=== PATIENT | male | born 1960 | race Caucasian/White ===

== ENCOUNTER 2019-10-17 13:48 | Emergency (ER) | payer MEDICARE ==
[2019-10-17 14:06] VITALS: RESP 18
--- NOTE | 2019-10-17 14:15 | ED ---
Extremity Problem HPI - General Chief complaint: Extremity Problem,Nontraumatic Stated complaint: R leg pain Time Seen by Provider: 10/17/19 13:53 Source: patient, RN notes reviewed, old records reviewed Mode of arrival: ambulatory Limitations: no limitations - History of Present Illness Initial comments: this is a 59-year-old male date ER considered for evaluation regards to right leg pain severe history of venous disease and varices. Patient's concerned about clot has pain in his right calf up his right leg. No history of blood clots no chills. No chest pain or shortness of breath. Patient is unable to this. No recent surgeries. MD Complaint: extremity pain, extremity swelling, other (right lower pain) -: days(s) Location: right, lower extremity History of Same: Yes (not as severe) Radiation: proximal Severity scale (1-10): 6 Quality: aching Consistency: constant Improves with: nothing Worsens with: nothing Associated Symptoms: denies other symptoms - Related Data Home Medications Medication Instructions Recorded Confirmed Budesonide-Formot 160-4.5 Mcg 2 puff INHALATION BID 06/02/15 10/04/15 [Symbicort 160-4.5 Mcg Inhaler] Enalapril [Vasotec] 10 mg PO BID 06/02/15 10/04/15 Ipratropium/Albuterol Sulfate 2 puff INHALATION BID 06/02/15 10/04/15 [Combivent Respimat Inhaler] Isosorbide Dinitrate 30 mg PO DAILY 06/02/15 10/04/15 Metoprolol Tartrate 25 mg PO BID 06/02/15 10/04/15 Nitroglycerin Sl Tabs [Nitrostat] 0.4 mg SUBLINGUAL Q5M PRN 06/02/15 10/04/15 amLODIPine [Norvasc] 10 mg PO DAILY 06/02/15 10/04/15 glyBURIDE/METFORMIN HCL 2 each PO BID 06/02/15 10/04/15 [glyBURIDE/METFORMIN HCL 5-500 mg] Insulin Detemir [Levemir Flextouch] 53 units SQ DAILY 06/09/15 10/04/15 Atorvastatin [Lipitor] 40 mg PO DAILY 08/03/15 10/04/15 Hydrochlorothiazide [Hydrodiuril] 25 mg PO DAILY 08/03/15 10/04/15 Linagliptin [Tradjenta] 5 mg PO DAILY 08/03/15 10/04/15 Gabapentin 600 mg PO TID 10/04/15 10/04/15 HYDROcodone/APAP 10-325MG [[place] 10 mg PO Q6H PRN 10/04/15 10/04/15 10-325] Previous Rx's Medication Instructions Recorded traMADol HCL [Ultram] 50 mg PO Q8H PRN #90 tab 09/06/15 Apixaban [Eliquis Starter Pack 0 mg PO DIRECTED 30 Days #1 pack 10/17/19 (for VTE)] Apixaban [Eliquis] 5 mg PO BID #60 tab 10/17/19 Allergies Allergy/AdvReac Type Severity Reaction Status Date / Time No Known Allergies Allergy Verified 10/04/15 13:43 Review of Systems ROS Statement: Those systems with pertinent positive or pertinent negative responses have been documented in the HPI. ROS Other: All systems not noted in ROS Statement are negative. Past Medical History Past Medical History: Chest Pain / Angina, Heart Failure, COPD, Diabetes Mellitus, Hyperlipidemia, Hypertension, Myocardial Infarction ([place]), Sleep Apnea/CPAP/BIPAP Additional Past Medical History / Comment(s): wound rt talley Last Myocardial Infarction Date:: 1987 History of Any Multi-Drug Resistant Organisms: None Reported Past Surgical History: Adenoidectomy, Cholecystectomy, Heart Catheterization, Tonsillectomy Additional Past Surgical History / Comment(s): UPP, mastoidectomy, septoplasty Past Anesthesia/Blood Transfusion Reactions: No Reported Reaction Past Psychological History: No Psychological Hx Reported Smoking Status: Current every day smoker Past Alcohol Use History: Occasional Past Drug Use History: None Reported - Past Family History Mother Family Medical History: No Reported History Father Family Medical History: Hypertension General Exam Limitations: no limitations General appearance: alert, in no apparent distress Head exam: Present: atraumatic, normocephalic, normal inspection Eye exam: Present: normal appearance, PERRL, EOMI. Absent: scleral icterus, conjunctival injection, periorbital swelling ENT exam: Present: normal exam, mucous membranes moist Neck exam: Present: normal inspection. Absent: tenderness, meningismus, lymphadenopathy Respiratory exam: Present: normal lung sounds bilaterally. Absent: respiratory distress, wheezes, rales, rhonchi, stridor Cardiovascular Exam: Present: normal rhythm, tachycardia, normal heart sounds. Absent: systolic murmur, diastolic murmur, rubs, gallop, clicks GI/Abdominal exam: Present: soft, normal bowel sounds. Absent: distended, tenderness, guarding, rebound, rigid Extremities exam: Present: normal inspection, full ROM, normal capillary refill, calf tenderness, other (significant laboratory calf tenderness pain now back leg, edema with erythema). Absent: tenderness, pedal edema, joint swelling Back exam: Present: normal inspection Neurological exam: Present: alert, oriented X3, CN II-XII intact Psychiatric exam: Present: normal affect, normal mood Skin exam: Present: warm, dry, intact, normal color. Absent: rash Course Vital Signs 10/17/19 10/17/19 14:01 16:22 Temperature 97.9 F 98.0 F Pulse Rate 111 H 100 Respiratory 18 18 Rate Blood Pressure 164/112 124/82 O2 Sat by Pulse 97 95 Oximetry Medical Decision Making - Medical Decision Making 59 male to the ER for evaluation of right leg pain and swelling. Patient does havey DVT can be discharged on eliquis - Radiology Data Radiology results: report reviewed (US RLE is positive for DVT), image reviewed Disposition Clinical Impression: Deep vein thrombosis (DVT) of lower extremity, Right leg DVT Disposition: HOME SELF-CARE Condition: Good Instructions (If sedation given, give patient instructions): Deep Vein Thrombosis (ED) Prescriptions: Apixaban [Eliquis] 5 mg PO BID #60 tab Apixaban [Eliquis Starter Pack (for VTE)] 0 mg PO DIRECTED 30 Days #1 pack Is patient prescribed a controlled substance at d/c from ED?: No Referrals: Ramirez Neves MD [Primary Care Provider] - 1-2 days
[2019-10-17] MEDS ORDERED: APIXABAN 5 MG TAB PO STA (16:13)
[2019-10-17 16:23] VITALS: BP 124/82; PULSE 100; TEMP 98
--- NOTE | 2019-10-17 17:39 | US ---
EXAMINATION TYPE: US venous doppler duplex LE RT DATE OF EXAM: 10/17/2019 2:51 PM COMPARISON: Prior dated 06/27/2015 CLINICAL HISTORY: dvt. right leg pain x 4 days, no h/o dvt SIDE PERFORMED: Right TECHNIQUE: The lower extremity deep venous system is examined utilizing real time linear array sonog brady with graded compression, doppler sonography and color-flow sonography. VESSELS IMAGED: External Iliac Vein (EIV) Common Femoral Vein Deep Femoral Vein Greater Saphenous Vein * Femoral Vein Popliteal Vein Small Saphenous Vein * Proximal Calf Veins (* superficial vessels) Right Leg: Non compressible internal echoes seen from proximal calf veins extending up through proxi mal femoral vein. IMPRESSION: Deep venous thrombosis identified within the right femoral vein to the level of the commo n femoral vein and including the popliteal vein, report called to the emergency department at the [facility].
== END 2019-10-17 16:26 | disposition home or self-care (01) ==
LOC: EC 13:48
DX: I82.411 Acute embolism and thrombosis of right femoral vein (principal); I82.431 Acute embolism and thrombosis of right popliteal vein; E11.9 Type 2 diabetes mellitus without complications; E78.5 Hyperlipidemia, unspecified; I11.0 Hypertensive heart disease with heart failure; I50.9 Heart failure, unspecified; I25.2 Old myocardial infarction; J44.9 Chronic obstructive pulmonary disease, unspecified; F17.200 Nicotine dependence, unspecified, uncomplicated; Z79.01 Long term (current) use of anticoagulants; Z79.4 Long term (current) use of insulin; Z79.51 Long term (current) use of inhaled steroids; Z79.899 Other long term (current) drug therapy; Z95.5 Presence of coronary angioplasty implant and graft
CPT/HCPCS: 99284

== ENCOUNTER 2024-02-11 00:08 | Emergency (ER) | payer MEDICARE, OTHER ==
[2024-02-11 00:33] VITALS: TEMP 98
--- NOTE | 2024-02-11 01:30 | XR ---
EXAM: XR Abdomen, 1 View CLINICAL HISTORY: ITS.REASON XR Reason: constipation TECHNIQUE: Frontal supine view of the abdomen/pelvis. COMPARISON: No relevant prior studies available. FINDINGS: Gastrointestinal tract: Moderate stool burden consistent with constipation. No dilation. No evidence of obstruction. Organs: Gallbladder has been removed. Bones/joints: No acute osseous abnormalities. IMPRESSION: Moderate stool burden consistent with constipation.
--- NOTE | 2024-02-11 02:50 | ED ---
Abdominal Pain HPI - General Chief Complaint: Abdominal Pain Stated Complaint: Constipation Time Seen by Provider: 02/11/24 01:54 Source: patient Mode of arrival: ambulatory Limitations: no limitations - History of Present Illness Initial Comments: 63-year-old male presented to the ED with a chief complaint of constipation. Patient reports he has not had a bowel movement in the past 3 days. Denies abdominal pain. No nausea or vomiting. No chest pain or shortness of breath. No fever or chills. No other complaints at this time. - Related Data Home Medications Medication Instructions Recorded Confirmed Budesonide-Formot 160-4.5 Mcg 2 puff INHALATION BID 06/02/15 10/04/15 [Symbicort 160-4.5 Mcg Inhaler] Enalapril [Vasotec] 10 mg PO BID 06/02/15 10/04/15 Ipratropium/Albuterol Sulfate 2 puff INHALATION BID 06/02/15 10/04/15 [Combivent Respimat Inhaler] Isosorbide Dinitrate 30 mg PO DAILY 06/02/15 10/04/15 Metoprolol Tartrate 25 mg PO BID 06/02/15 10/04/15 Nitroglycerin Sl Tabs [Nitrostat] 0.4 mg SUBLINGUAL Q5M PRN 06/02/15 10/04/15 amLODIPine [Norvasc] 10 mg PO DAILY 06/02/15 10/04/15 glyBURIDE/METFORMIN HCL 2 each PO BID 06/02/15 10/04/15 [glyBURIDE/METFORMIN HCL 5-500 mg] Insulin Detemir [Levemir Flextouch] 53 units SQ DAILY 06/09/15 10/04/15 Atorvastatin [Lipitor] 40 mg PO DAILY 08/03/15 10/04/15 Linagliptin [Tradjenta] 5 mg PO DAILY 08/03/15 10/04/15 hydroCHLOROthiazide [Hydrodiuril] 25 mg PO DAILY 08/03/15 10/04/15 Gabapentin 600 mg PO TID 10/04/15 10/04/15 HYDROcodone/APAP 10-325MG [[place] 10 mg PO Q6H PRN 10/04/15 10/04/15 10-325] Previous Rx's Medication Instructions Recorded traMADol HCL [Ultram] 50 mg PO Q8H PRN #90 tab 09/06/15 Apixaban [Eliquis Starter Pack 0 mg PO DIRECTED 30 Days #1 pack 10/17/19 (for VTE)] Apixaban [Eliquis] 5 mg PO BID #60 tab 10/17/19 polyethylene glycoL 3350 [Miralax] 17 gm PO DAILY #527 gm 02/11/24 Allergies Allergy/AdvReac Type Severity Reaction Status Date / Time No Known Allergies Allergy Verified 10/04/15 13:43 Review of Systems ROS Statement: Those systems with pertinent positive or pertinent negative responses have been documented in the HPI. ROS Other: All systems not noted in ROS Statement are negative. Past Medical History Past Medical History: Chest Pain / Angina, Heart Failure, COPD, Diabetes Mellit [place], Hyperlipidemia, Hypertension, Myocardial Infarction ([place]), Sleep Apnea/CPAP/BIPAP Additional Past Medical History / Comment(s): wound rt [place] Last Myocardial Infarction Date:: 1987 History of Any Multi-Drug Resistant Organisms: None Reported Past Surgical History: Adenoidectomy, Cholecystectomy, Heart Catheterization, Tonsillectomy Additional Past Surgical History / Comment(s): UPP, mastoidectomy, septoplasty, stent in left leg, ablation Past Anesthesia/Blood Transfusion Reactions: No Reported Reaction Past Psychological History: No Psychological Hx Reported Smoking Status: Never smoker Past Alcohol Use History: Occasional Past Drug Use History: None Reported - Past Family History Mother Family Medical History: No Reported History Father Family Medical History: Hypertension General Exam Limitations: no limitations General appearance: alert, in no apparent distress Eye exam: Present: normal appearance Neck exam: Present: normal inspection Respiratory exam: Present: normal lung sounds bilaterally Cardiovascular Exam: Present: regular rate GI/Abdominal exam: Present: soft (Abdomen is soft but there is some distention. No tenderness to palpation. No rebound guarding or rigidity. Bowel sounds active.) Neurological exam: Present: alert, oriented X3 Skin exam: Present: warm, dry Course Vital Signs 02/11/24 00:20 Temperature 98 F Pulse Rate 84 Respiratory 18 Rate Blood Pressure 130/82 O2 Sat by Pulse 98 Oximetry Medical Decision Making - Medical Decision Making Was pt. sent in by a medical professional or institution (, PA, ART HISTORIAN, urgent care, hospital, or residential...) When possible be specific @ -No Did you speak to anyone other than the patient for history (EMS, parent, family, police, friend...)? What history was obtained from this source @ -No Did you review nursing and triage notes (agree or disagree)? Why? @ -I reviewed and agree with nursing and triage notes Were old charts reviewed (outside hosp., previous admission, EMS record, old EKG, old radiological studies, urgent care reports/EKG's, residential records)? Report findings @ -No old charts were reviewed Differential Diagnosis (chest pain, altered mental status, abdominal pain women, abdominal pain men, vaginal bleeding, weakness, fever, dyspnea, syncope, headache, dizziness, GI bleed, back pain, seizure, CVA, palpatations, mental health, musculoskeletal)? @ -Differential Abdominal Pain Men: Appendicitis, cholecystitis, diverticulosis, ischemic bowel, pancreatitis, hepatitis, UTI, gastroenteritis, AAA, incarcerated hernia, bowel obstruction, constipation, inflammatory bowel, hepatitis, peptic ulcer disease, splenic infarction, perforated viscus, testicular torsion, this is not meant to be an all-inclusive list EKG interpreted by me (3pts min.). @ -As above X-rays interpreted by me (1pt min.). @ -X-ray of the abdomen interpreted me showing moderate stool burden consistent with constipation. CT interpreted by me (1pt min.). @ -None done U/S interpreted by me (1pt. min.). @ -None done What testing was considered but not performed or refused? (CT, X-rays, U/S, labs)? Why? @ -None What meds were considered but not given or refused? Why? @ -None Did you discuss the management of the patient with other professionals (zeinab kaur i.e. , PA, ART HISTORIAN, lab, RT, psych nurse, social group worker, slackman, teacher, security patrol officer, case management assistant)? Give summary @ -No Was smoking cessation discussed for >3mins.? @ -No Was critical care preformed (if so, how long)? @ -No Were there social determinants of health that impacted care today? How? (Homelessness, low income, unemployed, alcoholism, drug addiction, transportation, low edu. Level, literacy, decrease access to med. care, senior care, rehab)? @ -No Was there de-escalation of care discussed even if they declined (Discuss DNR or withdrawal of care, Hospice)? DNR status @ -No What co-morbidities impacted this encounter? (DM, HTN, Smoking, COPD, CAD, Cancer, CVA, ARF, Chemo, Hep., AIDS, mental health diagnosis, sleep apnea, morbid obesity)? @ -None Was patient admitted / discharged? Hospital course, mention meds given and route, prescriptions, significant lab abnormalities, going to OR and other pertinent info. @ -Discharge 63-year-old male presented to the ED with complaints of constipation. Has not had a bowel movement in last 3 days. X-ray showed moderate stool burden consistent with constipation. No evidence of obstruction at this time. Patient would like to have an enema and this was provided here in the ED. Discharged home with prescriptions for MiraLAX. Advised to increase fluid intake. Increased fiber intake. Increased physical activity. Discussed return precautions with patient who verbalized agreement. Undiagnosed new problem with uncertain prognosis? @ -No Drug Therapy requiring intensive monitoring for toxicity (Heparin, Nitro, Insulin, Cardizem)? @ -No Were any procedures done? @ -No Diagnosis/symptom? @ -Constipation Acute, or Chronic, or Acute on Chronic? @ -Acute Uncomplicated (without systemic symptoms) or Complicated (systemic symptoms)? @ -Uncomplicated Side effects of treatment? @ -No Exacerbation, Progression, or Severe Exacerbation? @ -No Poses a threat to life or bodily function? How? (Chest pain, [place], [place], pneumonia, PE, COPD, DKA, ARF, appy, cholecystitis, CVA, Diverticulitis, Homicidal, Suicidal, threat to staff... and all critical care pts) @ -No Disposition Clinical Impression: Constipation Disposition: HOME SELF-CARE Condition: Good Instructions (If sedation given, give patient instructions): Constipation (ED), High Fiber Diet (ED) Additional Instructions: Please return to the Emergency Department if symptoms worsen or any other concerns. Please follow-up with your primary care provider. Prescriptions: polyethylene glycoL 3350 [Miralax] 17 gm PO DAILY #527 gm Is patient prescribed a controlled substance at d/c from ED?: No Referrals: Ramirez Neves MD [Primary Care Provider] - 1-2 days Time of Disposition: 02:57
[2024-02-11] MEDS: polyethylene glycoL 3350 17 GM POWD.PACK PO STA (04:14)
[2024-02-11 05:14] VITALS: BP 140/66; PULSE 50; RESP 16
== END 2024-02-11 05:01 | disposition home or self-care (01) ==
LOC: EC 00:08
DX: K59.00 Constipation, unspecified (principal); Z90.49 Acquired absence of other specified parts of digestive tract
CPT/HCPCS: 74018; 99284

== ENCOUNTER 2024-04-20 15:08 | Emergency (ER) | payer MEDICARE, OTHER ==
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
[2024-04-20] MEDS: DIPH,PERTUS(ACELL)TETVAC-LF 0.5 ML VIAL IM ONE (15:31)
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
[2024-04-20 15:39] LABS: Glucose,Whole Blood 313 mg/dL (70-110)
[2024-04-20] MEDS: HYDROmorphone 1 MG/ML 1 ML SYRINGE IVP STA ×2 (15:41→17:58)
[2024-04-20 15:47] LABS: ALT 19 U/L (4-49); AST 28 U/L (17-59); African American GFR (CKD) 85 (>60 ml/min/1.73 sqM); Albumin 3.6 g/dL (3.5-5.0); Alcohol <10 mg/dL; Alkaline Phosphatase 129 U/L (38-126); Anion Gap 7 mmol/L; Blood Urea Nitrogen 23 mg/dL (9-20); Calcium 9.2 mg/dL (8.4-10.2); Carbon Dioxide 22 mmol/L (22-30); Chloride 106 mmol/L (98-107); Glucose 332 mg/dL (74-99); Non-African American GFR(CKD) 73 (>60 ml/min/1.73 sqM); Potassium 4.9 mmol/L (3.5-5.1); Sodium 135 mmol/L (137-145); Total Bilirubin 1.3 mg/dL (0.2-1.3); Total Protein 6.4 g/dL (6.3-8.2)
[2024-04-20 16:03] LABS: INR 1.1 (<1.2); Partial Thromboplastin Time 23.3 sec (22.0-30.0); Prothrombin Time 11.6 sec (10.0-12.5)
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
[2024-04-20 16:25] LABS: Anisocytosis Slight; Basophils # (A) 0.1 k/uL (0-0.2); Basophils % (A) 1 %; Eosinophils # (A) 0.2 k/uL (0-0.7); Eosinophils % (A) 2 %; HCT 52.4 % (39.0-53.0); HGB 14.7 gm/dL (13.0-17.5); Hypochromasia Marked; Lymphocytes # (A) 0.9 k/uL (1.0-4.8); Lymphocytes % (A) 11 %; MCH 20.5 pg (25.0-35.0); MCV 73.2 fL (80.0-100.0); Mean Platelet Volume 8.9; Microcytosis Moderate; Monocytes # (A) 0.8 k/uL (0-1.0); Monocytes % (A) 9 %; Neutrophils # (A) 6.3 k/uL (1.3-7.7); Neutrophils % (A) 74 %; Platelet Count 325 k/uL (150-450); RDW 18.9 % (11.5-15.5); WBC 8.5 k/uL (3.8-10.6)
[2024-04-20 16:27] LABS: RBC 7.17 m/uL (4.30-5.90)
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
[2024-04-20 18:03] VITALS: PULSE 97; RESP 18
[2024-04-20 18:30] VITALS: BP 149/110
[2024-04-20 18:58] LABS: Amphetamine Screen,Urine Not Detected (NotDetected); Barbiturate Screen,Urine Not Detected (NotDetected); Benzodiazepines Screen,Urine Not Detected (NotDetected); Cocaine Screen,Urine Not Detected (NotDetected); Methadone Screen, Urine Not Detected (NotDetected); Opiate Screen,Urine Detected (NotDetected); Oxycodone Screen, Urine Not Detected (NotDetected); Phencyclidine Screen,Urine Not Detected (NotDetected); Tricyclic Antidepressant,Urine Not Detected (NotDetected); Urn Cannabinoid Scrn Not Detected (NotDetected)
== END 2024-04-20 18:30 | disposition other institution (70) ==
LOC: EC 15:08
DX: S32.591A Other specified fracture of right pubis, initial encounter for closed fracture (principal); S32.401A Unspecified fracture of right acetabulum, initial encounter for closed fracture; I44.0 Atrioventricular block, first degree; Z23 Encounter for immunization; V28.49XA Other motorcycle driver injured in noncollision transport accident in traffic accident, initial encounter; Y92.410 Unspecified street and highway as the place of occurrence of the external cause
CPT/HCPCS: 96374; 96376; 90471; 36415; 93005; 86900; 86901; 80053; 85025; 85610; 85730; 86850; 80306; 80320; 72170; 73110; 71045; 72192; 72125; 70450; 73700; 90715; 99291; J1170; 99285

== ENCOUNTER → 2024-12-24 | Outpatient (CLI) | payer MEDICARE ==
[2024-12-24 16:23] LABS: African American GFR (CKD) 56 (>60 ml/min/1.73 sqM); Blood Urea Nitrogen 30 mg/dL (9-20); Non-African American GFR(CKD) 48 (>60 ml/min/1.73 sqM)
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
== END | disposition home or self-care (01) ==
LOC: RADCTMAIN 15:16
PROVIDERS: ATTEND Nurse Practitioner Family
DX: R19.09 Other intra-abdominal and pelvic swelling, mass and lump (principal)
CPT/HCPCS: 82565; 84520; 74177; 36415; Q9967

== ENCOUNTER 2025-03-12 17:01 | Inpatient (IN) | payer MEDICARE ==
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
[2025-03-12 19:18] LABS: Basophils # (A) 0.17 10*3/uL (0.00-0.10); Eosinophils # (A) 0.36 10*3/uL (0.04-0.35); Eosinophils % (A) 4.2 %; HCT 46.8 % (39.6-50.0); HGB 13.7 g/dL (13.0-17.0); Lymphocytes # (A) 0.56 10*3/uL (0.90-5.00); Lymphocytes % (A) 6.5 %; MCH 20.6 pg (27.0-32.0); MCHC 29.3 g/dL (32.0-37.0); MCV 70.4 fL (80.0-97.0); Mean Platelet Volume 9.8 fL (9.5-12.2); Monocytes # (A) 1.09 10*3/uL (0.20-1.00); Monocytes % (A) 12.7 %; Neutrophils # (A) 6.37 10*3/uL (1.80-7.70); Neutrophils % (A) 74.1 %; Platelet Count 321 10*3/uL (140-440); RBC 6.65 10*6/uL (4.40-5.60); WBC 8.59 10*3/uL (4.50-10.00)
--- NOTE | 2025-03-12 19:21 | ED ---
General Adult HPI - General Source: patient, RN notes reviewed Mode of arrival: wheelchair Limitations: no limitations <KierraParveen - Last Filed: 03/12/25 19:19> - General Source: patient, RN notes reviewed <Citlaly Cuenca - Last Filed: 03/12/25 21:42> - General Chief complaint: Shortness of Breath Stated complaint: JAMIA Time Seen by Provider: 03/12/25 17:20 - History of Present Illness Initial comments: Quick note: This is a 64-year-old male with history including AMI, CHF and COPD presenting for difficulty breathing x 6 weeks. Patient states he is also having dyspnea with exertion and orthopnea. States he has been taking Lasix with some relief but has recently been unable to have his prescription refilled by his primary care. Denies chest pain, dizziness, hemoptysis. (Parveen Lozada) 64-year-old male with history of CHF, COPD, and DM, hyperlipidemia, hypertension, CAD presenting for difficulty breathing x 2 months. States he is experiencing dyspnea with exertion and orthopnea. States he feels okay at rest but becomes winded with walking approximately 20 feet. Denies chest pain. He takes Lasix 40 mg daily. States he always has swelling in legs and sees a new vascular surgeon next week however denies change in edema. Admits dry cough in the morning. Denies fevers, chills, abdominal pain. Denies blood thinners. (Citlaly Cuenca) - Related Data Home Medications Medication Instructions Recorded Confirmed Ipratropium/Albuterol Sulfate 2 puff INHALATION RT-DAILY 06/02/15 03/12/25 [Combivent Respimat Inhaler] Dulaglutide [Trulicity] 0.75 mg SQ BAIN 03/12/25 03/12/25 Empagliflozin [Jardiance] 10 mg PO DAILY 03/12/25 03/12/25 Furosemide [Lasix] 40 mg PO BID 03/12/25 03/12/25 Insulin Glargine,Hum.rec.anlog 65 units SQ HS 03/12/25 03/12/25 [Toujemiroslava Solostar] Sacubitril/Valsartan [Entresto 24 1 tab PO BID 03/12/25 03/12/25 mg-26 mg Tablet] cilostazoL [Pletal] 100 mg PO BID 03/12/25 03/12/25 metFORMIN HCL ER [Glucophage XR] 1,000 mg PO W/SUPPER 03/12/25 03/12/25 Allergies Allergy/AdvReac Type Severity Reaction Status Date / Time No Known Allergies Allergy Verified 03/12/25 20:28 Review of Systems ROS Other: All systems not noted in ROS Statement are negative. <Parveen Lozada - Last Filed: 03/12/25 19:19> ROS Other: All systems not noted in ROS Statement are negative. <Citlaly Cuenca - Last Filed: 03/12/25 21:42> ROS Statement: Those systems with pertinent positive or pertinent negative responses have been documented in the HPI. Past Medical History Past Medical History: Chest Pain / Angina, Heart Failure, COPD, Diabetes Mellitus, Hyperlipidemia, Hypertension, Myocardial Infarction ([place]), Sleep A pnea/CPAP/BIPAP Additional Past Medical History / Comment(s): wound rt talley Last Myocardial Infarction Date:: 1987 History of Any Multi-Drug Resistant Organisms: None Reported Past Surgical History: Adenoidectomy, Cholecystectomy, Heart Catheterization, Tonsillectomy Additional Past Surgical History / Comment(s): UPP, mastoidectomy, septoplasty, stent in left leg, ablation Past Anesthesia/Blood Transfusion Reactions: No Reported Reaction Past Psychological History: No Psychological Hx Reported Smoking Status: Never smoker Past Alcohol Use History: Occasional Past Drug Use History: None Reported - Past Family History Mother Family Medical History: No Reported History Father Family Medical History: Hypertension <Parveen Lozada - Last Filed: 03/12/25 19:19> General Exam Limitations: no limitations <Parveen Lozada - Last Filed: 03/12/25 19:19> General appearance: alert, in no apparent distress Head exam: Present: atraumatic, normocephalic, normal inspection Eye exam: Present: normal appearance, PERRL, EOMI. Absent: scleral icterus, conjunctival injection, periorbital swelling ENT exam: Present: normal exam, mucous membranes moist Neck exam: Present: normal inspection. Absent: tenderness, meningismus, lymphadenopathy Respiratory exam: Present: rhonchi. Absent: normal lung sounds bilaterally, respiratory distress, wheezes, rales, stridor Cardiovascular Exam: Present: regular rate, normal rhythm, normal heart sounds. Absent: systolic murmur, diastolic murmur, rubs, gallop, clicks Neurological exam: Present: alert, oriented X3 Psychiatric exam: Present: normal affect, normal mood Skin exam: Present: warm, dry, intact, normal color. Absent: rash <Citlaly Cuenca - Last Filed: 03/12/25 21:42> - General Exam Comments Initial Comments: Visual Physical Exam Vital signs reviewed General: Well-appearing, nontoxic, no acute distress. Head: Normocephalic, atraumatic Eyes: PERRLA, EOMI ENT: Airway patent Chest: Nonlabored breathing Skin: No visual rash, normal skin tone Neuro: Alert and oriented 3 Musculoskeletal: No gross abnormalities (Parveen Lozada) Course Vital Signs 03/12/25 03/12/25 03/12/25 17:02 19:42 20:09 Temperature 98.2 F Pulse Rate 98 96 96 Respiratory 17 20 Rate Blood Pressure 130/78 151/97 116/84 O2 Sat by Pulse 96 97 97 Oximetry EKG Findings - EKG Results: EKG: interpreted by ERMD (EKG reveals ectopic atrial rhythm with first-degree AV block and right axis deviation. Ventricular rate 95 bpm, HI interval 232, QRS duration 126, QT/QTc 424/476) <BangCitlaly - Last Filed: 03/12/25 21:42> Medical Decision Making <Parveen Lozada - Last Filed: 03/12/25 19:19> - Lab Data Result diagrams: 03/12/25 18:21 03/12/25 18:21 <Citlaly Cuenca - Last Filed: 03/12/25 21:42> - Medical Decision Making I completed the quick note portion of this chart signed LEXA [place] (Parveen Lozada) Was pt. sent in by a medical professional or institution (ANÍBAL García, CLINICAL NURSE MANAGER, urgent care, hospital, or long term...) When possible be specific @ -No Did you speak to anyone other than the patient for history (EMS, parent, family, police, friend...)? What history was obtained from this source @ -No Did you review nursing and triage notes (agree or disagree)? Why? @ -I reviewed and agree with nursing and triage notes Were old charts reviewed (outside hosp., previous admission, EMS record, old EKG, old radiological studies, urgent care reports/EKG's, long term records)? Report findings @ -No old charts were reviewed Differential Diagnosis (chest pain, altered mental status, abdominal pain women, abdominal pain men, vaginal bleeding, weakness, fever, dyspnea, syncope, headache, dizziness, GI bleed, back pain, seizure, CVA, palpatations, mental health, musculoskeletal)? @ -Differential Dyspnea: Coronary syndrome, arrhythmia, tamponade, asthma, COPD, pulmonary embolism, pneumonia, pneumothorax, pulmonary effusion, anaphylaxis, diabetic ketoacidosis, flailed chest, pulmonary contusion, diaphragmatic rupture, anemia, neuromuscular, this is not meant to be an all-inclusive list. EKG interpreted by me (3pts min.). @ -As above X-rays interpreted by me (1pt min.). @ -Chest x-ray reveals cardiomegaly and pulmonary vascular congestive changes CT interpreted by me (1pt min.). @ -None done U/S interpreted by me (1pt. min.). @ -None done What testing was considered but not performed or refused? (CT, X-rays, U/S, labs)? Why? @ -None What meds were considered but not given or refused? Why? @ -None Did you discuss the management of the patient with other professionals (professionals i.e. , PA, CLINICAL NURSE MANAGER, lab, RT, psych nurse, social services, greens laborer, teacher, fire officer, therapeutic case manager)? Give summary @ -I spoke with Dr. Bowers from [facility] who accepts admission for acute CHF exacerbation Was smoking cessation discussed for >3mins.? @ -No Was critical care preformed (if so, how long)? @ -No Were there social determinants of health that impacted care today? How? (Homelessness, low income, unemployed, alcoholism, drug addiction, transportation, low edu. Level, literacy, decrease access to med. care, prison, rehab)? @ -No Was there de-escalation of care discussed even if they declined (Discuss DNR or withdrawal of care, Hospice)? DNR status @ -No What co-morbidities impacted this encounter? (DM, HTN, Smoking, COPD, CAD, Cancer, CVA, ARF, Chemo, Hep., AIDS, mental health diagnosis, sleep apnea, morbid obesity)? @ -CHF Was patient admitted / discharged? Hospital course, mention meds given and route, prescriptions, significant lab abnormalities, going to OR and other pertinent info. @ - admitted. 64-year-old male with history of CHF presenting for dyspnea with exertion x 2 months as well as orthopnea. Denies chest pain. Patient is well-appearing, no acute distress. Rhonchi present in bilateral lung [place]. Lab work remarkable for BNP 4310, troponin 0.060, creatinine 1.83, BUN 32. White blood cell count normal at 8. Chest x-ray reveals cardiomegaly and pulmonary vascular congestive changes. Discussed results with patient. Patient will be admitted to medicine. Patient was started on IV Lasix and repeat troponin ordered however will not heparinize at this time as patient is not currently experiencing chest pain and elevated troponin is contributed to CHF exacerbation. Case was discussed with my ED attending Dr. Fernandes. Undiagnosed new problem with uncertain prognosis? @ -No Drug Therapy requiring intensive monitoring for toxicity (Heparin, Nitro, Insulin, Cardizem)? @ -No Were any procedures done? @ -No Diagnosis/symptom? @ -Acute congestive heart failure exacerbation Acute, or Chronic, or Acute on Chronic? @ -Acute Uncomplicated (without systemic symptoms) or Complicated (systemic symptoms)? @ -Complicated Side effects of treatment? @ -No Exacerbation, Progression, or Severe Exacerbation? @ -Exacerbation Poses a threat to life or bodily function? How? (Chest pain, [place], [place], pneumonia, PE, COPD, DKA, ARF, appy, cholecystitis, CVA, Diverticulitis, Homicidal, Suicidal, threat to staff... and all critical care pts) @ -Yes (Citlaly Cuenca) - Lab Data Lab Results 03/12/25 03/12/25 03/12/25 Range/Units 18:21 18:21 18:21 WBC 8.59 (4.50-10.00) 10*3/uL RBC 6.65 H (4.40-5.60) 10*6/uL Hgb 13.7 (13.0-17.0) g/dL Hct 46.8 (39.6-50.0) % MCV 70.4 L (80.0-97.0) fL MCH 20.6 L (27.0-32.0) pg MCHC 29.3 L (32.0-37.0) g/dL Plt Count 321 (140-440) 10*3/uL MPV 9.8 (9.5-12.2) fL Immature Gran % (Auto) 0.5 % Neutrophils % 74.1 % Lymphocytes % 6.5 % Monocytes % 12.7 % Eosinophils % 4.2 % Basophils % 2.0 % Immature Gran # 0.04 (0.00-0.04) 10*3/uL Neutrophils # 6.37 (1.80-7.70) 10*3/uL Lymphocytes # 0.56 L (0.90-5.00) 10*3/uL Monocytes # 1.09 H (0.20-1.00) 10*3/uL Eosinophils # 0.36 H (0.04-0.35) 10*3/uL Basophils # 0.17 H (0.00-0.10) 10*3/uL Manual Slide Review Performed Anisocytosis (manual) Present PT 12.3 (10.0-12.5) sec INR 1.1 (<1.2) APTT 23.6 (22.0-30.0) sec Sodium 138 (137-145) mmol/L Potassium 4.5 (3.5-5.1) mmol/L Chloride 103 (98-107) mmol/L Carbon Dioxide 25 (22-30) mmol/L Anion Gap 10 mmol/L BUN 32 H (9-20) mg/dL Creatinine 1.83 H (0.66-1.25) mg/dL Est GFR (CKD-EPI)AfAm 44 (>60 ml/min/1.73 sqM) Est GFR (CKD-EPI)NonAf 38 (>60 ml/min/1.73 sqM) Glucose 160 H (74-99) mg/dL Plasma Lactic Acid Tonio (0.7-2.0) mmol/L Calcium 9.2 (8.4-10.2) mg/dL Total Bilirubin 1.6 H (0.2-1.3) mg/dL AST 24 (17-59) U/L ALT 12 (4-49) U/L Alkaline Phosphatase 114 (38-126) U/L Troponin I (0.000-0.034) ng/mL NT-Pro-B Natriuret Pep pg/mL Total Protein 6.2 L (6.3-8.2) g/dL Albumin 3.4 L (3.5-5.0) g/dL 03/12/25 03/12/25 03/12/25 Range/Units 18:21 18:21 20:07 WBC (4.50-10.00) 10*3/uL RBC (4.40-5.60) 10*6/uL Hgb (13.0-17.0) g/dL Hct (39.6-50.0) % MCV (80.0-97.0) fL MCH (27.0-32.0) pg MCHC (32.0-37.0) g/dL Plt Count (140-440) 10*3/uL MPV (9.5-12.2) fL Immature Gran % (Auto) % Neutrophils % % Lymphocytes % % Monocytes % % Eosinophils % % Basophils % % Immature Gran # (0.00-0.04) 10*3/uL Neutrophils # (1.80-7.70) 10*3/uL Lymphocytes # (0.90-5.00) 10*3/uL Monocytes # (0.20-1.00) 10*3/uL Eosinophils # (0.04-0.35) 10*3/uL Basophils # (0.00-0.10) 10*3/uL Manual Slide Review Anisocytosis (manual) PT (10.0-12.5) sec INR (<1.2) APTT (22.0-30.0) sec Sodium (137-145) mmol/L Potassium (3.5-5.1) mmol/L Chloride (98-107) mmol/L Carbon Dioxide (22-30) mmol/L Anion Gap mmol/L BUN (9-20) mg/dL Creatinine (0.66-1.25) mg/dL Est GFR (CKD-EPI)AfAm (>60 ml/min/1.73 sqM) Est GFR (CKD-EPI)NonAf (>60 ml/min/1.73 sqM) Glucose (74-99) mg/dL Plasma Lactic Acid Tonio 1.6 (0.7-2.0) mmol/L Calcium (8.4-10.2) mg/dL Total Bilirubin (0.2-1.3) mg/dL AST (17-59) U/L ALT (4-49) U/L Alkaline Phosphatase (38-126) U/L Troponin I 0.060 H* (0.000-0.034) ng/mL NT-Pro-B Natriuret Pep 4310 pg/mL Total Protein (6.3-8.2) g/dL Albumin (3.5-5.0) g/dL Disposition <Parveen Lozada - Last Filed: 03/12/25 19:19> Time of Disposition: 21:42 <Citlaly Cuenca - Last Filed: 03/12/25 21:42> Clinical Impression: Acute exacerbation of congestive heart failure Disposition: ADMITTED IP TO THIS HOSP Referrals: Favio Kirk DO [REFERRING] - 1-2 days
[2025-03-12 19:31] LABS: ALT 12 U/L (4-49); AST 24 U/L (17-59); African American GFR (CKD) 44 (>60 ml/min/1.73 sqM); Albumin 3.4 g/dL (3.5-5.0); Alkaline Phosphatase 114 U/L (38-126); Anion Gap 10 mmol/L; Blood Urea Nitrogen 32 mg/dL (9-20); Calcium 9.2 mg/dL (8.4-10.2); Carbon Dioxide 25 mmol/L (22-30); Chloride 103 mmol/L (98-107); Glucose 160 mg/dL (74-99); Non-African American GFR(CKD) 38 (>60 ml/min/1.73 sqM); Potassium 4.5 mmol/L (3.5-5.1); Sodium 138 mmol/L (137-145); Total Bilirubin 1.6 mg/dL (0.2-1.3); Total Protein 6.2 g/dL (6.3-8.2)
[2025-03-12 19:37] LABS: INR 1.1 (<1.2); Partial Thromboplastin Time 23.6 sec (22.0-30.0); Prothrombin Time 12.3 sec (10.0-12.5)
[2025-03-12 20:18] LABS: Anisocytosis (M) Present
[2025-03-12] MEDS: FUROSEMIDE 10 MG/ML 4 ML VIAL IV STA (22:34)
[2025-03-12] MEDS: FUROSEMIDE 10 MG/ML 4 ML VIAL IV SCH (22:36)
--- NOTE | 2025-03-13 07:04 | XR ---
Chest, 2 view. CLINICAL INDICATION: Male, 64 years old with history of SOB COMPARISON: 03/12/2025 TECHNIQUE: PA and lateral views the chest are obtained. FINDINGS: There is no change in the moderate to marked cardiomegaly and pulmonary vascular congestion. There is no airspace consolidation. There is no pleural effusion or pneumothorax. The osseous structures are intact. IMPRESSION: No interval change. The findings are consistent with mild CHF.. [facility], , 03/13/2025 7:02 AM
[2025-03-13] MEDS ORDERED: DEXTROSE 50% SYRINGE 50 ML IVP PRN ×2 (12:39)
--- NOTE | 2025-03-13 12:44 | P.HPIM ---
History of Present Illness H&P Date: 03/13/25 History of present illness; patient is a 64-year-old gentleman with past medical history significant for CHF, COPD, diabetes presents the ER because of worsening shortness of breath for 6 weeks. Patient stated that his surveillance operator is from [place] and last time he saw a doctor was 3 months ago. Patient stated for the last 6 weeks he has been noticing that he has been short of breath on exertion. Shortness of breath has progressively worsened and patient unable to to walk a few steps before getting winded. Patient also complaining of orthopnea. Patient denies any chest pain. There is no complaint of palpitation. Patient is complaining of swelling of lower extremities. Patient stated that he has gained 30 pounds in the last 6 months. Patient admits to taking Lasix at home but has not been able to refill his medication recently. There is no complaint of fever or chills. Patient denies any nausea, vomiting or abdominal pain. Because of this shortness of breath and orthopnea, patient came to the ER Initial lab work done in the ER showed WBC 8.59, hemoglobin 13.7, platelet count 321, sodium 138, potassium 4.5, BUN 32, creatinine 1.83, glucose 160, troponin 0.060, proBNP 4310 EKG done in the ER showed heart rate of 95, no ST segment elevation or depression seen, no T-wave inversions seen. Chest x-ray done in the ER showed cardiomegaly and mild pulmonary vascular congestion Patient admitted to internal medicine service REVIEW OF SYSTEMS: CONSTITUTIONAL: No fever, no malaise, no fatigue. HEENT: No recent visual problems or hearing problems. Denied any sore throat. CARDIOVASCULAR: As mentioned above PULMONARY: As mentioned above. GASTROINTESTINAL: No diarrhea, no nausea, no vomiting, no abdominal pain. NEUROLOGICAL: No headaches, no weakness, no numbness. HEMATOLOGICAL: Denies any bleeding or petechiae. GENITOURINARY: Denies any burning micturition, frequency, or urgency. MUSCULOSKELETAL/RHEUMATOLOGICAL: Denies any joint pain, swelling, or any muscle pain. ENDOCRINE: Denies any polyuria or polydipsia. The rest of the 14-point review of systems is negative. PHYSICAL EXAMINATION: GENERAL: The patient is alert and oriented x3, not in any acute distress. Well developed, well n ill looking HEENT: Pupils are round and equally reacting to light. EOMI. No scleral icterus. No conjunctival pallor. Normocephalic, atraumatic. No pharyngeal erythema. No thyromegaly. CARDIOVASCULAR: S1 and S2 present. No murmurs, rubs, or gallops. PULMONARY: Good air entry bilaterally, bilateral crackles audible. ABDOMEN: Soft, nontender, nondistended, normoactive bowel sounds. No palpable organomegaly. MUSCULOSKELETAL: No joint swelling or deformity. EXTREMITIES: No cyanosis, clubbing, 3+ pitting edema of lower extremities bilaterally NEUROLOGICAL: Gross neurological examination did not reveal any focal deficits. SKIN: No rashes. Assessment and plan Acute on chronic systolic CHF Elevated troponin Acute kidney injury Acute respiratory distress History of COPD History of hypertension History of hyperlipidemia History of diabetes mellitus Monitor vital signs Monitor CBC Monitor CMP Continue telemetry monitoring Serial troponin Serial EKGs Strict I's and O's, daily weights Continue IV Lasix 40 mg every 8 Ordered breathing treatments Ordered 2D echo Ordered blood glucose monitoring, ordered sliding scale insulin Lantus 20 units twice a day Consult cardiology Consult pulmonary Labs and medication were reviewed.. Continue same treatment. Continue with symptomatic treatment. Resume home medication. Monitor labs and vitals. DVT and GI prophylaxis. Further recommendations as per clinical course of the patient Dictation was produced using Mimiboard dictation software. please excuse any grammatical, word or spelling errors. Past Medical History Past Medical History: Chest Pain / Angina, Heart Failure, COPD, Diabetes Mellitus, Hyperlipidemia, Hypertension, Myocardial Infarction ([place]), Sleep Apnea/CPAP/BIPAP Additional Past Medical History / Comment(s): wound rt talley Last Myocardial Infarction Date:: 1987 History of Any Multi-Drug Resistant Organisms: None Reported Past Surgical History: Adenoidectomy, Cholecystectomy, Heart Catheterization, Tonsillectomy Additional Past Surgical History / Comment(s): UPP, mastoidectomy, septoplasty, stent in left leg, ablation Past Anesthesia/Blood Transfusion Reactions: No Reported Reaction Past Psychological History: No Psychological Hx Reported Smoking Status: Never smoker Past Alcohol Use History: Occasional Past Drug Use History: None Reported - Past Family History Mother Family Medical History: No Reported History Father Family Medical History: Hypertension Medications and Allergies Home Medications Medication Instructions Recorded Confirmed Type Ipratropium/Albuterol Sulfate 2 puff INHALATION RT-DAILY 06/02/15 03/12/25 History [Combivent Respimat Inhaler] Dulaglutide [Trulicity] 0.75 mg SQ BAIN 03/12/25 03/12/25 History Empagliflozin [Jardiance] 10 mg PO DAILY 03/12/25 03/12/25 History Furosemide [Lasix] 40 mg PO BID 03/12/25 03/12/25 History Insulin Glargine,Hum.rec.anlog 65 units SQ HS 03/12/25 03/12/25 History [Toujeo Solostar] Sacubitril/Valsartan [Entresto 24 1 tab PO BID 03/12/25 03/12/25 History mg-26 mg Tablet] cilostazoL [Pletal] 100 mg PO BID 03/12/25 03/12/25 History metFORMIN HCL ER [Glucophage XR] 1,000 mg PO W/SUPPER 03/12/25 03/12/25 History Allergies Allergy/AdvReac Type Severity Reaction Status Date / Time No Known Allergies Allergy Verified 03/12/25 20:28 Physical Exam Vitals: Vital Signs Temp Pulse Resp BP Pulse Ox 03/13/25 07:49 97.8 F 96 20 120/98 96 03/13/25 06:00 97.7 F 92 16 106/91 95 03/13/25 03:00 96 117/96 95 03/13/25 02:00 96 112/98 96 03/12/25 22:45 97 126/96 95 03/12/25 20:09 96 116/84 97 03/12/25 19:42 96 20 151/97 97 03/12/25 17:02 98.2 F 98 17 130/78 96 Intake and Output 03/12/25 03/13/25 03/13/25 22:59 06:59 14:59 Output Total 900 300 Balance -900 -300 Output: Urine 900 300 Other: # Voids 2 Weight 136.078 kg Results CBC & Chem 7: 03/12/25 18:21 03/12/25 18:21 Labs: Abnormal Lab Results - Last 24 Hours (Table) 03/12/25 03/12/25 03/12/25 Range/Units 18:21 18:21 18:21 RBC 6.65 H (4.40-5.60) 10*6/uL MCV 70.4 L (80.0-97.0) fL MCH 20.6 L (27.0-32.0) pg MCHC 29.3 L (32.0-37.0) g/dL Lymphocytes # 0.56 L (0.90-5.00) 10*3/uL Monocytes # 1.09 H (0.20-1.00) 10*3/uL Eosinophils # 0.36 H (0.04-0.35) 10*3/uL Basophils # 0.17 H (0.00-0.10) 10*3/uL BUN 32 H (9-20) mg/dL Creatinine 1.83 H (0.66-1.25) mg/dL Glucose 160 H (74-99) mg/dL Total Bilirubin 1.6 H (0.2-1.3) mg/dL Troponin I 0.060 H* (0.000-0.034) ng/mL Total Protein 6.2 L (6.3-8.2) g/dL Albumin 3.4 L (3.5-5.0) g/dL 03/12/25 03/13/25 03/13/25 Range/Units 22:10 00:57 07:06 RBC (4.40-5.60) 10*6/uL MCV (80.0-97.0) fL MCH (27.0-32.0) pg MCHC (32.0-37.0) g/dL Lymphocytes # (0.90-5.00) 10*3/uL Monocytes # (0.20-1.00) 10*3/uL Eosinophils # (0.04-0.35) 10*3/uL Basophils # (0.00-0.10) 10*3/uL BUN (9-20) mg/dL Creatinine (0.66-1.25) mg/dL Glucose (74-99) mg/dL Total Bilirubin (0.2-1.3) mg/dL Troponin I 0.076 H* 0.071 H* 0.082 H* (0.000-0.034) ng/mL Total Protein (6.3-8.2) g/dL Albumin (3.5-5.0) g/dL
[2025-03-13 16:53] LABS: Glucose,Whole Blood 171 mg/dL (70-110)
[2025-03-13] MEDS: INSULIN LISPRO (HumaLOG) 100 UNIT/ML 10 mL VL SQ SCH (17:09)
[2025-03-13 20:04] LABS: Glucose,Whole Blood 150 mg/dL (70-110)
[2025-03-13] MEDS: SYMBICORT 80-4.5 MCG INHALER INHALATION SCH (20:26)
[2025-03-13] MEDS: cilostazoL 100 MG TAB PO SCH (21:08)
[2025-03-13] MEDS: INSULIN GLARGINE (LANTUS) 100 UNIT/ML SYR SQ SCH (21:08)
[2025-03-14 00:21] LABS: African American GFR (CKD) 44 (>60 ml/min/1.73 sqM); Anion Gap 14 mmol/L; Blood Urea Nitrogen 32 mg/dL (9-20); Calcium 9.2 mg/dL (8.4-10.2); Carbon Dioxide 23 mmol/L (22-30); Chloride 100 mmol/L (98-107); Glucose 164 mg/dL (74-99); Magnesium 1.9 mg/dL (1.6-2.3); Non-African American GFR(CKD) 38 (>60 ml/min/1.73 sqM); Potassium 4.4 mmol/L (3.5-5.1); Sodium 137 mmol/L (137-145)
[2025-03-14 06:01] LABS: Glucose,Whole Blood 137 mg/dL (70-110)
--- NOTE | 2025-03-14 07:53 | P.CRDCN ---
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 The patient stated that he underwent a heart catheterization about a year ago as part of the workup for cardiomyopathy and the heart catheterization came to be unremarkable. This is all by history. He presented to the hospital with 6 weeks progressive ex ertional dyspnea associated with bilateral lower extremities edema and weight gain of 40 pounds. He stated that he was on Lasix as an outpatient and he has been compliant with it and compliant with low-sodium diet. No symptoms of chest pain or chest discomfort or dizziness or lightheadedness or any feeling of heart racing or fluttering or presyncope or syncope. He underwent further workup including an EKG showing overall ectopic atrial rhythm. The troponin came to be mildly elevated. Chest x-ray showed evidence of heart failure/pulmonary vascular congestions. NT proBNP is at 4000. The creatinine came to be slightly elevated. He was started on Lasix IV after he was diagnosed with heart failure and he has been diuresing well. The physical examination is remarkable for regular rhythm with a systolic murmur at the right and left upper sternal border with clear breathing sounds bilaterally and severe bilateral lower EXTR edema noted Assessment HFrEF with evidence of right more than left failure History of cardiomyopathy, nonischemic, by history Multiple comorbid conditions including diabetes and hypertension and dyslipidemia and overweight Chronic kidney disease Plan Obtain the previous medical records including her last heart catheterization An echocardiogram is in process to be done Continue current dose of Lasix IV with monitoring the kidney function and electrolytes Start the patient on heparin IV Add aspirin to the current medical regimen Further recommendation to follow Past Medical History Past Medical History: Chest Pain / Angina, Heart Failure, COPD, Diabetes Mellitus, Hyperlipidemia, Hypertension, Myocardial Infarction ([place]), Sleep Apnea/CPAP/BIPAP Additional Past Medical History / Comment(s): wound rt talley Last Myocardial Infarction Date:: 1987 History of Any Multi-Drug Resistant Organisms: None Reported Past Surgical History: Adenoidectomy, Cholecystectomy, Heart Catheterization, Tonsillectomy Additional Past Surgical History / Comment(s): UPP, mastoidectomy, septoplasty, stent in left leg, ablation Past Anesthesia/Blood Transfusion Reactions: No Reported Reaction Past Psychological History: No Psychological Hx Reported Smoking Status: Never smoker Past Alcohol Use History: Occasional Past Drug Use History: None Reported - Past Family History Mother Family Medical History: No Reported History Father Family Medical History: Hypertension Medications and Allergies Home Medications Medication Instructions Recorded Confirmed Type Ipratropium/Albuterol Sulfate 2 puff INHALATION RT-DAILY 06/02/15 03/12/25 History [Combivent Respimat Inhaler] Dulaglutide [Trulicity] 0.75 mg SQ BAIN 03/12/25 03/12/25 History Empagliflozin [Jardiance] 10 mg PO DAILY 03/12/25 03/12/25 History Furosemide [Lasix] 40 mg PO BID 03/12/25 03/12/25 History Insulin Glargine,Hum.rec.anlog 65 units SQ HS 03/12/25 03/12/25 History [Toujeo Solostar] Sacubitril/Valsartan [Entresto 24 1 tab PO BID 03/12/25 03/12/25 History mg-26 mg Tablet] cilostazoL [Pletal] 100 mg PO BID 03/12/25 03/12/25 History metFORMIN HCL ER [Glucophage XR] 1,000 mg PO W/SUPPER 03/12/25 03/12/25 History Allergies Allergy/AdvReac Type Severity Reaction Status Date / Time No Known Allergies Allergy Verified 03/12/25 20:28 Physical Exam Vitals: Vital Signs Temp Pulse Pulse Resp BP BP Pulse Ox 03/14/25 04:00 97.6 F 96 20 106/83 100 03/14/25 02:00 95 20 03/14/25 00:00 97.9 F 95 20 121/87 99 03/13/25 20:00 97.8 F 95 20 149/64 96 03/13/25 15:20 95 20 130/75 96 03/13/25 14:25 72 16 102/80 99 03/13/25 13:35 87 18 104/85 96 Intake and Output 03/13/25 03/14/25 03/14/25 22:59 06:59 14:59 Intake Total 240 Output Total 850 Balance 240 -850 Intake: Oral 240 Output: Urine 850 Other: Voiding Method Urinal Urinal # Voids 1 2 Weight 136.078 kg 136.1 kg Results 03/12/25 18:21 03/13/25 23:40 Cardiac Enzymes 03/13/25 Range/Units 07:06 Troponin I 0.082 H* (0.000-0.034) ng/mL Comprehensive Metabolic Panel 03/13/25 Range/Units 23:40 Sodium 137 (137-145) mmol/L Potassium 4.4 (3.5-5.1) mmol/L Chloride 100 (98-107) mmol/L Carbon Dioxide 23 (22-30) mmol/L BUN 32 H (9-20) mg/dL Creatinine 1.82 H (0.66-1.25) mg/dL Glucose 164 H (74-99) mg/dL Calcium 9.2 (8.4-10.2) mg/dL Current Medications Generic Name Dose Route Start Last Admin Trade Name Freq PRN Reason Stop Dose Admin Albuterol/Ipratropium 3 ml 03/14/25 08:00 Ipratropium-Albuterol 3 Ml Neb INHALATION RT-DAILY REPLACED BY [facility] Budesonide/Formoterol Fumarate 2 puff 03/13/25 20:00 03/13/25 20:26 Symbicort 80-4.5 Mcg Inhaler INHALATION 2 puff RT-BID JASMEET Administration Cilostazol 100 mg 03/13/25 21:00 03/13/25 21:08 Cilostazol 100 Mg Tab PO 100 mg BID JASMEET Administration Dapagliflozin 5 mg 03/14/25 09:00 Dapagliflozin Propanediol 5 Mg Tablet PO DAILY REPLACED BY [facility] Dextrose/Water 25 ml 03/13/25 12:39 Dextrose 50% Syringe 50 Ml IVP PER PROTOCOL PRN Hypoglycemia Protocol Dextrose/Water 50 ml 03/13/25 12:39 Dextrose 50% Syringe 50 Ml IVP PER PROTOCOL PRN Hypoglycemia Protocol Furosemide 40 mg 03/12/25 22:00 03/14/25 06:14 Furosemide 10 Mg/Ml 4 Ml Vial IV 40 mg Q8H JASMEET Administration Insulin Glargine 20 unit 03/13/25 21:00 03/14/25 06:15 Insulin Glargine (Lantus) 100 Unit/Ml Syr SQ 20 unit BID@0700,2100 JASMEET Administration Insulin Human Lispro 0 unit 03/13/25 17:30 03/14/25 06:07 Insulin Lispro (Humalog) 100 Unit/Ml 10 Ml Vl SQ Not Given ACHS JASMEET Protocol Intake and Output 03/13/25 03/14/25 03/14/25 22:59 06:59 14:59 Intake Total 240 Output Total 850 Balance 240 -850 Intake: Oral 240 Output: Urine 850 Other: Voiding Method Urinal Urinal # Voids 1 2 Weight 136.078 kg 136.1 kg 03/12/25 18:21 03/13/25 23:40
[2025-03-14] MEDS: IPRATROPIUM-ALBUTEROL 3 ML NEB INHALATION SCH (09:46)
--- NOTE | 2025-03-14 09:55 | P.CNPUL ---
History of Present Illness Consult date: 03/13/25 Reason for consult: dyspnea History of present illness: This is a 64-year-old male patient presented to the hospital with worsening shortness of breath. The dyspnea is subacute onset progressively getting worse over the past 6 weeks. The patient has noted exertional dyspnea and orthopnea. Denied having any chest pain. No palpitations. He also had some increased swelling lower extremities and weight gain in order of 30 pounds over the past 6 months. In the emergency, the patient was afebrile. Normotensive, room air pulse ox was 96% and the EKG showed a ectopic atrial tachycardia with a plan to be afebrile and the bundle branch block pattern/RBBB and old Q waves involving the anterior leads. The blood work showed a white cell count of 8.5, hemoglobin 13.7 and a platelet count of 321. Normal coagulation profile. BUN 32 with a creatinine 1.8. Normal electrolytes. Troponins were elevated 0.07 and 0.08 respectively and the proBNP level was 4310. Blood sugar was at 150. Chest x-ray was noted and it showed moderate/marked cardiomegaly with pulmonary vascular congestion. No airspace disease. No consolidation. Past medical history includes COPD, hypertension, hyperlipidemia, diabetes mellitus. Patient's previous creatinine from November 2024 was 1.45 and had a GFR of 48 consistent with stage IIIa chronic kidney disease. Creatinine is higher compared to the baseline. Previous Review of Systems CONSTITUTIONAL: No fever, no malaise, no fatigue. HEENT: No recent visual problems or hearing problems. Denied any sore throat. CARDIOVASCULAR: As mentioned above PULMONARY: As mentioned above. GASTROINTESTINAL: No diarrhea, no nausea, no vomiting, no abdominal pain. NEUROLOGICAL: No headaches, no weakness, no numbness. HEMATOLOGICAL: Denies any bleeding or petechiae. GENITOURINARY: Denies any burning micturition, frequency, or urgency. MUSCULOSKELETAL/RHEUMATOLOGICAL: Denies any joint pain, swelling, or any muscle pain. ENDOCRINE: Denies any polyuria or polydipsia. Past Medical History Past Medical History: Chest Pain / Angina, Heart Failure, COPD, Diabetes Mellitus, Hyperlipidemia, Hypertension, Myocardial Infarction ([place]), Sleep Apnea/CPAP/BIPAP Additional Past Medical History / Comment(s): wound rt talley Last Myocardial Infarction Date:: 1987 History of Any Multi-Drug Resistant Organisms: None Reported Past Surgical History: Adenoidectomy, Cholecystectomy, Heart Catheterization, Tonsillectomy Additional Past Surgical History / Comment(s): UPP, mastoidectomy, septoplasty, stent in left leg, ablation Past Anesthesia/Blood Transfusion Reactions: No Reported Reaction Past Psychological History: No Psychological Hx Reported Smoking Status: Never smoker Past Alcohol Use History: Occasional Past Drug Use History: None Reported - Past Family History Mother Family Medical History: No Reported History Father Family Medical History: Hypertension Medications and Allergies Home Medications Medication Instructions Recorded Confirmed Type Ipratropium/Albuterol Sulfate 2 puff INHALATION RT-DAILY 06/02/15 03/12/25 History [Combivent Respimat Inhaler] Dulaglutide [Trulicity] 0.75 mg SQ BAIN 03/12/25 03/12/25 History Empagliflozin [Jardiance] 10 mg PO DAILY 03/12/25 03/12/25 History Furosemide [Lasix] 40 mg PO BID 03/12/25 03/12/25 History Insulin Glargine,Hum.rec.anlog 65 units SQ HS 03/12/25 03/12/25 History [Toujeo Solostar] Sacubitril/Valsartan [Entresto 24 1 tab PO BID 03/12/25 03/12/25 History mg-26 mg Tablet] cilostazoL [Pletal] 100 mg PO BID 03/12/25 03/12/25 History metFORMIN HCL ER [Glucophage XR] 1,000 mg PO W/SUPPER 03/12/25 03/12/25 History Allergies Allergy/AdvReac Type Severity Reaction Status Date / Time No Known Allergies Allergy Verified 03/12/25 20:28 Physical Exam Vitals: Vital Signs Temp Pulse Pulse Resp BP BP Pulse Ox 03/13/25 15:20 95 20 130/75 96 03/13/25 14:25 72 16 102/80 99 03/13/25 13:35 87 18 104/85 96 03/13/25 07:49 97.8 F 96 20 120/98 96 03/13/25 06:00 97.7 F 92 16 106/91 95 03/13/25 03:00 96 117/96 95 03/13/25 02:00 96 112/98 96 03/12/25 22:45 97 126/96 95 Intake and Output 03/13/25 03/13/25 03/13/25 06:59 14:59 22:59 Intake Total 240 Output Total 900 300 Balance -900 -300 240 Intake: Oral 240 Output: Urine 900 300 Other: # Voids 2 1 Weight 136.078 kg Results - Laboratory Findings CBC and BMP: 03/12/25 18:21 03/12/25 18:21 PT/INR, D-dimer PT 12.3 sec (10.0-12.5) 03/12/25 18:21 INR 1.1 (<1.2) 03/12/25 18:21 Abnormal lab findings: Abnormal Labs 03/12/25 03/12/25 03/12/25 18:21 18:21 18:21 RBC 6.65 H MCV 70.4 L MCH 20.6 L MCHC 29.3 L Lymphocytes # 0.56 L Monocytes # 1.09 H Eosinophils # 0.36 H Basophils # 0.17 H BUN 32 H Creatinine 1.83 H Glucose 160 H POC Glucose (mg/dL) Total Bilirubin 1.6 H Troponin I 0.060 H* Total Protein 6.2 L Albumin 3.4 L 03/12/25 03/13/25 03/13/25 22:10 00:57 07:06 RBC MCV MCH MCHC Lymphocytes # Monocytes # Eosinophils # Basophils # BUN Creatinine Glucose POC Glucose (mg/dL) Total Bilirubin Troponin I 0.076 H* 0.071 H* 0.082 H* Total Protein Albumin 03/13/25 03/13/25 16:51 20:03 RBC MCV MCH MCHC Lymphocytes # Monocytes # Eosinophils # Basophils # BUN Creatinine Glucose POC Glucose (mg/dL) 171 H 150 H Total Bilirubin Troponin I Total Protein Albumin Assessment and Plan Plan: Progressive dyspnea related to decompensated heart failure with background COPD. Rule out acute on chronic CHF, ejection fraction is unknown. Elevated troponin, rule out non-ST elevation myocardial infarction Acute on chronic kidney disease. The patient has stage IIIa chronic kidney disease at baseline COPD Hypertension Hyperlipidemia Diabetes mellitus Plan Supplemental oxygen as needed, currently on room air oxygen Obtain an echocardiogram to evaluate LV function IV Lasix 40 mg every 8 hours and monitor renal function and urine output Resume Lantus. Patient is also on a combination of Jardiance and Trulicity and Glucophage at home. Patient is also on Entresto. Will hold those medications for now pending cardiology consultation Will continue to follow Hold Entresto for now,
[2025-03-14] MEDS: DAPAGLIFLOZIN PROPANEDIOL 5 MG TABLET PO SCH (10:20)
[2025-03-14] MEDS: HEPARIN SOD,PORK IN 0.45% NACL 25,000 UNIT in 0.45% NACL 1 250ML.BAG IV SCH (10:20)
[2025-03-14] MEDS: ASPIRIN 81 MG PO SCH (10:21)
[2025-03-14 11:08] LABS: Basophils # (A) 0.18 10*3/uL (0.00-0.10); Basophils % (A) 2.1 %; Eosinophils # (A) 0.34 10*3/uL (0.04-0.35); HCT 48.5 % (39.6-50.0); Immature Platelet Fraction 2.8 % (1.1-6.1); Lymphocytes # (A) 0.73 10*3/uL (0.90-5.00); Lymphocytes % (A) 8.6 %; MCH 20.6 pg (27.0-32.0); MCHC 28.9 g/dL (32.0-37.0); MCV 71.3 fL (80.0-97.0); Mean Platelet Volume 9.7 fL (9.5-12.2); Monocytes # (A) 0.99 10*3/uL (0.20-1.00); Monocytes % (A) 11.7 %; Neutrophils # (A) 6.19 10*3/uL (1.80-7.70); Platelet Count 293 10*3/uL (140-440); RDW 23.3 % (11.5-14.5); WBC 8.48 10*3/uL (4.50-10.00)
[2025-03-14 11:17] LABS: Glucose,Whole Blood 179 mg/dL (70-110)
[2025-03-14 11:22] LABS: INR 1.3 (<1.2); Partial Thromboplastin Time 24.1 sec (22.0-30.0); Prothrombin Time 13.5 sec (10.0-12.5)
[2025-03-14 11:55] LABS: Anisocytosis (M) Present; Ovalocytes Present
[2025-03-14 11:56] LABS: Poikilocytosis (M) Present
--- NOTE | 2025-03-14 12:32 | P.PN ---
Subjective Progress Note Date: 03/14/25 patient is a 64-year-old gentleman with past medical history significant for CHF, COPD, diabetes presents the ER because of worsening shortness of breath for 6 weeks. 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 Patient stated for the last 6 weeks he has been noticing that he has been short of breath on exertion. Shortness of breath has progressively worsened and patient unable to to walk a few steps before getting winded. Patient also complaining of orthopnea. Patient denies any chest pain. There is no complaint of palpitation. Patient is complaining of swelling of lower extremities. Patient stated that he has gained 30 pounds in the last 6 months. Patient admits to taking Lasix at home but has not been able to refill his medication recently. There is no complaint of fever or chills. Patient denies any nausea, vomiting or abdominal pain. Because of this shortness of breath and orthopnea, patient came to the ER Initial lab work done in the ER showed WBC 8.59, hemoglobin 13.7, platelet count 321, sodium 138, potassium 4.5, BUN 32, creatinine 1.83, glucose 160, troponin 0.060, proBNP 4310 EKG done in the ER showed heart rate of 95, no ST segment elevation or depression seen, no T-wave inversions seen. Chest x-ray done in the ER showed cardiomegaly and mild pulmonary vascular congestion Patient admitted to internal medicine service 03/14. Patient seen examined. Patient sitting upright in the chair. Still has swelling of lower extremities. Denies any shortness of breath at rest. Labs reviewed this morning showed WBC 8.48, hemoglobin 14, platelet count 293 REVIEW OF SYSTEMS: CONSTITUTIONAL: No fever, no malaise,. CARDIOVASCULAR: No chest pain, no palpitations, no syncope. PULMONARY: As mentioned above GASTROINTESTINAL: No diarrhea, no nausea, no vomiting, no abdominal pain. NEUROLOGICAL: No headaches, no weakness, PHYSICAL EXAMINATION: GENERAL: The patient is alert and oriented x3, not in any acute distress. Well developed, well n ill looking HEENT: Pupils are round and equally reacting to light. EOMI. No scleral icterus. No conjunctival pallor. Normocephalic, atraumatic. No pharyngeal erythema. No thyromegaly. CARDIOVASCULAR: S1 and S2 present. No murmurs, rubs, or gallops. PULMONARY: Good air entry bilaterally, bilateral crackles audible. ABDOMEN: Soft, nontender, nondistended, normoactive bowel sounds. No palpable organomegaly. MUSCULOSKELETAL: No joint swelling or deformity. EXTREMITIES: No cyanosis, clubbing, 3+ pitting edema of lower extremities bilaterally NEUROLOGICAL: Gross neurological examination did not reveal any focal deficits. SKIN: No rashes. Assessment and plan Acute on chronic systolic CHF Elevated troponin Acute kidney injury Acute respiratory distress History of COPD History of hypertension History of hyperlipidemia History of diabetes mellitus Monitor vital signs Monitor CBC Monitor CMP Continue telemetry monitoring Serial troponin Serial EKGs Strict I's and O's, daily weights Continue IV Lasix 40 mg every 8 Continue pharmacy dose heparin Continue breathing treatments Ordered 2D echo Continue blood glucose monitoring continue sliding scale insulin Lantus 20 units twice a day Cardiology following, their notes and recommendations reviewed from 03/13 Pulmonology following, recommendations reviewed from 03/13 Labs and medication were reviewed.. Continue same treatment. Continue with symptomatic treatment. Resume home medication. Monitor labs and vitals. DVT and GI prophylaxis. Further recommendations as per clinical course of the sofie ent Dictation was produced using [employer]aved dictation software. please excuse any grammatical, word or spelling errors. Objective - Vital Signs Vital signs: Vital Signs Temp 97.7 F 03/14/25 08:55 Pulse 75 03/14/25 08:55 Resp 19 03/14/25 08:55 BP 110/79 03/14/25 08:55 Pulse Ox 96 03/14/25 08:55 FiO2 Intake & Output 03/13/25 03/14/25 03/14/25 18:59 06:59 18:59 Intake Total 120 120 360 Output Total 300 850 Balance -180 -730 360 Weight 136.078 kg 136.1 kg Intake: Oral 120 120 360 Output: Urine 300 850 Other: Voiding Method Urinal # Voids 1 2 0 # Bowel Movements 0 - Labs CBC & Chem 7: 03/14/25 10:44 03/13/25 23:40 Labs: Abnormal Lab Results - Last 24 Hours (Table) 03/13/25 03/13/25 03/13/25 Range/Units 16:51 20:03 23:40 RBC (4.40-5.60) 10*6/uL MCV (80.0-97.0) fL MCH (27.0-32.0) pg MCHC (32.0-37.0) g/dL Immature Gran # (0.00-0.04) 10*3/uL Lymphocytes # (0.90-5.00) 10*3/uL Basophils # (0.00-0.10) 10*3/uL PT (10.0-12.5) sec INR (<1.2) BUN 32 H (9-20) mg/dL Creatinine 1.82 H (0.66-1.25) mg/dL Glucose 164 H (74-99) mg/dL POC Glucose (mg/dL) 171 H 150 H (70-110) mg/dL Hemoglobin A1c (<=6.0) % 03/14/25 03/14/25 03/14/25 Range/Units 00:00 05:59 10:44 RBC 6.80 H (4.40-5.60) 10*6/uL MCV 71.3 L (80.0-97.0) fL MCH 20.6 L (27.0-32.0) pg MCHC 28.9 L (32.0-37.0) g/dL Immature Gran # 0.05 H (0.00-0.04) 10*3/uL Lymphocytes # 0.73 L (0.90-5.00) 10*3/uL Basophils # 0.18 H (0.00-0.10) 10*3/uL PT (10.0-12.5) sec INR (<1.2) BUN (9-20) mg/dL Creatinine (0.66-1.25) mg/dL Glucose (74-99) mg/dL POC Glucose (mg/dL) 137 H (70-110) mg/dL Hemoglobin A1c 7.3 H (<=6.0) % 03/14/25 03/14/25 Range/Units 10:44 11:16 RBC (4.40-5.60) 10*6/uL MCV (80.0-97.0) fL MCH (27.0-32.0) pg MCHC (32.0-37.0) g/dL Immature Gran # (0.00-0.04) 10*3/uL Lymphocytes # (0.90-5.00) 10*3/uL Basophils # (0.00-0.10) 10*3/uL PT 13.5 H (10.0-12.5) sec INR 1.3 H (<1.2) BUN (9-20) mg/dL Creatinine (0.66-1.25) mg/dL Glucose (74-99) mg/dL POC Glucose (mg/dL) 179 H (70-110) mg/dL Hemoglobin A1c (<=6.0) %
--- NOTE | 2025-03-14 13:34 | P.PN ---
Subjective Progress Note Date: 03/14/25 This is a 64-year-old male patient presented to the hospital with worsening ravindra rtness of breath. The dyspnea is subacute onset progressively getting worse over the past 6 weeks. The patient has noted exertional dyspnea and orthopnea. Denied having any chest pain. No palpitations. He also had some increased swelling lower extremities and weight gain in order of 30 pounds over the past 6 months. In the emergency, the patient was afebrile. Normotensive, room air pulse ox was 96% and the EKG showed a ectopic atrial tachycardia with a plan to be afebrile and the bundle branch block pattern/RBBB and old Q waves involving the anterior leads. The blood work showed a white cell count of 8.5, hemoglobin 13.7 and a platelet count of 321. Normal coagulation profile. BUN 32 with a creatinine 1.8. Normal electrolytes. Troponins were elevated 0.07 and 0.08 respectively and the proBNP level was 4310. Blood sugar was at 150. Chest x-ray was noted and it showed moderate/marked cardiomegaly with pulmonary vascular congestion. No airspace disease. No consolidation. Past medical history includes COPD, hypertension, hyperlipidemia, diabetes mellitus. Patient's previous creatinine from November 2024 was 1.45 and had a GFR of 48 consistent with stage IIIa chronic kidney disease. Creatinine is higher compared to the baseline. Previous On 03/14/2025, the patient is being seen for a follow-up. The patient is feeling well. Continues to have lower extremity edema. Echocardiogram was performed this morning and results are still pending for now. Meanwhile, the patient is still on IV Lasix. No chest pain. No dyspnea at rest. The blood work from today shows a white cell count of 8.4 with a hemoglobin of 14 and a platelet count of 293. INR is at 1.3 with a PT of 13.5. Awaiting follow-up electrolytes. Creatinine from yesterday was at 1.8. Fluid balance is -910 cc over the past 24 hours. The patient is on Lasix 40 mg IV every 8 hours. The patient remains on IV heparin. The patient remains on Lantus insulin. Remains on aspirin and he is also on Symbicort 2 puffs twice a day and DuoNeb neb regiment [id number]. He is a former smoker. He also has obstructive sleep apnea, not utilized CPAP therapy Objective - Vital Signs Vital signs: Vital Signs Temp 97.6 F 03/14/25 04:00 Pulse 96 03/14/25 04:00 Resp 20 03/14/25 04:00 BP 106/83 03/14/25 04:00 Pulse Ox 100 03/14/25 04:00 FiO2 Intake & Output 03/13/25 03/14/25 03/14/25 18:59 06:59 18:59 Intake Total 120 120 360 Output Total 300 850 Balance -180 -730 360 Weight 136.078 kg 136.1 kg Intake: Oral 120 120 360 Output: Urine 300 850 Other: Voiding Method Urinal # Voids 1 2 0 # Bowel Movements 0 - Labs CBC & Chem 7: 03/14/25 10:44 03/13/25 23:40 Labs: Abnormal Lab Results - Last 24 Hours (Table) 03/13/25 03/13/25 03/13/25 Range/Units 16:51 20:03 23:40 BUN 32 H (9-20) mg/dL Creatinine 1.82 H (0.66-1.25) mg/dL Glucose 164 H (74-99) mg/dL POC Glucose (mg/dL) 171 H 150 H (70-110) mg/dL Hemoglobin A1c (<=6.0) % 03/14/25 03/14/25 Range/Units 00:00 05:59 BUN (9-20) mg/dL Creatinine (0.66-1.25) mg/dL Glucose (74-99) mg/dL POC Glucose (mg/dL) 137 H (70-110) mg/dL Hemoglobin A1c 7.3 H (<=6.0) % Assessment and Plan Plan: Progressive dyspnea related to decompensated heart failure with background COPD. Rule out acute on chronic CHF, ejection fraction is unknown. Echocardiogram was performed this morning, awaiting results and the patient remains on IV heparin. Suspect systolic heart failure. Elevated troponin, rule out non-ST elevation myocardial infarction, currently on IV heparin Acute on chronic kidney disease. The patient has stage IIIa chronic kidney disease at baseline COPD Hypertension Hyperlipidemia Diabetes mellitus Obesity with a BMI of 40.7 Struct of sleep apnea, not receiving CPAP therapy Former smoker. Plan Supplemental oxygen as needed, currently on room air oxygen Obtain an echocardiogram to evaluate LV function, results are still pending Continue Symbicort Continue DuoNeb [id number] IV Lasix 40 mg every 8 hours and monitor renal function and urine output continue Lantus. Patient is also on a combination of Jardiance and Trulicity and Glucophage at home. Patient is also on Entresto. Will hold those medications for now pending cardiology consultation. Entresto is currently on hold. Trulicity and Jardiance are also on hold. The patient is on Farxiga. Will continue to follow Time with Patient: Greater than 30
--- NOTE | 2025-03-14 15:44 | CA ---
Transthoracic Echo Report Name: Dennis Holbrook Age: 64 Gender: M : 1960 Exam Date: 03/14/2025 13:04 Exam Location: [facility] Ht (in): 72 Wt (lb): 300 Ordering Physician: Kan Hicks MD Attending/Referring Phys: Mass Spectrometry Specialist Renetta Bautista RDCS Procedure CPT: Indications: Heart failure Cardiac Hx: Technical Quality: Fair Contrast 1: Definity Total Dose (mL): 5 Contrast 2: Total Dose (mL): MEASUREMENTS (Male / Female) Normal Values 2D ECHO LV Diastolic Diameter PLAX 6.7 cm 4.2 - 5.9 / 3.9 - 5.3 cm LV Systolic Diameter PLAX 6.2 cm IVS Diastolic Thickness 1.2 cm 0.6 - 1.0 / 0.6 - 0.9 cm LVPW Diastolic Thickness 1.4 cm 0.6 - 1.0 / 0.6 - 0.9 cm LV Relative Wall Thickness 0.4 LVOT Diameter 2.5 cm LV Diastolic Volume MOD BP 278.8 cm??? 67 - 155 / 56 - 104 cm??? LV Systolic Volume MOD BP 181.6 cm??? 22 - 58 / 19 - 49 cm??? LV Ejection Fraction MOD BP 34.9 % >= 55 % LV Cardiac Index MOD BP 3400.2 cm???/min???m??? LV Diastolic Volume MOD 4C 298.6 cm??? LV Systolic Volume MOD 4C 213.8 cm??? LV Ejection Fraction MOD 4C 28.4 % LV Cardiac Index MOD 4C 2965.1 cm???/min???m??? LV Diastolic Length 4C 9.6 cm LV Systolic Length 4C 8.9 cm LV Diastolic Volume MOD 2C 256.9 cm??? LV Systolic Volume MOD 2C 151.1 cm??? LV Ejection Fraction MOD 2C 41.2 % LV Cardiac Index MOD 2C 3702.5 cm???/min???m??? LV Diastolic Length 2C 9.8 cm LV Systolic Length 2C 8.8 cm LA Volume 105.9 cm??? 18 - 58 / 22 - 52 cm??? LA Volume Index 39.4 cm???/m??? 16 - 28 cm???/m??? M-MODE LV Diastolic Diameter MM 7.3 cm 4.2 - 5.9 / 3.9 - 5.3 cm LV Systolic Diameter MM 6.5 cm LV Cardiac Index MM Teich 2213.1 cm???/min???m??? IVS Diastolic Thickness MM 1.6 cm 0.6 - 1.0 / 0.6 - 0.9 cm LVPW Diastolic Thickness MM 1.5 cm 0.6 - 1.0 / 0.6 - 0.9 cm LV Relative Wall Thickness MM 0.4 0.24 - 0.42 / 0.22 - 0.42 LV Mass Index MM 227.0 g/m??? 49 - 115 / 43 - 95 g/m??? DOPPLER AV Peak Velocity 97.3 cm/s AV Peak Gradient 3.8 mmHg AV Mean Velocity 78.7 cm/s AV Mean Gradient 2.7 mmHg AV Velocity Time Integral 16.6 cm LVOT Peak Velocity 67.5 cm/s LVOT Peak Gradient 1.8 mmHg LVOT Velocity Time Integral 11.6 cm LVOT Stroke Volume 56.4 cm??? LVOT Stroke Volume Index 22.3 ml/m??? LVOT Cardiac Index 1973.4 cm???/min???m??? AV Area Cont Eq vti 3.4 cm??? AV Area Cont Eq pk 3.4 cm??? TR Peak Velocity 300.2 cm/s TR Peak Gradient 36.0 mmHg Right Atrial Pressure 20.0 mmHg Pulmonary Artery Systolic Pressu 56.0 mmHg Right Ventricular Systolic Press 56.0 mmHg PV Peak Velocity 68.2 cm/s PV Peak Gradient 1.9 mmHg FINDINGS Left Ventricle Left ventricular ejection fraction is estimated at 20-25% with beat to beat variability. Severely increased left ventricular mass. Mildly increased septal wall thickness. Moderately increased posterior wall thickness. Severely decreased fractional shortening. Severely decreased midwall fractional shortening. Moderately increased left ventricular diastolic diameter. Severely increased left ventricular diastolic volume. Severely increased left ventricular systolic volume. Severely reduced global left ventricular systolic function. Right Ventricle Moderate right ventricular dilatation. Moderately reduced right ventricular global systolic function. Severe pulmonary hypertension. Right ventricular systolic pressure estimated at 56 mm hg. Right Atrium Severe right atrial dilatation. Left Atrium Moderately increased left atrial volume. Mildly increased left atrial area. Mitral Valve Structurally normal mitral valve. No evidence for mitral valve prolapse. No mitral stenosis. Mild to moderate mitral regurgitation. Aortic Valve Trileaflet aortic valve. Aortic valve sclerosis. No aortic valve stenosis or regurgitation. Tricuspid Valve Structurally normal tricuspid valve. No tricuspid stenosis. [id number] tricuspid regurgitation. Pulmonic Valve Structurally normal pulmonic valve. No pulmonic stenosis. Trace pulmonic regurgitation. Pericardium Small pericardial effusion. Aorta Normal size aortic root and proximal ascending aorta. CONCLUSIONS Impaired LV function with EF between 20 to 25% Mild to moderate mitral regurgitation Severe pulmonary hypertension Mild to moderate tricuspid regurgitation Small pericardial effusion Previewed by: Dr. Slade Kat MD (Electronically Signed) Final Date: 14 Mar 2025 15:44
[2025-03-14 17:02] LABS: Glucose,Whole Blood 120 mg/dL (70-110)
[2025-03-14] MEDS: HEPARIN SODIUM 1,000 UN/ML (10ML VL) IV PRN (18:04)
[2025-03-14 19:54] LABS: Glucose,Whole Blood 258 mg/dL (70-110)
[2025-03-15 06:01] LABS: Glucose,Whole Blood 242 mg/dL (70-110)
[2025-03-15 06:36] LABS: HGB 13.6 g/dL (13.0-17.0); MCH 20.3 pg (27.0-32.0); MCHC 28.9 g/dL (32.0-37.0); MCV 70.3 fL (80.0-97.0); Mean Platelet Volume 9.7 fL (9.5-12.2); Platelet Count 324 10*3/uL (140-440); RBC 6.69 10*6/uL (4.40-5.60); RDW 23.2 % (11.5-14.5); WBC 8.21 10*3/uL (4.50-10.00)
[2025-03-15 06:59] LABS: ALT 12 U/L (4-49); AST 19 U/L (17-59); African American GFR (CKD) 48 (>60 ml/min/1.73 sqM); Albumin 3.2 g/dL (3.5-5.0); Alkaline Phosphatase 137 U/L (38-126); Anion Gap 8 mmol/L; Blood Urea Nitrogen 32 mg/dL (9-20); Calcium 8.8 mg/dL (8.4-10.2); Carbon Dioxide 29 mmol/L (22-30); Chloride 99 mmol/L (98-107); Glucose 167 mg/dL (74-99); Non-African American GFR(CKD) 42 (>60 ml/min/1.73 sqM); Potassium 3.6 mmol/L (3.5-5.1); Sodium 136 mmol/L (137-145); Total Bilirubin 1.7 mg/dL (0.2-1.3); Total Protein 6.1 g/dL (6.3-8.2)
[2025-03-15 07:01] LABS: INR 1.2 (<1.2); Partial Thromboplastin Time 38.1 sec (22.0-30.0)
[2025-03-15 08:53] LABS: Eosinophils # (M) 0.16 k/uL (0-0.7); Monocytes # (M) 0.66 k/uL (0-1.0); Neutrophils # (M) 6.49 k/uL (1.3-7.7); Neutrophils % (M) 79 %; Nucleated Red Blood Cells 0 /100 WBC (0-0); Total Cells Counted 100
[2025-03-15 11:29] LABS: Glucose,Whole Blood 101 mg/dL (70-110)
[2025-03-15 13:01] VITALS: BMI 40.7
--- NOTE | 2025-03-15 13:35 | P.PN ---
Subjective Progress Note Date: 03/15/25 patient is a 64-year-old gentleman with past medical history significant for CHF, COPD, diabetes presents the ER because of worsening shortness of breath for 6 weeks. Patient stated that his dehairer is from [place] and last time he saw a doctor was 3 months ago. Patient stated for the last 6 weeks he has been noticing that he has been short of breath on exertion. Shortness of breath has progressively worsened and patient unable to to walk a few steps before getting winded. Patient also complaining of orthopnea. Patient denies any chest pain. There is no complaint of palpitation. Patient is complaining of swelling of lower extremities. Patient stated that he has gained 30 pounds in the last 6 months. Patient admits to taking Lasix at home but has not been able to refill his medication recently. There is no complaint of fever or chills. Patient denies any nausea, vomiting or abdominal pain. Because of this shortness of breath and orthopnea, patient came to the ER Initial lab work done in the ER showed WBC 8.59, hemoglobin 13.7, platelet count 321, sodium 138, potassium 4.5, BUN 32, creatinine 1.83, glucose 160, troponin 0.060, proBNP 4310 EKG done in the ER showed heart rate of 95, no ST segment elevation or depression seen, no T-wave inversions seen. Chest x-ray done in the ER showed cardiomegaly and mild pulmonary vascular congestion Patient admitted to internal medicine service 03/14. Patient seen examined. Patient sitting upright in the chair. Still has swelling of lower extremities. Denies any shortness of breath at rest. Labs reviewed this morning showed WBC 8.48, hemoglobin 14, platelet count 293 03/15. Patient seen and examined. Still has swelling of lower extremities. Patient weight remains same, gets short of breath on exertion. Labs reviewed showing sodium 136, potassium 3.6, BUN 32, creatinine 1.68, glucose 242. 2D echo done showed impaired LV function with EF between 2025%, mild to moderate mitral regurg, severe pulmonary hypertension, mild to moderate tricuspid regurg REVIEW OF SYSTEMS: CONSTITUTIONAL: No fever, no malaise,. CARDIOVASCULAR: No chest pain, no palpitations, no syncope. PULMONARY: As mentioned above GASTROINTESTINAL: No diarrhea, no nausea, no vomiting, no abdominal pain. NEUROLOGICAL: No headaches, no weakness, PHYSICAL EXAMINATION: GENERAL: The patient is alert and oriented x3, not in any acute distress. Well developed, well n ill looking HEENT: Pupils are round and equally reacting to light. EOMI. No scleral icterus. No conjunctival pallor. Normocephalic, atraumatic. No pharyngeal erythema. No t hyromegaly. CARDIOVASCULAR: S1 and S2 present. No murmurs, rubs, or gallops. PULMONARY: Good air entry bilaterally, bilateral crackles audible. ABDOMEN: Soft, nontender, nondistended, normoactive bowel sounds. No palpable organomegaly. MUSCULOSKELETAL: No joint swelling or deformity. EXTREMITIES: No cyanosis, clubbing, 3+ pitting edema of lower extremities bilaterally NEUROLOGICAL: Gross neurological examination did not reveal any focal deficits. SKIN: No rashes. Assessment and plan Acute on chronic systolic CHF Mild to moderate mitral regurg Severe pulmonary hypertension Elevated troponin Acute kidney injury Acute respiratory distress History of COPD History of hypertension History of hyperlipidemia History of diabetes mellitus Monitor vital signs Monitor CBC Monitor CMP Continue telemetry monitoring Strict I's and O's, daily weights Continue IV Lasix 40 mg every 8 Continue pharmacy dose heparin Continue breathing treatments 2D echo done showed impaired LV function with EF between 2025%, mild to moderate mitral regurg, severe pulmonary hypertension, mild to moderate tricuspid regurg Continue blood glucose monitoring continue sliding scale insulin Lantus 20 units twice a day Cardiology following, their notes and recommendations reviewed from 03/15 Pulmonology following, recommendations reviewed from 03/15 Labs and medication were reviewed.. Continue same treatment. Continue with symptomatic treatment. Resume home medication. Monitor labs and vitals. DVT and GI prophylaxis. Further recommendations as per clinical course of the patient Dictation was produced using [employer] dictation software. please excuse any grammatical, word or spelling errors. Objective - Vital Signs Vital signs: Vital Signs Temp 97.4 F L 03/15/25 04:00 Pulse 77 03/15/25 04:00 Resp 16 03/15/25 04:00 BP 117/72 03/15/25 04:00 Pulse Ox 98 03/15/25 04:00 FiO2 Intake & Output 03/14/25 03/15/25 03/15/25 18:59 06:59 18:59 Intake Total 1156.667 515.75 240 Output Total 400 Balance 1156.667 115.75 240 Weight 136.2 kg Intake: Intake, IV Titration 76.667 155.75 Amount Heparin Sod,Pork in 0.45% 76.667 155.75 NaCl 25,000 unit In 0.45 % NaCl 1 250ml.bag @ 7. 3475 UNITS/KG/HR 10 mls/ hr IV .Q24H [facility] Rx#: [id number] Oral 1080 360 240 Output: Urine 400 Other: # Voids 0 2 # Bowel Movements 0 - Labs CBC & Chem 7: 03/15/25 06:08 03/15/25 06:08 Labs: Abnormal Lab Results - Last 24 Hours (Table) 03/14/25 03/14/25 03/14/25 Range/Units 10:44 10:44 11:16 RBC 6.80 H (4.40-5.60) 10*6/uL MCV 71.3 L (80.0-97.0) fL MCH 20.6 L (27.0-32.0) pg MCHC 28.9 L (32.0-37.0) g/dL Immature Gran # 0.05 H (0.00-0.04) 10*3/uL Lymphocytes # 0.73 L (0.90-5.00) 10*3/uL Lymphocytes # (Manual) (1.0-4.8) k/uL Basophils # 0.18 H (0.00-0.10) 10*3/uL PT 13.5 H (10.0-12.5) sec INR 1.3 H (<1.2) APTT (22.0-30.0) sec Sodium (137-145) mmol/L BUN (9-20) mg/dL Creatinine (0.66-1.25) mg/dL Glucose (74-99) mg/dL POC Glucose (mg/dL) 179 H (70-110) mg/dL Total Bilirubin (0.2-1.3) mg/dL Alkaline Phosphatase (38-126) U/L Total Protein (6.3-8.2) g/dL Albumin (3.5-5.0) g/dL 03/14/25 03/14/25 03/15/25 Range/Units 16:57 19:52 06:00 RBC (4.40-5.60) 10*6/uL MCV (80.0-97.0) fL MCH (27.0-32.0) pg MCHC (32.0-37.0) g/dL Immature Gran # (0.00-0.04) 10*3/uL Lymphocytes # (0.90-5.00) 10*3/uL Lymphocytes # (Manual) (1.0-4.8) k/uL Basophils # (0.00-0.10) 10*3/uL PT (10.0-12.5) sec INR (<1.2) APTT (22.0-30.0) sec Sodium (137-145) mmol/L BUN (9-20) mg/dL Creatinine (0.66-1.25) mg/dL Glucose (74-99) mg/dL POC Glucose (mg/dL) 120 H 258 H 242 H (70-110) mg/dL Total Bilirubin (0.2-1.3) mg/dL Alkaline Phosphatase (38-126) U/L Total Protein (6.3-8.2) g/dL Albumin (3.5-5.0) g/dL 03/15/25 03/15/25 03/15/25 Range/Units 06:08 06:08 06:08 RBC 6.69 H (4.40-5.60) 10*6/uL MCV 70.3 L (80.0-97.0) fL MCH 20.3 L (27.0-32.0) pg MCHC 28.9 L (32.0-37.0) g/dL Immature Gran # 0.05 H (0.00-0.04) 10*3/uL Lymphocytes # (0.90-5.00) 10*3/uL Lymphocytes # (Manual) 0.90 L (1.0-4.8) k/uL Basophils # (0.00-0.10) 10*3/uL PT 13.0 H (10.0-12.5) sec INR 1.2 H (<1.2) APTT 38.1 H (22.0-30.0) sec Sodium 136 L (137-145) mmol/L BUN 32 H (9-20) mg/dL Creatinine 1.68 H (0.66-1.25) mg/dL Glucose 167 H (74-99) mg/dL POC Glucose (mg/dL) (70-110) mg/dL Total Bilirubin 1.7 H (0.2-1.3) mg/dL Alkaline Phosphatase 137 H (38-126) U/L Total Protein 6.1 L (6.3-8.2) g/dL Albumin 3.2 L (3.5-5.0) g/dL
--- NOTE | 2025-03-15 15:25 | P.PN ---
Subjective Progress Note Date: 03/15/25 Principal diagnosis: Acute systolic congestive heart failure and underlying COPD This is a 64-year-old male patient presented to the hospital with worsening shortness of breath. The dyspnea is subacute onset progressively getting worse over the past 6 weeks. The patient has noted exertional dyspnea and orthopnea. Denied having any chest pain. No palpitations. He also had some increased swelling lower extremities and weight gain in order of 30 pounds over the past 6 months. In the emergency, the patient was afebrile. Normotensive, room air pulse ox was 96% and the EKG showed a ectopic atrial tachycardia with a plan to be afebrile and the bundle branch block pattern/RBBB and old Q waves involving the anterior leads. The blood work showed a white cell count of 8.5, hemoglobin 13.7 and a platelet count of 321. Normal coagulation profile. BUN 32 with a creatinine 1.8. Normal electrolytes. Troponins were elevated 0.07 and 0.08 respectively and the proBNP level was 4310. Blood sugar was at 150. Chest x-ray was noted and it showed moderate/marked cardiomegaly with pulmonary vascular congestion. No airspace disease. No consolidation. Past medical history includes COPD, hypertension, hyperlipidemia, diabetes mellitus. Patient's previous creatinine from November 2024 was 1.45 and had a GFR of 48 consistent with stage IIIa chronic kidney disease. Creatinine is higher compared to the baseline. Previous On 03/14/2025, the patient is being seen for a follow-up. The patient is feeling well. Continues to have lower extremity edema. Echocardiogram was performed this morning and results are still pending for now. Meanwhile, the patient is still on IV Lasix. No chest pain. No dyspnea at rest. The blood work from today shows a white cell count of 8.4 with a hemoglobin of 14 and a platelet count of 293. INR is at 1.3 with a PT of 13.5. Awaiting follow-up electrolytes. Creatinine from yesterday was at 1.8. Fluid balance is -910 cc over the past 24 hours. The patient is on Lasix 40 mg IV every 8 hours. The patient remains on IV heparin. The patient remains on Lantus insulin. Remains on aspirin and he is also on Symbicort 2 puffs twice a day and DuoNeb neb regiment [id number]. He is a former smoker. He also has obstructive sleep apnea, not utilized CPAP therapy Seen today on 03/15/2025, patient is steadily improving, echocardiogram showed severe LV dysfunction patient is breathing much better today compared to how he felt when he came in. He is still in negative fluid balance, continues on Lasix 40 mg IV push every 8 hours patient is again steadily improving he is a former smoker with known history of mild COPD but is not active. In addition he has obstructive sleep apnea. Objective - Vital Signs Vital signs: Vital Signs Temp 97.4 F L 03/15/25 04:00 Pulse 77 03/15/25 08:00 Resp 16 03/15/25 08:00 BP 117/72 03/15/25 04:00 Pulse Ox 98 03/15/25 04:00 FiO2 Intake & Output 03/14/25 03/15/25 03/15/25 18:59 06:59 18:59 Intake Total 1156.667 515.75 615.329 Output Total 400 1350 Balance 1156.667 115.75 -734.671 Weight 136.2 kg 136.2 kg Intake: Intake, IV Titration 76.667 155.75 135.329 Amount Heparin Sod,Pork in 0.45% 76.667 155.75 135.329 NaCl 25,000 unit In 0.45 % NaCl 1 250ml.bag @ 7. 3475 UNITS/KG/HR 10 mls/ hr IV .Q24H [facility] Rx#: [id number] Oral 1080 360 480 Output: Urine 400 1350 Other: Voiding Method Urinal # Voids 0 2 # Bowel Movements 0 - Exam GENERAL: 64-year-old white male in no distress, obese. HEENT: Pupils are round and equally reacting to light. EOMI. No scleral icterus. No conjunctival pallor. Normocephalic, atraumatic. No pharyngeal erythema. No thyromegaly. CARDIOVASCULAR: S1 and S2 present. No murmurs, rubs, or gallops. PULMONARY: Good air entry bilaterally, bilateral crackles audible. ABDOMEN: Soft, nontender, nondistended, normoactive bowel sounds. No palpable organomegaly. MUSCULOSKELETAL: No joint swelling or deformity. EXTREMITIES: No cyanosis, clubbing, 3+ pitting edema of lower extremities bilaterally, positive cellulitis bilaterally. NEUROLOGICAL: Alert oriented x 3 no focal deficit SKIN: Redness and erythema of lower extremities with chronic venous stasis changes. - Labs CBC & Chem 7: 03/15/25 06:08 03/15/25 06:08 Labs: Abnormal Lab Results - Last 24 Hours (Table) 03/14/25 03/14/25 03/15/25 Range/Units 16:57 19:52 06:00 RBC (4.40-5.60) 10*6/uL MCV (80.0-97.0) fL MCH (27.0-32.0) pg MCHC (32.0-37.0) g/dL Immature Gran # (0.00-0.04) 10*3/uL Lymphocytes # (Manual) (1.0-4.8) k/uL PT (10.0-12.5) sec INR (<1.2) APTT (22.0-30.0) sec Sodium (137-145) mmol/L BUN (9-20) mg/dL Creatinine (0.66-1.25) mg/dL Glucose (74-99) mg/dL POC Glucose (mg/dL) 120 H 258 H 242 H (70-110) mg/dL Total Bilirubin (0.2-1.3) mg/dL Alkaline Phosphatase (38-126) U/L Total Protein (6.3-8.2) g/dL Albumin (3.5-5.0) g/dL 03/15/25 03/15/25 03/15/25 Range/Units 06:08 06:08 06:08 RBC 6.69 H (4.40-5.60) 10*6/uL MCV 70.3 L (80.0-97.0) fL MCH 20.3 L (27.0-32.0) pg MCHC 28.9 L (32.0-37.0) g/dL Immature Gran # 0.05 H (0.00-0.04) 10*3/uL Lymphocytes # (Manual) 0.90 L (1.0-4.8) k/uL PT 13.0 H (10.0-12.5) sec INR 1.2 H (<1.2) APTT 38.1 H (22.0-30.0) sec Sodium 136 L (137-145) mmol/L BUN 32 H (9-20) mg/dL Creatinine 1.68 H (0.66-1.25) mg/dL Glucose 167 H (74-99) mg/dL POC Glucose (mg/dL) (70-110) mg/dL Total Bilirubin 1.7 H (0.2-1.3) mg/dL Alkaline Phosphatase 137 H (38-126) U/L Total Protein 6.1 L (6.3-8.2) g/dL Albumin 3.2 L (3.5-5.0) g/dL Assessment and Plan Assessment: Impression: Acute on chronic systolic congestive heart failure Underlying COPD but in active Acute on chronic kidney disease patient has usually stage IIIa chronic kidney disease Benign essential hypertension Morbid obesity BMI 40.7 Obstructive sleep apnea syndrome noncompliant Former smoker Recommendation: Continue diuretics/Lasix Continue strict I's and O's Continue bronchodilators including DuoNeb and Symbicort Echocardiogram showed LV dysfunction Will continue to follow Time with Patient: Less than 30
[2025-03-15 17:03] LABS: Glucose,Whole Blood 117 mg/dL (70-110)
[2025-03-15 20:06] LABS: Glucose,Whole Blood 157 mg/dL (70-110)
--- NOTE | 2025-03-15 21:25 | P.PN ---
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 The patient stated t hat he underwent a heart catheterization about a year ago as part of the workup for cardiomyopathy and the heart catheterization came to be unremarkable. This is all by history. He presented to the hospital with 6 weeks progressive exertional dyspnea associated with bilateral lower extremities edema and weight gain of 40 pounds. He stated that he was on Lasix as an outpatient and he has been compliant with it and compliant with low-sodium diet. No symptoms of chest pain or chest discomfort or dizziness or lightheadedness or any feeling of heart racing or fluttering or presyncope or syncope. He underwent further workup including an EKG showing overall ectopic atrial rhythm. The troponin came to be mildly elevated. Chest x-ray showed evidence of heart failure/pulmonary vascular congestions. NT proBNP is at 4000. The creatinine came to be slightly elevated. He was started on Lasix IV after he was diagnosed with heart failure and he has been diuresing well. The physical examination is remarkable for regular rhythm with a systolic murmur at the right and left upper sternal border with clear breathing sounds bilaterally and severe bilateral lower EXTR edema noted 03/15/2025 BP 123/73, heart rate 82 bpm BUN 32, creatinine 1.6, hemoglobin 13 Patient still appears volume overloaded, diuresing on IV diuretics however seems to be still suboptimal. Assessment HFrEF with evidence of right more than left failure History of cardiomyopathy, nonischemic, by history Multiple comorbid conditions including diabetes and hypertension and dyslipidemia and overweight Chronic kidney disease Echo showed an EF of 20 to 25%, moderate MR, severe pulm hypertension, moderate TR, small pericardial effusion Plan Introduce Entresto half dose and Aldactone 12.5 mg today Aspirin cilostazol Farxiga 10 Continue IV heparin drip. Discontinue tomorrow morning as patient will complete 48 hours If kidney function is stable, consider cardiac catheterization N.p.o. after midnight Obtain medical records from [facility] Objective - Vital Signs Vital signs: Vital Signs Temp 97.4 F L 03/15/25 04:00 Pulse 82 03/15/25 16:00 Resp 18 03/15/25 16:00 BP 123/73 03/15/25 16:00 Pulse Ox 96 03/15/25 16:00 FiO2 Intake & Output 03/15/25 03/15/25 03/16/25 06:59 18:59 06:59 Intake Total 515.75 970.000 Output Total 400 1350 Balance 115.75 -380.000 Weight 136.2 kg 136.2 kg Intake: Intake, IV Titration 155.75 250.000 Amount Heparin Sod,Pork in 0.45% 155.75 250.000 NaCl 25,000 unit In 0.45 % NaCl 1 250ml.bag @ 7. 3475 UNITS/KG/HR 10 mls/ hr IV .Q24H [facility] Rx#: [id number] Oral 360 720 Output: Urine 400 1350 Other: Voiding Method Urinal # Voids 2 - Labs CBC & Chem 7: 03/15/25 06:08 03/15/25 06:08 Labs: Abnormal Lab Results - Last 24 Hours (Table) 03/15/25 03/15/25 03/15/25 Range/Units 06:00 06:08 06:08 RBC 6.69 H (4.40-5.60) 10*6/uL MCV 70.3 L (80.0-97.0) fL MCH 20.3 L (27.0-32.0) pg MCHC 28.9 L (32.0-37.0) g/dL Immature Gran # 0.05 H (0.00-0.04) 10*3/uL Lymphocytes # (Manual) 0.90 L (1.0-4.8) k/uL PT 13.0 H (10.0-12.5) sec INR 1.2 H (<1.2) APTT 38.1 H (22.0-30.0) sec Sodium (137-145) mmol/L BUN (9-20) mg/dL Creatinine (0.66-1.25) mg/dL Glucose (74-99) mg/dL POC Glucose (mg/dL) 242 H (70-110) mg/dL Total Bilirubin (0.2-1.3) mg/dL Alkaline Phosphatase (38-126) U/L Total Protein (6.3-8.2) g/dL Albumin (3.5-5.0) g/dL 03/15/25 03/15/25 03/15/25 Range/Units 06:08 17:02 17:41 RBC (4.40-5.60) 10*6/uL MCV (80.0-97.0) fL MCH (27.0-32.0) pg MCHC (32.0-37.0) g/dL Immature Gran # (0.00-0.04) 10*3/uL Lymphocytes # (Manual) (1.0-4.8) k/uL PT (10.0-12.5) sec INR (<1.2) APTT 39.2 H (22.0-30.0) sec Sodium 136 L (137-145) mmol/L BUN 32 H (9-20) mg/dL Creatinine 1.68 H (0.66-1.25) mg/dL Glucose 167 H (74-99) mg/dL POC Glucose (mg/dL) 117 H (70-110) mg/dL Total Bilirubin 1.7 H (0.2-1.3) mg/dL Alkaline Phosphatase 137 H (38-126) U/L Total Protein 6.1 L (6.3-8.2) g/dL Albumin 3.2 L (3.5-5.0) g/dL 03/15/25 Range/Units 20:05 RBC (4.40-5.60) 10*6/uL MCV (80.0-97.0) fL MCH (27.0-32.0) pg MCHC (32.0-37.0) g/dL Immature Gran # (0.00-0.04) 10*3/uL Lymphocytes # (Manual) (1.0-4.8) k/uL PT (10.0-12.5) sec INR (<1.2) APTT (22.0-30.0) sec Sodium (137-145) mmol/L BUN (9-20) mg/dL Creatinine (0.66-1.25) mg/dL Glucose (74-99) mg/dL POC Glucose (mg/dL) 157 H (70-110) mg/dL Total Bilirubin (0.2-1.3) mg/dL Alkaline Phosphatase (38-126) U/L Total Protein (6.3-8.2) g/dL Albumin (3.5-5.0) g/dL
[2025-03-15] MEDS: SPIRONOLACTONE 25 MG TAB PO SCH (22:23)
[2025-03-15] MEDS: SACUBITRIL/VALSARTAN 24 MG-26 MG TABLET PO SCH (22:23)
[2025-03-16 05:51] LABS: Glucose,Whole Blood 108 mg/dL (70-110)
[2025-03-16 08:01] LABS: African American GFR (CKD) 45 (>60 ml/min/1.73 sqM); Anion Gap 9 mmol/L; Blood Urea Nitrogen 32 mg/dL (9-20); Calcium 9.1 mg/dL (8.4-10.2); Carbon Dioxide 28 mmol/L (22-30); Chloride 101 mmol/L (98-107); Glucose 104 mg/dL (74-99); Magnesium 1.8 mg/dL (1.6-2.3); Non-African American GFR(CKD) 39 (>60 ml/min/1.73 sqM); Potassium 3.7 mmol/L (3.5-5.1); Sodium 138 mmol/L (137-145)
[2025-03-16] MEDS: DAPAGLIFLOZIN PROPANEDIOL 10 MG TABLET PO SCH (08:14)
[2025-03-16] MEDS ORDERED: NITROGLYCERIN SL TABS 0.4 MG TAB SUBLINGUAL PRN (10:03)
[2025-03-16] MEDS ORDERED: ALPRAZolam 0.5 MG TAB PO PRN (10:03)
[2025-03-16] MEDS ORDERED: ALPRAZolam 0.25 MG TAB PO PRN (10:03)
[2025-03-16] MEDS: AMIODARONE 360 MG in DEXTROSE 5% IN WATER 200 ML IV ONE (10:55)
--- NOTE | 2025-03-16 11:27 | P.PN ---
Subjective Progress Note Date: 03/16/25 patient is a 64-year-old gentleman with past medical history significant for CHF, COPD, diabetes presents the ER because of worsening shortness of breath for 6 weeks. Patient stated that his co pilot is from [place] and last time he saw a doctor was 3 months ago. Patient stated for the last 6 weeks he has been noticing that he has been short of breath on exertion. Shortness of breath has progressively worsened and patient unable to to walk a few steps before getting winded. Patient also complaining of orthopnea. Patient denies any chest pain. There is no complaint of palpitation. Patient is complaining of swelling of lower extremities. Patient stated that he has gained 30 pounds in the last 6 months. Patient admits to taking Lasix at home but has not been able to refill his medication recently. There is no complaint of fever or chills. Patient denies any nausea, vomiting or abdominal pain. Because of this shortness of breath and orthopnea, patient came to the ER Initial lab work done in the ER showed WBC 8.59, hemoglobin 13.7, platelet count 321, sodium 138, potassium 4.5, BUN 32, creatinine 1.83, glucose 160, troponin 0.060, proBNP 4310 EKG done in the ER showed heart rate of 95, no ST segment elevation or depression seen, no T-wave inversions seen. Chest x-ray done in the ER showed cardiomegaly and mild pulmonary vascular congestion Patient admitted to internal medicine service 03/14. Patient seen examined. Patient sitting upright in the chair. Still has swelling of lower extremities. Denies any shortness of breath at rest. Labs reviewed this morning showed WBC 8.48, hemoglobin 14, platelet count 293 03/15. Patient seen and examined. Still has swelling of lower extremities. Patient weight remains same, gets short of breath on exertion. Labs reviewed showing sodium 136, potassium 3.6, BUN 32, creatinine 1.68, glucose 242. 2D echo done showed impaired LV function with EF between 2025%, mild to moderate mitral regurg, severe pulmonary hypertension, mild to moderate tricuspid regurg 03/16. Patient seen and examined. Cardiology added Entresto and Aldactone on 03/15. EKG overnight showed patient to be in atrial flutter, started on amiodarone REVIEW OF SYSTEMS: CONSTITUTIONAL: No fever, no malaise,. CARDIOVASCULAR: No chest pain, no palpitations, no syncope. PULMONARY: As mentioned above GASTROINTESTINAL: No diarrhea, no nausea, no vomiting, no abdominal pain. NEUROLOGICAL: No headaches, no weakness, PHYSICAL EXAMINATION: GENERAL: The patient is alert and oriented x3, not in any acute distress. Well developed, well n ill looking HEENT: Pupils are round and equally reacting to light. EOMI. No scleral icterus. No conjunctival pallor. Normocephalic, atraumatic. No pharyngeal erythema. No thyromegaly. CARDIOVASCULAR: S1 and S2 present. No murmurs, rubs, or gallops. PULMONARY: Good air entry bilaterally, bilateral crackles audible. ABDOMEN: Soft, nontender, nondistended, normoactive bowel sounds. No palpable organomegaly. MUSCULOSKELETAL: No joint swelling or deformity. EXTREMITIES: No cyanosis, clubbing, 3+ pitting edema of lower extremities bilaterally NEUROLOGICAL: Gross neurological examination did not reveal any focal deficits. SKIN: No rashes. Assessment and plan Acute on chronic systolic CHF Mild to moderate mitral regurg Atrial flutter Severe pulmonary hypertension Elevated troponin Acute kidney injury Acute respiratory distress History of COPD History of hypertension History of hyperlipidemia History of diabetes mellitus Monitor vital signs Monitor CBC Monitor CMP Continue telemetry monitoring Strict I's and O's, daily weights Continue IV Lasix 40 mg every 8 Continue pharmacy dose heparin Started on amiodarone drip Continue Entresto, Aldactone Continue breathing treatments 2D echo done showed impaired LV function with EF between 2025%, mild to moderate mitral regurg, severe pulmonary hypertension, mild to moderate tricuspid regurg Continue blood glucose monitoring continue sliding scale insulin Lantus 20 units twice a day Cardiology following, their notes and recommendations reviewed from 03/16, planning cardiac cath Pulmonology following, recommendations reviewed from 03/16 Labs and medication were reviewed.. Continue same treatment. Continue with symptomatic treatment. Resume home medication. Monitor labs and vitals. DVT and GI prophylaxis. Further recommendations as per clinical course of the patient Dictation was produced using [employer] dictation software. please excuse any grammatical, word or spelling errors. Objective - Vital Signs Vital signs: Vital Signs Temp 97.8 F 03/16/25 08:05 Pulse 92 03/16/25 08:22 Resp 18 03/16/25 08:05 BP 127/88 05/20/25 08:05 Pulse Ox 97 03/16/25 08:05 FiO2 Intake & Output 03/15/25 03/16/25 03/16/25 18:59 06:59 18:59 Intake Total 970.000 474.516 Output Total 1350 1100 Balance -380.000 -625.484 Weight 136.2 kg 136.3 kg Intake: Intake, IV Titration 250.000 234.516 Amount Heparin Sod,Pork in 0.45% 250.000 234.516 NaCl 25,000 unit In 0.45 % NaCl 1 250ml.bag @ 7. 3475 UNITS/KG/HR 10 mls/ hr IV .Q24H [facility] Rx#: [id number] Oral 720 240 Output: Urine 1350 1100 Other: Voiding Method Urinal Urinal Urinal - Labs CBC & Chem 7: 03/15/25 06:08 03/16/25 06:17 Labs: Abnormal Lab Results - Last 24 Hours (Table) 03/15/25 03/15/25 03/15/25 Range/Units 17:02 17:41 20:05 APTT 39.2 H (22.0-30.0) sec BUN (9-20) mg/dL Creatinine (0.66-1.25) mg/dL Glucose (74-99) mg/dL POC Glucose (mg/dL) 117 H 157 H (70-110) mg/dL 03/16/25 03/16/25 Range/Units 00:20 06:17 APTT 45.5 H (22.0-30.0) sec BUN 32 H (9-20) mg/dL Creatinine 1.77 H (0.66-1.25) mg/dL Glucose 104 H (74-99) mg/dL POC Glucose (mg/dL) (70-110) mg/dL
--- NOTE | 2025-03-16 11:40 | P.NPCON ---
History of Present Illness - Reason for Consult acute renal failure, chronic renal failure - History of Present Illness Reason for consultation: Acute kidney injury on chronic kidney disease History of present illness: Patient is a 64-year-old male seen in renal consultation for acute kidney injury on chronic kidney disease. Patient has chronic kidney disease stage IIIa with creatinine 1.49 dated December 24, 2024. Creatinine this admission has been in the range of 1.6-1.8. Patient came to the hospital due to shortness of breath which was progressively getting worse over the last 2 months. Patient states he does have history of COPD. He does not wear oxygen at home. Chest x-ray on admission was suggestive of fluid overload. He is currently maintained on IV Lasix. He is also on Farxiga. Additionally he is also on Entresto and Aldactone by cardiology. He is currently maintained on heparin drip. Cardiac catheterization is being considered. He denies chest pain. Denies gross hematuria or dysuria. Admits to occasional use of NSAIDs. He does have history of diabetes. Vital signs are stable. General: No acute distress. HEENT: Head exam is unremarkable. LUNGS: No audible rhonchi or wheezes. HEART: Rate and Rhythm are regular. ABDOMEN: Obese, nontender. EXTREMITITES: 2+ edema. Chronic changes noted. Past Medical History Past Medical History: Chest Pain / Angina, Heart Failure, COPD, Diabetes Mellitus, Hyperlipidemia, Hypertension, Myocardial Infarction (ME), Sleep Apnea/CPAP/BIPAP Additional Past Medical History / Comment(s): wound rt talley Last Myocardial Infarction Date:: 1987 History of Any Multi-Drug Resistant Organisms: None Reported Past Surgical History: Adenoidectomy, Cholecystectomy, Heart Catheterization, Tonsillectomy Additional Past Surgical History / Comment(s): UPP, mastoidectomy, septoplasty, stent in left leg, ablation Past Anesthesia/Blood Transfusion Reactions: No Reported Reaction Past Psychological History: No Psychological Hx Reported Smoking Status: Never smoker Past Alcohol Use History: Occasional Past Drug Use History: None Reported - Past Family History Mother Family Medical History: No Reported History Father Family Medical History: Hypertension Medications and Allergies Home Medications Medication Instructions Recorded Confirmed Type Ipratropium/Albuterol Sulfate 2 puff INHALATION RT-DAILY 06/02/15 03/12/25 History [Combivent Respimat Inhaler] Dulaglutide [Trulicity] 0.75 mg SQ BAIN 03/12/25 03/12/25 History Empagliflozin [Jardiance] 10 mg PO DAILY 03/12/25 03/12/25 History Furosemide [Lasix] 40 mg PO BID 03/12/25 03/12/25 History Insulin Glargine,Hum.rec.anlog 65 units SQ HS 03/12/25 03/12/25 History [Toujeo Solostar] Sacubitril/Valsartan [Entresto 24 1 tab PO BID 03/12/25 03/12/25 History mg-26 mg Tablet] cilostazoL [Pletal] 100 mg PO BID 03/12/25 03/12/25 History metFORMIN HCL ER [Glucophage XR] 1,000 mg PO W/SUPPER 03/12/25 03/12/25 History Allergies Allergy/AdvReac Type Severity Reaction Status Date / Time No Known Allergies Allergy Verified 03/12/25 20:28 Physical Exam Vitals: Vital Signs Temp Pulse Pulse Resp BP Pulse Ox 03/16/25 11:00 97.7 F 88 18 130/89 95 03/16/25 08:22 92 03/16/25 08:11 88 03/16/25 08:05 97.8 F 97 18 127/88 97 03/16/25 04:00 98.1 F 97 19 117/81 96 03/15/25 23:56 98.1 F 95 19 102/62 95 03/15/25 20:00 97.7 F 95 18 124/78 96 03/15/25 16:00 82 18 123/73 96 03/15/25 14:00 92 16 03/15/25 12:00 92 16 127/90 97 Intake and Output 03/15/25 03/16/25 03/16/25 22:59 06:59 14:59 Intake Total 594.671 234.516 Output Total 600 500 900 Balance -5.329 -265.484 -900 Intake: Intake, IV Titration 114.671 234.516 Amount Heparin Sod,Pork in 0.45% 114.671 234.516 NaCl 25,000 unit In 0.45 % NaCl 1 250ml.bag @ 7. 3475 UNITS/KG/HR 10 mls/ hr IV .Q24H [facility] Rx#: [id number] Oral 480 Output: Urine 600 500 900 Other: Voiding Method Urinal Urinal Urinal Weight 136.3 kg Results - Lab Results Most recent lab results Calcium 9.1 mg/dL (8.4-10.2) 03/16/25 06:17 Magnesium 1.8 mg/dL (1.6-2.3) 03/16/25 06:17 03/15/25 06:08 03/16/25 06:17 Assessment and Plan Plan: Assessment: 1. Acute kidney injury secondary to ATN secondary to cardiorenal syndrome. Creatinine stable in the range of 1.6-1.8 this admission. 2. Cardiomyopathy ejection fraction of 20 to 25% with mild to moderate mitral and tricuspid regurgitation. 3. Severe pulmonary hypertension. 4. Volume overload. 5. A-fib with RVR maintained on amiodarone drip. 6. Chronic kidney disease stage IIIa with creatinine 1.49 dated December 24, 2024. Plan: Maintain IV Lasix. Maintain SGLT2 inhibitor. Also on Entresto and Aldactone. Avoid nephrotoxins. Check UA. Check renal ultrasound. Cardiac catheterization being considered. Discussed risk of worsening renal function, potentially requiring renal replacement therapy, post IV contrast exposure. He understands. Hold Lasix and Farxiga before cardiac catheterization tomorrow. Thank you for the consultation. I will continue to follow the patient with you during his hospital stay.
[2025-03-16 11:42] LABS: Glucose,Whole Blood 195 mg/dL (70-110)
--- NOTE | 2025-03-16 13:04 | US ---
EXAMINATION TYPE: US kidneys/renal and bladder DATE OF EXAM: 03/16/2025 COMPARISON: CT 12/24/2024 CLINICAL INDICATION: Male, 64 years old with history of ; AC TECHNIQUE: Grayscale imaging of the bilateral kidneys and urinary bladder: FINDINGS: EXAM MEASUREMENTS: Right Kidney: 12.4 x 5.4 x 7.0 cm Left Kidney: 12.8 x 6.8 x 5.8 cm Prosthetics Assistant notes: exam limited by bowel gas and habitus Right Kidney: There is scattered small cortical cysts, largest measuring 1.6 x 1.6 x 1.7 cm. No hydro nephrosis. Left Kidney: No hydronephrosis or masses seen Bladder: Underdistention limits its evaluation. Bilateral Jets seen: No, limited due to bowel artifact Mild free fluid noted adjacent to right lobe of liver IMPRESSION: 1. No hydronephrosis. 2. A few scattered benign renal cortical cyst right kidney measuring up to 1.7 cm. 3. Trace perihepatic ascites fluid. Clinically correlate. [facility], , 03/16/2025 1:02 PM
--- NOTE | 2025-03-16 13:56 | P.PN ---
Subjective Progress Note Date: 03/16/25 Principal diagnosis: Acute systolic congestive heart failure and underlying COPD This is a 64-year-old male patient presented to the hospital with worsening shortness of breath. The dyspnea is subacute onset progressively getting worse over the past 6 weeks. The patient has noted exertional dyspnea and orthopnea. Denied having any chest pain. No palpitations. He also had some increased swelling lower extremities and weight gain in order of 30 pounds over the past 6 months. In the emergency, the patient was afebrile. Normotensive, room air pulse ox was 96% and the EKG showed a ectopic atrial tachycardia with a plan to be afebrile and the bundle branch block pattern/RBBB and old Q waves involving the anterior leads. The blood work showed a white cell count of 8.5, hemoglobin 13.7 and a platelet count of 321. Normal coagulation profile. BUN 32 with a creatinine 1.8. Normal electrolytes. Troponins were elevated 0.07 and 0.08 respectively and the proBNP level was 4310. Blood sugar was at 150. Chest x-ray was noted and it showed moderate/marked cardiomegaly with pulmonary vascular congestion. No airspace disease. No consolidation. Past medical history includes COPD, hypertension, hyperlipidemia, diabetes mellitus. Patient's previous creatinine from November 2024 was 1.45 and had a GFR of 48 consistent with stage IIIa chronic kidney disease. Creatinine is higher compared to the baseline. Previous On 03/14/2025, the patient is being seen for a follow-up. The patient is feeling well. Continues to have lower extremity edema. Echocardiogram was performed this morning and results are still pending for now. Meanwhile, the patient is still on IV Lasix. No chest pain. No dyspnea at rest. The blood work from today shows a white cell count of 8.4 with a hemoglobin of 14 and a platelet count of 293. INR is at 1.3 with a PT of 13.5. Awaiting follow-up electrolytes. Creatinine from yesterday was at 1.8. Fluid balance is -910 cc over the past 24 hours. The patient is on Lasix 40 mg IV every 8 hours. The patient remains on IV heparin. The patient remains on Lantus insulin. Remains on aspirin and he is also on Symbicort 2 puffs twice a day and DuoNeb neb regiment [id number]. He is a former smoker. He also has obstructive sleep apnea, not utilized CPAP therapy Seen today on 03/15/2025, patient is steadily improving, echocardiogram showed severe LV dysfunction patient is breathing much better today compared to how he felt when he came in. He is still in negative fluid balance, continues on Lasix 40 mg IV push every 8 hours patient is again steadily improving he is a former smoker with known history of mild COPD but is not active. In addition he has obstructive sleep apnea. Patient was seen today on 03/16/2025, patient is improving clinically, feeling much better, breathing a lot easier, patient was admitted mostly with severe LV dysfunction and congestive heart failure. Remains in negative fluid balance remains on diuretics, patient is being followed by cardiology he does have some minimal underlying COPD but interactive. Basic metabolic profile is normal BUN is 32 creatinine 1.77, remains high patient was supposed to have cardiac catheterization which is now presently on hold. Echocardiogram done yesterday showed severe LV dysfunction with ejection fraction of 20 to 25% patient has severe pulmonary hypertension mild to moderate mitral regurgitation and mild to moderate tricuspid regurgitation small pericardial effusion. Objective - Vital Signs Vital signs: Vital Signs Temp 97.7 F 03/16/25 11:00 Pulse 88 03/16/25 11:00 Resp 18 03/16/25 11:00 BP 116/71 03/16/25 11:54 Pulse Ox 95 03/16/25 11:00 FiO2 Intake & Output 03/15/25 03/16/25 03/16/25 18:59 06:59 18:59 Intake Total 970.000 474.516 Output Total 1350 1100 900 Balance -380.000 -625.484 -900 Weight 136.2 kg 136.3 kg Intake: Intake, IV Titration 250.000 234.516 Amount Heparin Sod,Pork in 0.45% 250.000 234.516 NaCl 25,000 unit In 0.45 % NaCl 1 250ml.bag @ 7. 3475 UNITS/KG/HR 10 mls/ hr IV .Q24H [facility] Rx#: [id number] Oral 720 240 Output: Urine 1350 1100 900 Other: Voiding Method Urinal Urinal Urinal - Exam GENERAL: 64-year-old white male in no distress, obese. Remains on room air, O2 sats is 95% HEENT: Pupils are round and equally reacting to light. EOMI. No scleral icterus. No conjunctival pallor. Normocephalic, atraumatic. No pharyngeal erythema. No thyromegaly. CARDIOVASCULAR: S1 and S2 present. No murmurs, rubs, or gallops. PULMONARY: Good air entry bilaterally, bilateral crackles audible. ABDOMEN: Soft, nontender, nondistended, normoactive bowel sounds. No palpable organomegaly. MUSCULOSKELETAL: No joint swelling or deformity. EXTREMITIES: No cyanosis, clubbing, 3+ pitting edema of lower extremities bilaterally, positive cellulitis bilaterally. NEUROLOGICAL: Alert oriented x 3 no focal deficit SKIN: Redness and erythema of lower extremities with chronic venous stasis c hanges. - Labs CBC & Chem 7: 03/15/25 06:08 03/16/25 06:17 Labs: Abnormal Lab Results - Last 24 Hours (Table) 03/15/25 03/15/25 03/15/25 Range/Units 17:02 17:41 20:05 APTT 39.2 H (22.0-30.0) sec BUN (9-20) mg/dL Creatinine (0.66-1.25) mg/dL Glucose (74-99) mg/dL POC Glucose (mg/dL) 117 H 157 H (70-110) mg/dL 03/16/25 03/16/25 03/16/25 Range/Units 00:20 06:17 11:40 APTT 45.5 H (22.0-30.0) sec BUN 32 H (9-20) mg/dL Creatinine 1.77 H (0.66-1.25) mg/dL Glucose 104 H (74-99) mg/dL POC Glucose (mg/dL) 195 H (70-110) mg/dL Assessment and Plan Assessment: Impression: Acute on chronic systolic congestive heart failure Underlying COPD, relatively inactive Acute on chronic kidney disease patient has usually stage IIIa chronic kidney disease Benign essential hypertension Morbid obesity BMI 40.7 Obstructive sleep apnea syndrome noncompliant Former smoker Recommendation: Cardiac catheterization is now on hold, mostly because of his renal status Continue diuretics/Lasix Continue strict I's and O's Continue bronchodilators including DuoNeb and Symbicort Echocardiogram showed LV dysfunction Will continue to follow Time with Patient: Less than 30
--- NOTE | 2025-03-16 14:10 | P.PN ---
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 The patient stated t hat he underwent a heart catheterization about a year ago as part of the workup for cardiomyopathy and the heart catheterization came to be unremarkable. This is all by history. He presented to the hospital with 6 weeks progressive exertional dyspnea associated with bilateral lower extremities edema and weight gain of 40 pounds. He stated that he was on Lasix as an outpatient and he has been compliant with it and compliant with low-sodium diet. No symptoms of chest pain or chest discomfort or dizziness or lightheadedness or any feeling of heart racing or fluttering or presyncope or syncope. He underwent further workup including an EKG showing overall ectopic atrial rhythm. The troponin came to be mildly elevated. Chest x-ray showed evidence of heart failure/pulmonary vascular congestions. NT proBNP is at 4000. The creatinine came to be slightly elevated. He was started on Lasix IV after he was diagnosed with heart failure and he has been diuresing well. The physical examination is remarkable for regular rhythm with a systolic murmur at the right and left upper sternal border with clear breathing sounds bilaterally and severe bilateral lower EXTR edema noted 03/15/2025 BP 123/73, heart rate 82 bpm BUN 32, creatinine 1.6, hemoglobin 13 Patient still appears volume overloaded, diuresing on IV diuretics however seems to be still suboptimal. 03/16 Patient seen and examined. Blood pressure 127/88, heart rate 88, pulse ox 92% on room air. Patient is on a heparin drip. Discussed option of undergoing cardiac catheterization with patient is agreeable to which we will schedule for tomorrow with Dr. Kat. Due to atrial fibrillation, amiodarone drip without bolus started. Echocardiogram reveals EF of 20 to 25%, mild to moderate MR, severe pulmonary hypertension, mild to moderate TR. Small pericardial effusion. The physical examination is remarkable for elevated JVP, irregular rhythm with a systolic murmur at the right and left upper sternal border with mild crackles bilaterally and severe 23 bilateral lower extremity edema noted with chronic skin changes Assessment HFrEF with evidence of right more than left failure History of cardiomyopathy, nonischemic, by history Multiple comorbid conditions including diabetes and hypertension and dyslipidemia and overweight Chronic kidney disease Severe pulmonary hypertension Echo showed an EF of 20 to 25%, moderate MR, severe pulm hypertension, moderate TR, small pericardial effusion Plan Continue Entresto half dose and Aldactone 12.5 mg today Continue aspirin and atorvastatin 40 mg daily Farxiga 10 milligrams daily Continue IV heparin drip for atrial fibrillation. Repeat BMP in the morning Schedule patient for cardiac catheterization tomorrow with Dr. Kat N.p.o. after midnight Obtain medical records from [facility] Nurse practitioner note has been reviewed, I agree with documented findings and plan of care. Patient was seen and examined. Objective - Vital Signs Vital signs: Vital Signs Temp 97.8 F 03/16/25 08:05 Pulse 92 03/16/25 08:22 Resp 18 03/16/25 08:05 BP 127/88 03/16/25 08:05 Pulse Ox 97 03/16/25 08:05 FiO2 Intake & Output 03/15/25 03/16/25 03/16/25 18:59 06:59 18:59 Intake Total 970.000 474.516 Output Total 1350 1100 Balance -380.000 -625.484 Weight 136.2 kg 136.3 kg Intake: Intake, IV Titration 250.000 234.516 Amount Heparin Sod,Pork in 0.45% 250.000 234.516 NaCl 25,000 unit In 0.45 % NaCl 1 250ml.bag @ 7. 3475 UNITS/KG/HR 10 mls/ hr IV .Q24H [facility] Rx#: [id number] Oral 720 240 Output: Urine 1350 1100 Other: Voiding Method Urinal Urinal Urinal - Labs CBC & Chem 7: 03/15/25 06:08 03/16/25 06:17 Labs: Abnormal Lab Results - Last 24 Hours (Table) 03/15/25 03/15/25 03/15/25 Range/Units 17:02 17:41 20:05 APTT 39.2 H (22.0-30.0) sec BUN (9-20) mg/dL Creatinine (0.66-1.25) mg/dL Glucose (74-99) mg/dL POC Glucose (mg/dL) 117 H 157 H (70-110) mg/dL 03/16/25 03/16/25 Range/Units 00:20 06:17 APTT 45.5 H (22.0-30.0) sec BUN 32 H (9-20) mg/dL Creatinine 1.77 H (0.66-1.25) mg/dL Glucose 104 H (74-99) mg/dL POC Glucose (mg/dL) (70-110) mg/dL
[2025-03-16 16:46] LABS: Glucose,Whole Blood 166 mg/dL (70-110)
[2025-03-16] MEDS: AMIODARONE 450 MG in DEXTROSE 5% IN WATER 250 ML IV SCH (17:15)
[2025-03-16 20:02] LABS: Glucose,Whole Blood 186 mg/dL (70-110)
[2025-03-16] MEDS: FUROSEMIDE 10 MG/ML 4 ML VIAL IV SCH (20:28)
[2025-03-16] MEDS: ATORVASTATIN 40 MG TAB PO SCH (20:28)
[2025-03-17 06:29] LABS: Glucose,Whole Blood 139 mg/dL (70-110)
[2025-03-17] MEDS: ATORVASTATIN 80 MG TAB PO ONE (06:50)
[2025-03-17] MEDS: ASPIRIN 325 MG TAB PO ONE (06:50)
[2025-03-17] MEDS ORDERED: HEPARIN SODIUM,PORCINE (1 ML) 2,500 UNIT in SODIUM CHLORIDE 0.9% 250 ML IRRIGATION PRN (07:00)
[2025-03-17] MEDS ORDERED: HEPARIN SODIUM,PORCINE 10,000 UNIT in SODIUM CHLORIDE 0.9% 1,000 ML IRRIGATION PRN (07:00)
[2025-03-17] MEDS: IV FLUID CONTINUATION 1,000 ML IV ONE (07:14)
[2025-03-17] MEDS: MIDAZOLAM 2 MG/2 ML VIAL IVP ONE ×2 (07:42→07:47)
[2025-03-17] MEDS: fentaNYL (PF) 50 MCG/1 ML VIAL IVP ONE (07:43)
[2025-03-17 07:46] LABS: African American GFR (CKD) 50 (>60 ml/min/1.73 sqM); Anion Gap 6 mmol/L; Blood Urea Nitrogen 34 mg/dL (9-20); Calcium 9.4 mg/dL (8.4-10.2); Carbon Dioxide 30 mmol/L (22-30); Chloride 100 mmol/L (98-107); Glucose 130 mg/dL (74-99); Magnesium 1.9 mg/dL (1.6-2.3); Non-African American GFR(CKD) 43 (>60 ml/min/1.73 sqM); Potassium 3.8 mmol/L (3.5-5.1); Sodium 136 mmol/L (137-145)
[2025-03-17] MEDS: LIDOCAINE 1% INJ 10MG/ML (20 ML MDV) SQ ONE (07:57)
[2025-03-17] MEDS: VERAPAMIL 2.5 MG/ML 4 ML VIAL INTRAARTER ONE (07:58)
[2025-03-17] MEDS: HEPARIN SODIUM 1,000 UN/ML (10ML VL) IVP ONE (08:00)
[2025-03-17] MEDS: HEPARIN SODIUM,PORCINE 10,000 UNIT in SODIUM CHLORIDE 0.9% 1,000 ML IRRIGATION ONE (08:06)
[2025-03-17] MEDS: IOPAMIDOL-370 100ML BTL INTRATHECA ONE (08:06)
[2025-03-17] MEDS: HEPARIN SODIUM,PORCINE (1 ML) 2,500 UNIT in SODIUM CHLORIDE 0.9% 250 ML IRRIGATION ONE (08:06)
[2025-03-17] MEDS ORDERED: RX INFO: IV CONTRAST WAS GIVEN 1 EACH MISC MISCELLANE PRN (08:09)
--- NOTE | 2025-03-17 08:11 | P.PCN ---
Date of Procedure: 03/17/25 Operative Findings: CARDIAC CATHETERIZATION PERFORMING PHYSICIAN: Slade Kat MD, RPVI PROCEDURE PERFORMED: 1. Selective right and left coronary angiogram 2. Left heart catheterization 3. Ultrasound-guided access of the right radial artery INDICATION: Cardiomyopathy Abnormal cardiac enzyme COMPLICATION: None APPROACH: Right radial artery LEVEL OF SEDATION: Moderate with a sedation length of 10 minutes PROCEDURE DESCRIPTION: After obtaining an informed consent, the patient was brought to cardiac research laboratory specialist. Local anesthesia was performed using lidocaine subcutaneously. The right radial artery was cannulated using Seldinger technique, under ultrasound guidance, the guidewire passed easily, following that we advanced a 5-Portuguese sheath dilator assembly, the wire and dilator were removed and sheath was flushed. Following that, 2 mg of verapamil along with 5000 unit heparin were given. Selective right and left coronary angiogram using a 5-Portuguese JR4 and JL 3.5 catheters. Following that we did left heart catheterization using 5-Portuguese pigtail catheter. The procedure was completed there was no complication. SELECTIVE CORONARY ANGIOGRAM: The right coronary artery: Large caliber vessel and a dominant vessel and is angiographically normal Left main: Large caliber vessel appears to be angiographically normal as The left circumflex: Large caliber vessel nondominant vessel is angiographically normal and gives rise into a large OM which appears to be no The left anterior descending artery: Is normal and gives rise into a large diagonal branch which also appears to be normal HEMODYNAMICS: The LVEDP was 20 mmHg with no significant gradient across aortic valve CONCLUSION: 1. Normal coronary angio 2. Normal left-sided filling pressure POSTPROCEDURE MANAGEMENT: Medical treatment
[2025-03-17] MEDS: SODIUM CHLORIDE 0.9% 1,000 ML IV SCH (08:49)
[2025-03-17] MEDS: INSULIN GLARGINE (LANTUS) 100 UNIT/ML SYR SQ SCH (09:26)
[2025-03-17] MEDS ORDERED: fentaNYL (PF) 50 MCG/ML 5 ML AMP IVP PRN (09:44)
[2025-03-17] MEDS ORDERED: MIDAZOLAM 2 MG/2 ML VIAL IV PRN (09:44)
--- NOTE | 2025-03-17 10:56 | P.PN ---
Subjective Patient is seen in follow-up for acute kidney injury on chronic kidney disease. Underwent cardiac catheterization this morning which was negative. Denies chest pain or shortness of breath. Has been voiding. Vital signs are stable. General: No acute distress. HEENT: Head exam is unremarkable. LUNGS: No audible rhonchi or wheezes. HEART: Rate and Rhythm are regular. ABDOMEN: Obese, nontender. EXTREMITITES: 1+ edema. Chronic changes noted. Objective - Vital Signs Vital signs: Vital Signs Temp 97.6 F 03/17/25 08:34 Pulse 93 03/17/25 09:22 Resp 20 03/17/25 08:34 BP 119/76 03/17/25 09:22 Pulse Ox 93 L 03/17/25 08:34 FiO2 Intake & Output 03/16/25 03/17/25 03/17/25 18:59 06:59 18:59 Intake Total 739.862 260 890 Output Total 900 Balance -160.138 260 890 Intake: IV 10 20 160 Invasive Line 2 10 20 10 Intake, IV Titration 249.862 250 Amount Amiodarone 450 mg In 250 Dextrose 5% in Water 250 ml @ 0.5 MG/MIN 16.667 mls/hr IV .Q15H [facility] Rx#: [id number] Heparin Sod,Pork in 0.45% 249.862 NaCl 25,000 unit In 0.45 % NaCl 1 250ml.bag @ 7. 3475 UNITS/KG/HR 10 mls/ hr IV .Q24H [facility] Rx#: [id number] Oral 480 240 480 Output: Urine 900 Other: Voiding Method Urinal Urinal Urinal # Voids 1 - Labs CBC & Chem 7: 03/15/25 06:08 03/17/25 06:49 Labs: Abnormal Lab Results - Last 24 Hours (Table) 03/16/25 03/16/25 03/16/25 Range/Units 11:40 16:44 20:00 APTT (22.0-30.0) sec Sodium (137-145) mmol/L BUN (9-20) mg/dL Creatinine (0.66-1.25) mg/dL Glucose (74-99) mg/dL POC Glucose (mg/dL) 195 H 166 H 186 H (70-110) mg/dL 03/17/25 03/17/25 03/17/25 Range/Units 00:01 06:28 06:49 APTT 50.5 H (22.0-30.0) sec Sodium 136 L (137-145) mmol/L BUN 34 H (9-20) mg/dL Creatinine 1.64 H (0.66-1.25) mg/dL Glucose 130 H (74-99) mg/dL POC Glucose (mg/dL) 139 H (70-110) mg/dL Assessment and Plan Plan: Assessment: 1. Acute kidney injury secondary to ATN secondary to cardiorenal syndrome. Creatinine stable in the range of 1.6-1.8 this admission. No hydronephrosis noted on imaging. 2. Cardiomyopathy ejection fraction of 20 to 25% with mild to moderate mitral and tricuspid regurgitation. 3. Severe pulmonary hypertension. 4. Volume overload. 5. A-fib with RVR s/p amiodarone drip. Now on oral meds. 6. Chronic kidney disease stage IIIa with creatinine 1.49 dated December 24, 2024. Plan: Hep-Lock IV fluids due to hypervolemia. Resume tonight. Now on oral Bumex. Maintain SGLT2 inhibitor. Held today but will resume tomorrow. Also on Entresto and Aldactone. Avoid nephrotoxins. Follow-up UA. ISAAC tomorrow.
[2025-03-17 11:01] LABS: Glucose,Whole Blood 234 mg/dL (70-110)
[2025-03-17] MEDS: AMIODARONE 200 MG TAB PO SCH (11:29)
[2025-03-17] MEDS: APIXABAN 5 MG TAB PO SCH (11:29)
--- NOTE | 2025-03-17 12:12 | P.PN ---
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 The patient stated t hat he underwent a heart catheterization about a year ago as part of the workup for cardiomyopathy and the heart catheterization came to be unremarkable. This is all by history. He presented to the hospital with 6 weeks progressive exertional dyspnea associated with bilateral lower extremities edema and weight gain of 40 pounds. He stated that he was on Lasix as an outpatient and he has been compliant with it and compliant with low-sodium diet. No symptoms of chest pain or chest discomfort or dizziness or lightheadedness or any feeling of heart racing or fluttering or presyncope or syncope. He underwent further workup including an EKG showing overall ectopic atrial rhythm. The troponin came to be mildly elevated. Chest x-ray showed evidence of heart failure/pulmonary vascular congestions. NT proBNP is at 4000. The creatinine came to be slightly elevated. He was started on Lasix IV after he was diagnosed with heart failure and he has been diuresing well. The physical examination is remarkable for regular rhythm with a systolic murmur at the right and left upper sternal border with clear breathing sounds bilaterally and severe bilateral lower EXTR edema noted 03/15/2025 BP 123/73, heart rate 82 bpm BUN 32, creatinine 1.6, hemoglobin 13 Patient still appears volume overloaded, diuresing on IV diuretics however seems to be still suboptimal. 03/16 Patient seen and examined. Blood pressure 127/88, heart rate 88, pulse ox 92% on room air. Patient is on a heparin drip. Discussed option of undergoing cardiac catheterization with patient is agreeable to which we will schedule for tomorrow with Dr. Kat. Due to atrial fibrillation, amiodarone drip without bolus started. Echocardiogram reveals EF of 20 to 25%, mild to moderate MR, severe pulmonary hypertension, mild to moderate TR. Small pericardial effusion. 03/17 Patient seen and examined. Today, he underwent cardiac catheterization with Dr. Kat which revealed normal coronary arteries and normal left-sided filling pressures. Dr. Silva discussed with the patient plan for ISAAC and cardioversion. He remains in atrial flutter with rate control. The physical examination is remarkable for elevated JVP, irregular rhythm with a systolic murmur at the right and left upper sternal border with mild crackles bilaterally and severe 23 bilateral lower extremity edema noted with chronic skin changes Assessment HFrEF with evidence of right more than left failure History of cardiomyopathy, nonischemic New onset typical atrial flutter, currently rate controlled Multiple comorbid conditions including diabetes and hypertension and dyslipidemia and overweight Chronic kidney disease Severe pulmonary hypertension Echo showed an EF of 20 to 25%, moderate MR, severe pulm hypertension, moderate TR, small pericardial effusion Plan Continue Entresto half dose and Aldactone 12.5 mg today Continue aspirin and atorvastatin 40 mg daily Farxiga 10 milligrams daily Continue IV heparin drip for atrial flutter Transition IV amiodarone to oral 200 mg twice daily Schedule patient for ISAAC and cardioversion tomorrow with Dr. Kat N.p.o. after midnight Obtain medical records from [facility] Nurse practitioner note has been reviewed, I agree with documented findings and plan of care. Patient was seen and examined. Objective - Vital Signs Vital signs: Vital Signs Temp 97.6 F 03/17/25 08:34 Pulse 93 03/17/25 11:51 Resp 18 03/17/25 11:51 BP 103/75 03/17/25 11:51 Pulse Ox 95 03/17/25 11:51 FiO2 Intake & Output 03/16/25 03/17/25 03/17/25 18:59 06:59 18:59 Intake Total 739.862 260 890 Output Total 900 Balance -160.138 260 890 Intake: IV 10 20 160 Invasive Line 2 10 20 10 Intake, IV Titration 249.862 250 Amount Amiodarone 450 mg In 250 Dextrose 5% in Water 250 ml @ 0.5 MG/MIN 16.667 mls/hr IV .Q15H [facility] Rx#: [id number] Heparin Sod,Pork in 0.45% 249.862 NaCl 25,000 unit In 0.45 % NaCl 1 250ml.bag @ 7. 3475 UNITS/KG/HR 10 mls/ hr IV .Q24H [facility] Rx#: [id number] Oral 480 240 480 Output: Urine 900 Other: Voiding Method Urinal Urinal Urinal # Voids 1 - Labs CBC & Chem 7: 03/15/25 06:08 05/21/25 06:49 Labs: Abnormal Lab Results - Last 24 Hours (Table) 03/16/25 03/16/25 03/17/25 Range/Units 16:44 20:00 00:01 APTT 50.5 H (22.0-30.0) sec Sodium (137-145) mmol/L BUN (9-20) mg/dL Creatinine (0.66-1.25) mg/dL Glucose (74-99) mg/dL POC Glucose (mg/dL) 166 H 186 H (70-110) mg/dL 03/17/25 03/17/25 03/17/25 Range/Units 06:28 06:49 10:59 APTT (22.0-30.0) sec Sodium 136 L (137-145) mmol/L BUN 34 H (9-20) mg/dL Creatinine 1.64 H (0.66-1.25) mg/dL Glucose 130 H (74-99) mg/dL POC Glucose (mg/dL) 139 H 234 H (70-110) mg/dL
--- NOTE | 2025-03-17 13:45 | P.PN ---
Subjective Progress Note Date: 03/17/25 Principal diagnosis: Acute systolic congestive heart failure and underlying COPD This is a 64-year-old male patient presented to the hospital with worsening shortness of breath. The dyspnea is subacute onset progressively getting worse over the past 6 weeks. The patient has noted exertional dyspnea and orthopnea. Denied having any chest pain. No palpitations. He also had some increased swelling lower extremities and weight gain in order of 30 pounds over the past 6 months. In the emergency, the patient was afebrile. Normotensive, room air pulse ox was 96% and the EKG showed a ectopic atrial tachycardia with a plan to be afebrile and the bundle branch block pattern/RBBB and old Q waves involving the anterior leads. The blood work showed a white cell count of 8.5, hemoglobin 13.7 and a platelet count of 321. Normal coagulation profile. BUN 32 with a creatinine 1.8. Normal electrolytes. Troponins were elevated 0.07 and 0.08 respectively and the proBNP level was 4310. Blood sugar was at 150. Chest x-ray was noted and it showed moderate/marked cardiomegaly with pulmonary vascular congestion. No airspace disease. No consolidation. Past medical history includes COPD, hypertension, hyperlipidemia, diabetes mellitus. Patient's previous creatinine from November 2024 was 1.45 and had a GFR of 48 consistent with stage IIIa chronic kidney disease. Creatinine is higher compared to the baseline. Previous On 03/14/2025, the patient is being seen for a follow-up. The patient is feeling well. Continues to have lower extremity edema. Echocardiogram was performed this morning and results are still pending for now. Meanwhile, the patient is still on IV Lasix. No chest pain. No dyspnea at rest. The blood work from today shows a white cell count of 8.4 with a hemoglobin of 14 and a platelet count of 293. INR is at 1.3 with a PT of 13.5. Awaiting follow-up electrolytes. Creatinine from yesterday was at 1.8. Fluid balance is -910 cc over the past 24 hours. The patient is on Lasix 40 mg IV every 8 hours. The patient remains on IV heparin. The patient remains on Lantus insulin. Remains on aspirin and he is also on Symbicort 2 puffs twice a day and DuoNeb neb regiment [id number]. He is a former smoker. He also has obstructive sleep apnea, not utilized CPAP therapy Seen today on 03/15/2025, patient is steadily improving, echocardiogram showed severe LV dysfunction patient is breathing much better today compared to how he felt when he came in. He is still in negative fluid balance, continues on Lasix 40 mg IV push every 8 hours patient is again steadily improving he is a former smoker with known history of mild COPD but is not active. In addition he has obstructive sleep apnea. Patient was seen today on 03/16/2025, patient is improving clinically, feeling much better, breathing a lot easier, patient was admitted mostly with severe LV dysfunction and congestive heart failure. Remains in negative fluid balance remains on diuretics, patient is being followed by cardiology he does have some minimal underlying COPD but interactive. Basic metabolic profile is normal BUN is 32 creatinine 1.77, remains high patient was supposed to have cardiac catheterization which is now presently on hold. Echocardiogram done yesterday showed severe LV dysfunction with ejection fraction of 20 to 25% patient has severe pulmonary hypertension mild to moderate mitral regurgitation and mild to moderate tricuspid regurgitation small pericardial effusion. Patient was seen today on 03/17/2025, patient is feeling better, breathing easier. Remains on diuretics, his cardiac catheterization was done yesterday, he was found to have normal coronaries, normal left-sided filling pressures, patient is being considered for ISAAC/cardioversion. In the meantime remains on amiodarone. Electrolytes are normal BUN is 34 creatinine 1.64, better today compared to yesterday of creatinine 1.77. Patient remains on Bumex 1 mg twice d aily, he is also on Aldactone 12.5 mg daily. In addition he is also on Entresto 24/26 mg tablet 0.5 twice daily. Objective - Vital Signs Vital signs: Vital Signs Temp 97.6 F 03/17/25 08:34 Pulse 93 03/17/25 11:51 Resp 18 03/17/25 11:51 BP 103/75 03/17/25 11:51 Pulse Ox 95 03/17/25 11:51 FiO2 Intake & Output 03/16/25 03/17/25 03/17/25 18:59 06:59 18:59 Intake Total 739.862 260 900 Output Total 900 Balance -160.138 260 900 Intake: IV 10 20 170 Invasive Line 2 10 20 20 Intake, IV Titration 249.862 250 Amount Amiodarone 450 mg In 250 Dextrose 5% in Water 250 ml @ 0.5 MG/MIN 16.667 mls/hr IV .Q15H [facility] Rx#: [id number] Heparin Sod,Pork in 0.45% 249.862 NaCl 25,000 unit In 0.45 % NaCl 1 250ml.bag @ 7. 3475 UNITS/KG/HR 10 mls/ hr IV .Q24H [facility] Rx#: [id number] Oral 480 240 480 Output: Urine 900 Other: Voiding Method Urinal Urinal Urinal # Voids 1 1 - Exam GENERAL: 64-year-old white male in no distress, obese. On room air HEENT: Pupils are round and equally reacting to light. EOMI. No scleral icterus. No conjunctival pallor. Normocephalic, atraumatic. No pharyngeal erythema. No thyromegaly. CARDIOVASCULAR: S1 and S2 present. No murmurs, rubs, or gallops. PULMONARY: Good air entry bilaterally, clear bilaterally today much improved compared to the last few days ABDOMEN: Soft, nontender, nondistended, normoactive bowel sounds. No palpable organomegaly. MUSCULOSKELETAL: No joint swelling or deformity. EXTREMITIES: No cyanosis, clubbing, 3+ pitting edema of lower extremities bilaterally, positive cellulitis bilaterally. NEUROLOGICAL: Alert oriented x 3 no focal deficit SKIN: 3+ bipedal edema with chronic venous stasis changes - Labs CBC & Chem 7: 03/15/25 06:08 03/17/25 06:49 Labs: Abnormal Lab Results - Last 24 Hours (Table) 03/16/25 03/16/25 03/17/25 Range/Units 16:44 20:00 00:01 APTT 50.5 H (22.0-30.0) sec Sodium (137-145) mmol/L BUN (9-20) mg/dL Creatinine (0.66-1.25) mg/dL Glucose (74-99) mg/dL POC Glucose (mg/dL) 166 H 186 H (70-110) mg/dL 03/17/25 03/17/25 03/17/25 Range/Units 06:28 06:49 10:59 APTT (22.0-30.0) sec Sodium 136 L (137-145) mmol/L BUN 34 H (9-20) mg/dL Creatinine 1.64 H (0.66-1.25) mg/dL Glucose 130 H (74-99) mg/dL POC Glucose (mg/dL) 139 H 234 H (70-110) mg/dL Assessment and Plan Assessment: Impression: Acute on chronic systolic congestive heart failure Underlying COPD, relatively inactive Nonischemic cardiomyopathy and severe LV dysfunction Acute on chronic kidney disease patient has usually stage IIIa chronic kidney disease Benign essential hypertension Morbid obesity BMI 40.7 Obstructive sleep apnea syndrome noncompliant Former smoker Recommendation: Cardiac catheterization report was noted patient was found to have normal coronaries Patient is being considered for ISAAC/cardioversion Continue diuretics/Bumex and Aldactone Continue strict I's and O's Continue bronchodilators including DuoNeb and Symbicort Will continue to follow Time with Patient: Less than 30
[2025-03-17] MEDS: BENZOCAINE SPRAY 1 EACH MM SCH (16:06)
[2025-03-17] MEDS: BUMETANIDE 1 MG TAB PO SCH (16:08)
[2025-03-17 16:29] LABS: Glucose,Whole Blood 140 mg/dL (70-110)
[2025-03-17 20:23] LABS: Glucose,Whole Blood 199 mg/dL (70-110)
[2025-03-18 06:23] LABS: Glucose,Whole Blood 123 mg/dL (70-110)
[2025-03-18 07:44] LABS: African American GFR (CKD) 41 (>60 ml/min/1.73 sqM); Anion Gap 10 mmol/L; Blood Urea Nitrogen 36 mg/dL (9-20); Calcium 9.3 mg/dL (8.4-10.2); Carbon Dioxide 28 mmol/L (22-30); Chloride 100 mmol/L (98-107); Glucose 103 mg/dL (74-99); Non-African American GFR(CKD) 36 (>60 ml/min/1.73 sqM); Potassium 3.8 mmol/L (3.5-5.1); Sodium 138 mmol/L (137-145)
[2025-03-18] MEDS: ASPIRIN 81 MG PO SCH (08:41)
--- NOTE | 2025-03-18 09:51 | P.PN ---
Subjective Progress Note Date: 03/17/25 Progress note dated 03/17/2025 patient is a 64-year-old gentleman with past medical history significant for CHF, COPD, diabetes presents the ER because of worsening shortness of breath for 6 weeks. Patient stated that his loan expeditor is from [place] and last time he saw a doctor was 3 months ago. Patient stated for the last 6 weeks he has been noticing that he has been short of breath on exertion. Shortness of breath has progressively worsened and patient unable to to walk a few steps before getting winded. Patient also complaining of orthopnea. Patient denies any chest pain. There is no complaint of palpitation. Patient is complaining of swelling of lower extremities. Patient stated that he has gained 30 pounds in the last 6 months. Patient admits to taking Lasix at home but has not been able to refill his medication recently. There is no complaint of fever or chills. Patient denies any nausea, vomiting or abdominal pain. Because of this shortness of b reath and orthopnea, patient came to the ER Initial lab work done in the ER showed WBC 8.59, hemoglobin 13.7, platelet count 321, sodium 138, potassium 4.5, BUN 32, creatinine 1.83, glucose 160, troponin 0.060, proBNP 4310 EKG done in the ER showed heart rate of 95, no ST segment elevation or depres lena seen, no T-wave inversions seen. Chest x-ray done in the ER showed cardiomegaly and mild pulmonary vascular congestion Patient admitted to internal medicine service 03/14. Patient seen examined. Patient sitting upright in the chair. Still has swelling of lower extremities. Denies any shortness of breath at rest. Labs reviewed this morning showed WBC 8.48, hemoglobin 14, platelet count 293 03/15. Patient seen and examined. Still has swelling of lower extremities. Patient weight remains same, gets short of breath on exertion. Labs reviewed showing sodium 136, potassium 3.6, BUN 32, creatinine 1.68, glucose 242. 2D echo done showed impaired LV function with EF between 2025%, mild to moderate mitral regurg, severe pulmonary hypertension, mild to moderate tricuspid regurg 03/16. Patient seen and examined. Cardiology added Entresto and Aldactone on 03/15. EKG overnight showed patient to be in atrial flutter, started on amiodarone 03/17. Patient seen and examined. Patient underwent cardiac cath showing on 03/16 showing normal coronaries. Still having swelling of lower extremities. Gets short of breath on exertion REVIEW OF SYSTEMS: CONSTITUTIONAL: No fever, no malaise,. CARDIOVASCULAR: No chest pain, no palpitations, no syncope. PULMONARY: As mentioned above GASTROINTESTINAL: No diarrhea, no nausea, no vomiting, no abdominal pain. NEUROLOGICAL: No headaches, no weakness, PHYSICAL EXAMINATION: GENERAL: The patient is alert and oriented x3, not in any acute distress. Well developed, well n ill looking HEENT: Pupils are round and equally reacting to light. EOMI. No scleral icterus. No conjunctival pallor. Normocephalic, atraumatic. No pharyngeal erythema. No thyromegaly. CARDIOVASCULAR: S1 and S2 present. No murmurs, rubs, or gallops. PULMONARY: Good air entry bilaterally, bilateral crackles audible. ABDOMEN: Soft, nontender, nondistended, normoactive bowel sounds. No palpable organomegaly. MUSCULOSKELETAL: No joint swelling or deformity. EXTREMITIES: No cyanosis, clubbing, 3+ pitting edema of lower extremities bilaterally NEUROLOGICAL: Gross neurological examination did not reveal any focal deficits. SKIN: No rashes. Assessment and plan Acute on chronic systolic CHF Mild to moderate mitral regurg Atrial flutter Severe pulmonary hypertension Elevated troponin Acute kidney injury Acute respiratory distress History of COPD History of hypertension History of hyperlipidemia History of diabetes mellitus Monitor vital signs Monitor CBC Monitor CMP Continue telemetry monitoring Strict I's and O's, daily weights Continue oral Bumex Continue pharmacy dose heparin Continue amiodarone drip Continue Entresto, Aldactone Continue breathing treatments Postcardiac cath showing normal coronaries 2D echo done showed impaired LV function with EF between 2025%, mild to moderate mitral regurg, severe pulmonary hypertension, mild to moderate tricuspid regurg Continue blood glucose monitoring continue sliding scale insulin Lantus 20 units twice a day Cardiology following, their notes and recommendations reviewed from 03/17, planning ISAAC with cardioversion on 03/18 Pulmonology following, recommendations reviewed from 03/17 Nephrology following, recommendations reviewed from 03/17 Labs and medication were reviewed.. Continue same treatment. Continue with symptomatic treatment. Resume home medication. Monitor labs and vitals. DVT and GI prophylaxis. Further recommendations as per clinical course of the patient Dictation was produced using dragon dictation software. please excuse any grammatical, word or spelling errors. Objective - Vital Signs Vital signs: Vital Signs Temp 97.3 F L 03/17/25 20:00 Pulse 88 03/18/25 09:37 Resp 16 03/18/25 08:39 BP 114/75 03/18/25 08:39 Pulse Ox 96 03/18/25 08:39 FiO2 Intake & Output 03/17/25 03/18/25 03/18/25 18:59 06:59 18:59 Intake Total 1380 20 Output Total 675 Balance 1380 20 -675 Weight 135.9 kg Intake: IV 170 20 Invasive Line 2 20 20 Intake, IV Titration 250 Amount Amiodarone 450 mg In 250 Dextrose 5% in Water 250 ml @ 0.5 MG/MIN 16.667 mls/hr IV .Q15H [facility] Rx#: [id number] Oral 960 Output: Urine 675 Other: Voiding Method Urinal Urinal # Voids 1 2 - Labs CBC & Chem 7: 03/15/25 06:08 03/18/25 05:59 Labs: Abnormal Lab Results - Last 24 Hours (Table) 03/17/25 03/17/25 03/17/25 Range/Units 10:59 16:26 20:22 BUN (9-20) mg/dL Creatinine (0.66-1.25) mg/dL Glucose (74-99) mg/dL POC Glucose (mg/dL) 234 H 140 H 199 H (70-110) mg/dL 03/18/25 03/18/25 Range/Units 05:59 06:21 BUN 36 H (9-20) mg/dL Creatinine 1.91 H (0.66-1.25) mg/dL Glucose 103 H (74-99) mg/dL POC Glucose (mg/dL) 123 H (70-110) mg/dL
--- NOTE | 2025-03-18 10:25 | P.PN ---
Subjective Patient is seen in follow-up for acute kidney injury on chronic kidney disease. Underwent cardiac catheterization March 17, 2025 which was negative. Denies chest pain or shortness of breath. Has been voiding. Scheduled for ISAAC today. Vital signs are stable. General: No acute distress. HEENT: Head exam is unremarkable. LUNGS: No audible rhonchi or wheezes. HEART: Rate and Rhythm are regular. ABDOMEN: Obese, nontender. EXTREMITITES: 1+ edema. Chronic changes noted. Objective - Vital Signs Vital signs: Vital Signs Temp 97.3 F L 03/17/25 20:00 Pulse 88 03/18/25 09:37 Resp 16 03/18/25 08:39 BP 114/75 03/18/25 08:39 Pulse Ox 96 03/18/25 08:39 FiO2 Intake & Output 03/17/25 03/18/25 03/18/25 18:59 06:59 18:59 Intake Total 1380 20 Output Total 675 Balance 1380 20 -675 Weight 135.9 kg Intake: IV 170 20 Invasive Line 2 20 20 Intake, IV Titration 250 Amount Amiodarone 450 mg In 250 Dextrose 5% in Water 250 ml @ 0.5 MG/MIN 16.667 mls/hr IV .Q15H [facility] Rx#: [id number] Oral 960 Output: Urine 675 Other: Voiding Method Urinal Urinal # Voids 1 2 - Labs CBC & Chem 7: 03/15/25 06:08 03/18/25 05:59 Labs: Abnormal Lab Results - Last 24 Hours (Table) 03/17/25 03/17/25 03/17/25 Range/Units 10:59 16:26 20:22 BUN (9-20) mg/dL Creatinine (0.66-1.25) mg/dL Glucose (74-99) mg/dL POC Glucose (mg/dL) 234 H 140 H 199 H (70-110) mg/dL 03/18/25 03/18/25 Range/Units 05:59 06:21 BUN 36 H (9-20) mg/dL Creatinine 1.91 H (0.66-1.25) mg/dL Glucose 103 H (74-99) mg/dL POC Glucose (mg/dL) 123 H (70-110) mg/dL Assessment and Plan Plan: Assessment: 1. Acute kidney injury secondary to ATN secondary to cardiorenal syndrome. Creatinine stable in the range of 1.6-1.8 this admission. No hydronephrosis noted on imaging. Renal function worse today. Received IV contrast March 17, 2025. 2. Cardiomyopathy ejection fraction of 20 to 25% with mild to moderate mitral and tricuspid regurgitation. 3. Severe pulmonary hypertension. 4. Volume overload. Better with diuresis. 5. A-fib with RVR s/p amiodarone drip. Now on oral meds. 6. Chronic kidney disease stage IIIa with creatinine 1.49 dated December 24, 2024. Plan: Maintain Bumex. Maintain SGLT2 inhibitor. Also on Entresto and Aldactone. Avoid nephrotoxins. Follow-up UA. ISAAC today. Monitor for contrast induced AC.
[2025-03-18 11:06] LABS: Appearance,Urine Clear (Clear); Bilirubin,Urine Negative (Negative); Blood,Urine Trace (Negative); Color,Urine Yellow; Glucose,Urine (UA) Trace (Negative); Hyaline Casts,Urine 7 /lpf (0-2); Ketones,Urine Negative (Negative); Leukocyte Esterase,Urine Negative (Negative); Mucus,Urine Rare /hpf; Nitrite,Urine Negative (Negative); Protein,Urine 2+ (Negative); RBC,Urine 4 /hpf (0-5); Specific Gravity,Urine 1.013 (1.001-1.035); WBC,Urine 3 /hpf (0-5)
[2025-03-18 11:24] LABS: Glucose,Whole Blood 115 mg/dL (70-110)
[2025-03-18 12:16] VITALS: BP 143/86
--- NOTE | 2025-03-18 12:33 | P.PN ---
Subjective Progress Note Date: 03/18/25 Principal diagnosis: Acute systolic congestive heart failure and underlying COPD This is a 64-year-old male patient presented to the hospital with worsening shortness of breath. The dyspnea is subacute onset progressively getting worse over the past 6 weeks. The patient has noted exertional dyspnea and orthopnea. Denied having any chest pain. No palpitations. He also had some increased swelling lower extremities and weight gain in order of 30 pounds over the past 6 months. In the emergency, the patient was afebrile. Normotensive, room air pulse ox was 96% and the EKG showed a ectopic atrial tachycardia with a plan to be afebrile and the bundle branch block pattern/RBBB and old Q waves involving the anterior leads. The blood work showed a white cell count of 8.5, hemoglobin 13.7 and a platelet count of 321. Normal coagulation profile. BUN 32 with a creatinine 1.8. Normal electrolytes. Troponins were elevated 0.07 and 0.08 respectively and the proBNP level was 4310. Blood sugar was at 150. Chest x-ray was noted and it showed moderate/marked cardiomegaly with pulmonary vascular congestion. No airspace disease. No consolidation. Past medical history includes COPD, hypertension, hyperlipidemia, diabetes mellitus. Patient's previous creatinine from November 2024 was 1.45 and had a GFR of 48 consistent with stage IIIa chronic kidney disease. Creatinine is higher compared to the baseline. Previous On 03/14/2025, the patient is being seen for a follow-up. The patient is feeling well. Continues to have lower extremity edema. Echocardiogram was performed this morning and results are still pending for now. Meanwhile, the patient is still on IV Lasix. No chest pain. No dyspnea at rest. The blood work from today shows a white cell count of 8.4 with a hemoglobin of 14 and a platelet count of 293. INR is at 1.3 with a PT of 13.5. Awaiting follow-up electrolytes. Creatinine from yesterday was at 1.8. Fluid balance is -910 cc over the past 24 hours. The patient is on Lasix 40 mg IV every 8 hours. The patient remains on IV heparin. The patient remains on Lantus insulin. Remains on aspirin and he is also on Symbicort 2 puffs twice a day and DuoNeb neb regiment [id number]. He is a former smoker. He also has obstructive sleep apnea, not utilized CPAP therapy Seen today on 03/15/2025, patient is steadily improving, echocardiogram showed severe LV dysfunction patient is breathing much better today compared to how he felt when he came in. He is still in negative fluid balance, continues on Lasix 40 mg IV push every 8 hours patient is again steadily improving he is a former smoker with known history of mild COPD but is not active. In addition he has obstructive sleep apnea. Patient was seen today on 03/16/2025, patient is improving clinically, feeling much better, breathing a lot easier, patient was admitted mostly with severe LV dysfunction and congestive heart failure. Remains in negative fluid balance remains on diuretics, patient is being followed by cardiology he does have some minimal underlying COPD but interactive. Basic metabolic profile is normal BUN is 32 creatinine 1.77, remains high patient was supposed to have cardiac catheterization which is now presently on hold. Echocardiogram done yesterday showed severe LV dysfunction with ejection fraction of 20 to 25% patient has severe pulmonary hypertension mild to moderate mitral regurgitation and mild to moderate tricuspid regurgitation small pericardial effusion. Patient was seen today on 03/17/2025, patient is feeling better, breathing easier. Remains on diuretics, his cardiac catheterization was done yesterday, he was found to have normal coronaries, normal left-sided filling pressures, patient is being considered for ISAAC/cardioversion. In the meantime remains on amiodarone. Electrolytes are normal BUN is 34 creatinine 1.64, better today compared to yesterday of creatinine 1.77. Patient remains on Bumex 1 mg twice d aily, he is also on Aldactone 12.5 mg daily. In addition he is also on Entresto 24/26 mg tablet 0.5 twice daily. Patient was seen today on 03/18/2025, continues to do well, improving with diuresis, patient is supposed to have cardioversion done today. This is supposedly scheduled at noon time today. In the meantime the patient remains on diuretics, he is now on room air with O2 sats of 98%, he is hemodynamically stable. Patient did have normal cardiac catheterization noted, but he has severe cardiomyopathy and LV dysfunction. In addition he has chronic atrial fibrillation and he will have ISAAC/cardioversion today. Objective - Vital Signs Vital signs: Vital Signs Temp 97.3 F L 03/17/25 20:00 Pulse 97 03/18/25 12:00 Resp 18 03/18/25 12:00 BP 143/86 03/18/25 12:00 Pulse Ox 98 03/18/25 12:00 FiO2 Intake & Output 03/17/25 03/18/25 03/18/25 18:59 06:59 18:59 Intake Total 1380 20 10 Output Total 675 Balance 1380 20 -665 Weight 135.9 kg Intake: IV 170 20 10 Invasive Line 2 20 20 10 Intake, IV Titration 250 Amount Amiodarone 450 mg In 250 Dextrose 5% in Water 250 ml @ 0.5 MG/MIN 16.667 mls/hr IV .Q15H [facility] Rx#: [id number] Oral 960 Output: Urine 675 Other: Voiding Method Urinal Urinal Urinal # Voids 1 2 - Exam GENERAL: 64-year-old white male in no distress, obese. On room air HEENT: Pupils are round and equally reacting to light. EOMI. No scleral icterus. No conjunctival pallor. Normocephalic, atraumatic. No pharyngeal erythema. No thyromegaly. CARDIOVASCULAR: S1 and S2 present. No murmurs, rubs, or gallops. PULMONARY: Good air entry bilaterally, clear bilaterally today much improved compared to the last few days ABDOMEN: Soft, nontender, nondistended, normoactive bowel sounds. No palpable organomegaly. MUSCULOSKELETAL: No joint swelling or deformity. EXTREMITIES: No cyanosis, clubbing, 3+ pitting edema of lower extremities bilaterally, positive cellulitis bilaterally. NEUROLOGICAL: Alert oriented x 3 no focal deficit SKIN: 3+ bipedal edema with chronic venous stasis changes - Labs CBC & Chem 7: 03/15/25 06:08 03/18/25 05:59 Labs: Abnormal Lab Results - Last 24 Hours (Table) 03/17/25 03/17/25 03/18/25 Range/Units 16:26 20:22 05:59 BUN 36 H (9-20) mg/dL Creatinine 1.91 H (0.66-1.25) mg/dL Glucose 103 H (74-99) mg/dL POC Glucose (mg/dL) 140 H 199 H (70-110) mg/dL Urine Protein (Negative) Urine Glucose (UA) (Negative) Urine Blood (Negative) Hyaline Casts (0-2) /lpf Urine Mucus (None) /hpf 03/18/25 03/18/25 03/18/25 Range/Units 06:21 10:55 11:23 BUN (9-20) mg/dL Creatinine (0.66-1.25) mg/dL Glucose (74-99) mg/dL POC Glucose (mg/dL) 123 H 115 H (70-110) mg/dL Urine Protein 2+ H (Negative) Urine Glucose (UA) Trace H (Negative) Urine Blood Trace H (Negative) Hyaline Casts 7 H (0-2) /lpf Urine Mucus Rare H (None) /hpf Assessment and Plan Assessment: Impression: Acute on chronic systolic congestive heart failure Underlying COPD, relatively inactive Nonischemic cardiomyopathy and severe LV dysfunction, patient had no coronary occlusive disease based on cardiac catheterization Acute on chronic kidney disease patient has usually stage IIIa chronic kidney disease Benign essential hypertension Morbid obesity BMI 40.7 Obstructive sleep apnea syndrome noncompliant Former smoker Recommendation: C Patient is scheduled for ISAAC/cardioversion today Continue diuretics/Bumex and Aldactone Continue strict I's and O's Continue bronchodilators including DuoNeb and Symbicort Consider follow-up chest x-ray in the next 24 hours Overall prognosis remains guarded considering his severe cardiomyopathy and multiple comorbidities. Will continue to follow Time with Patient: Less than 30
[2025-03-18] MEDS: IV FLUID CONTINUATION 500 ML IV ONE (12:45)
[2025-03-18 12:59] VITALS: PULSE 95; RESP 16; TEMP 97.6
[2025-03-18] MEDS: BENZOCAINE SPRAY 1 EACH MUCOUS MEM STA (13:05)
[2025-03-18] MEDS: BENZOCAINE SPRAY 1 EACH TOPICAL ONE (13:05)
--- NOTE | 2025-03-18 13:52 | P.PN ---
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 The patient stated t hat he underwent a heart catheterization about a year ago as part of the workup for cardiomyopathy and the heart catheterization came to be unremarkable. This is all by history. He presented to the hospital with 6 weeks progressive exertional dyspnea associated with bilateral lower extremities edema and weight gain of 40 pounds. He stated that he was on Lasix as an outpatient and he has been compliant with it and compliant with low-sodium diet. No symptoms of chest pain or chest discomfort or dizziness or lightheadedness or any feeling of heart racing or fluttering or presyncope or syncope. He underwent further workup including an EKG showing overall ectopic atrial rhythm. The troponin came to be mildly elevated. Chest x-ray showed evidence of heart failure/pulmonary vascular congestions. NT proBNP is at 4000. The creatinine came to be slightly elevated. He was started on Lasix IV after he was diagnosed with heart failure and he has been diuresing well. The physical examination is remarkable for regular rhythm with a systolic murmur at the right and left upper sternal border with clear breathing sounds bilaterally and severe bilateral lower EXTR edema noted 03/15/2025 BP 123/73, heart rate 82 bpm BUN 32, creatinine 1.6, hemoglobin 13 Patient still appears volume overloaded, diuresing on IV diuretics however seems to be still suboptimal. 03/16 Patient seen and examined. Blood pressure 127/88, heart rate 88, pulse ox 92% on room air. Patient is on a heparin drip. Discussed option of undergoing cardiac catheterization with patient is agreeable to which we will schedule for tomorrow with Dr. Kat. Due to atrial fibrillation, amiodarone drip without bolus started. Echocardiogram reveals EF of 20 to 25%, mild to moderate MR, severe pulmonary hypertension, mild to moderate TR. Small pericardial effusion. 03/17 Patient seen and examined. Today, he underwent cardiac catheterization with Dr. Kat which revealed normal coronary arteries and normal left-sided filling pressures. Dr. Silva discussed with the patient plan for ISAAC and cardioversion. He remains in atrial flutter with rate control. 03/18 Patient seen and examined. He is scheduled for ISAAC and cardioversion today with Dr. Kat. Unfortunately, Dr. Kat was unable to perform this today due to s cheduling difficulties and will be rescheduled for tomorrow. Yesterday, amiodarone drip was discontinued and patient started on oral amiodarone and transition from heparin drip to oral Eliquis. Heart rate is in the 80s and 90s, blood pressure 143/86, pulse ox 98% on room air. The physical examination is remarkable for elevated JVP, irregular rhythm with a systolic murmur at the right and left upper sternal border with mild crackles bilaterally and severe 23 bilateral lower extremity edema noted with chronic skin changes Assessment HFrEF with evidence of right more than left failure History of cardiomyopathy, nonischemic New onset typical atrial flutter, currently rate controlled Multiple comorbid conditions including diabetes and hypertension and dyslipidemia and overweight Chronic kidney disease Severe pulmonary hypertension Echo showed an EF of 20 to 25%, moderate MR, severe pulm hypertension, moderate TR, small pericardial effusion Plan Continue Entresto half dose and Aldactone 12.5 mg today Continue aspirin and atorvastatin 40 mg daily Farxiga 10 milligrams daily Continue Eliquis 5 mg twice daily Continue amiodarone oral 200 mg twice daily Schedule patient for ISAAC and cardioversion tomorrow with Dr. Kat N.p.o. after midnight Obtain medical records from [facility] Nurse practitioner note has been reviewed, I agree with documented findings and plan of care. Patient was seen and examined. Objective - Vital Signs Vital signs: Vital Signs Temp 97.3 F L 03/17/25 20:00 Pulse 90 03/18/25 08:39 Resp 16 03/18/25 08:39 BP 114/75 03/18/25 08:39 Pulse Ox 96 03/18/25 08:39 FiO2 Intake & Output 03/17/25 03/18/25 03/18/25 18:59 06:59 18:59 Intake Total 1380 20 Output Total 675 Balance 1380 20 -675 Weight 135.9 kg Intake: IV 170 20 Invasive Line 2 20 20 Intake, IV Titration 250 Amount Amiodarone 450 mg In 250 Dextrose 5% in Water 250 ml @ 0.5 MG/MIN 16.667 mls/hr IV .Q15H [facility] Rx#: [id number] Oral 960 Output: Urine 675 Other: Voiding Method Urinal Urinal # Voids 1 2 - Labs CBC & Chem 7: 03/15/25 06:08 03/18/25 05:59 Labs: Abnormal Lab Results - Last 24 Hours (Table) 03/17/25 03/17/25 03/17/25 Range/Units 10:59 16:26 20:22 BUN (9-20) mg/dL Creatinine (0.66-1.25) mg/dL Glucose (74-99) mg/dL POC Glucose (mg/dL) 234 H 140 H 199 H (70-110) mg/dL 03/18/25 03/18/25 Range/Units 05:59 06:21 BUN 36 H (9-20) mg/dL Creatinine 1.91 H (0.66-1.25) mg/dL Glucose 103 H (74-99) mg/dL POC Glucose (mg/dL) 123 H (70-110) mg/dL
--- NOTE | 2025-03-18 14:04 | P.PN ---
Subjective Progress Note Date: 03/18/25 Progress note dated 03/18/2025 patient is a 64-year-old gentleman with past medical history significant for CHF, COPD, diabetes presents the ER because of worsening shortness of breath for 6 weeks. 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 Patient stated for the last 6 weeks he has been noticing that he has been short of breath on exertion. Shortness of breath has progressively worsened and patient unable to to walk a few steps before getting winded. Patient also complaining of orthopnea. Patient denies any chest pain. There is no complaint of palpitation. Patient is complaining of swelling of lower extremities. Patient stated that he has gained 30 pounds in the last 6 months. Patient admits to taking Lasix at home but has not been able to refill his medication recently. There is no complaint of fever or chills. Patient denies any nausea, vomiting or abdominal pain. Because of this shortness of b reath and orthopnea, patient came to the ER Initial lab work done in the ER showed WBC 8.59, hemoglobin 13.7, platelet count 321, sodium 138, potassium 4.5, BUN 32, creatinine 1.83, glucose 160, troponin 0.060, proBNP 4310 EKG done in the ER showed heart rate of 95, no ST segment elevation or depres lena seen, no T-wave inversions seen. Chest x-ray done in the ER showed cardiomegaly and mild pulmonary vascular congestion Patient admitted to internal medicine service 03/14. Patient seen examined. Patient sitting upright in the chair. Still has swelling of lower extremities. Denies any shortness of breath at rest. Labs reviewed this morning showed WBC 8.48, hemoglobin 14, platelet count 293 03/15. Patient seen and examined. Still has swelling of lower extremities. Patient weight remains same, gets short of breath on exertion. Labs reviewed showing sodium 136, potassium 3.6, BUN 32, creatinine 1.68, glucose 242. 2D echo done showed impaired LV function with EF between 2025%, mild to moderate mitral regurg, severe pulmonary hypertension, mild to moderate tricuspid regurg 03/16. Patient seen and examined. Cardiology added Entresto and Aldactone on 03/15. EKG overnight showed patient to be in atrial flutter, started on amiodarone 03/17. Patient seen and examined. Patient underwent cardiac cath showing on 03/16 showing normal coronaries. Still having swelling of lower extremities. Gets short of breath on exertion 03/18. Patient seen and examined. Currently n.p.o., going for ISAAC with cardioversion. Labs reviewed showing sodium 138, potassium 3.8, BUN 30, creatinine 1.91. No acute issues overnight REVIEW OF SYSTEMS: CONSTITUTIONAL: No fever, no malaise,. CARDIOVASCULAR: No chest pain, no palpitations, no syncope. PULMONARY: As mentioned above GASTROINTESTINAL: No diarrhea, no nausea, no vomiting, no abdominal pain. NEUROLOGICAL: No headaches, no weakness, PHYSICAL EXAMINATION: GENERAL: The patient is alert and oriented x3, not in any acute distress. Well developed, well n ill looking HEENT: Pupils are round and equally reacting to light. EOMI. No scleral icterus. No conjunctival pallor. Normocephalic, atraumatic. No pharyngeal erythema. No thyromegaly. CARDIOVASCULAR: S1 and S2 present. No murmurs, rubs, or gallops. PULMONARY: Good air entry bilaterally, bilateral crackles audible. ABDOMEN: Soft, nontender, nondistended, normoactive bowel sounds. No palpable organomegaly. MUSCULOSKELETAL: No joint swelling or deformity. EXTREMITIES: No cyanosis, clubbing, 3+ pitting edema of lower extremities bilaterally NEUROLOGICAL: Gross neurological examination did not reveal any focal deficits. SKIN: No rashes. Assessment and plan Acute on chronic systolic CHF Mild to moderate mitral regurg Atrial flutter Severe pulmonary hypertension Elevated troponin Acute kidney injury Acute respiratory distress History of COPD History of hypertension History of hyperlipidemia History of diabetes mellitus Monitor vital signs Monitor CBC Monitor CMP Continue telemetry monitoring Strict I's and O's, daily weights Continue oral Bumex DC heparin, switch to Eliquis Currently on amiodarone 200 mg twice daily Continue Entresto, Aldactone Continue breathing treatments Postcardiac cath showing normal coronaries 2D echo done showed impaired LV function with EF between 5%, mild to moderate mitral regurg, severe pulmonary hypertension, mild to moderate tricuspid regurg Continue blood glucose monitoring continue sliding scale insulin Lantus 20 units twice a day Cardiology following, their notes and recommendations reviewed from 03/18 scheduled for ISAAC with cardioversion today, Pulmonology following, recommendations reviewed from 03/18 Nephrology following, recommendations reviewed from 03/18 Labs and medication were reviewed.. Continue same treatment. Continue with symptomatic treatment. Resume home medication. Monitor labs and vitals. DVT and GI prophylaxis. Further recommendations as per clinical course of the patient Dictation was produced using [employer] dictation software. please excuse any grammatical, word or spelling errors. Objective - Vital Signs Vital signs: Vital Signs Temp 97.3 F L 03/17/25 20:00 Pulse 88 03/18/25 09:37 Resp 16 03/18/25 08:39 BP 114/75 03/18/25 08:39 Pulse Ox 96 03/18/25 08:39 FiO2 Intake & Output 03/17/25 03/18/25 03/18/25 18:59 06:59 18:59 Intake Total 1380 20 Output Total 675 Balance 1380 20 -675 Weight 135.9 kg Intake: IV 170 20 Invasive Line 2 20 20 Intake, IV Titration 250 Amount Amiodarone 450 mg In 250 Dextrose 5% in Water 250 ml @ 0.5 MG/MIN 16.667 mls/hr IV .Q15H [facility] Rx#: [id number] Oral 960 Output: Urine 675 Other: Voiding Method Urinal Urinal # Voids 1 2 - Labs CBC & Chem 7: 03/15/25 06:08 03/18/25 05:59 Labs: Abnormal Lab Results - Last 24 Hours (Table) 03/17/25 03/17/25 03/17/25 Range/Units 10:59 16:26 20:22 BUN (9-20) mg/dL Creatinine (0.66-1.25) mg/dL Glucose (74-99) mg/dL POC Glucose (mg/dL) 234 H 140 H 199 H (70-110) mg/dL 03/18/25 03/18/25 Range/Units 05:59 06:21 BUN 36 H (9-20) mg/dL Creatinine 1.91 H (0.66-1.25) mg/dL Glucose 103 H (74-99) mg/dL POC Glucose (mg/dL) 123 H (70-110) mg/dL
--- NOTE | 2025-03-18 14:24 | P.DS ---
Providers Date of admission: 03/12/25 20:48 Expected date of discharge: 03/18/25 Attending physician: Anaya Bowers Consults: 03/13/25 08:15 Consult Physician Stat Consulting Provider: Slade Kat Consult Reason/Comments: elevated trop Do you want consulting provider notified?: Yes 03/13/25 12:40 Consult Physician Routine Consulting Provider: Fabiola Muller Consult Reason/Comments: COPD, respiratory failure Do you want consulting provider notified?: Yes 03/16/25 11:04 Consult Physician Routine Consulting Provider: Isaac Powell Consult Reason/Comments: AC Do you want consulting provider notified?: Yes Primary care physician: [facility] Course: Discharge diagnoses; Acute on chronic systolic CHF Mild to moderate mitral regurg Atrial flutter Severe pulmonary hypertension Elevated troponin Acute kidney injury Acute respiratory distress History of COPD History of hypertension History of hyperlipidemia History of diabetes mellitus Hospital course; patient is a 64-year-old gentleman with past medical history significant for CHF, COPD, diabetes presents the ER because of worsening shortness of breath for 6 weeks. 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 Patient stated for the last 6 weeks he has been noticing that he has been short of breath on exertion. Shortness of breath has progressively worsened and patient unable to to walk a few steps before getting winded. Patient also complaining of orthopnea. Patient denies any chest pain. There is no complaint of palpitation. Patient is complaining of swelling of lower extremities. Patient stated that he has gained 30 pounds in the last 6 months. Patient admits to taking Lasix at home but has not been able to refill his medication recently. There is no complaint of fever or chills. Patient denies any nausea, vomiting or abdominal pain. Because of this shortness of breath and orthopnea, patient came to the ER Initial lab work done in the ER showed WBC 8.59, hemoglobin 13.7, platelet count 321, sodium 138, potassium 4.5, BUN 32, creatinine 1.83, glucose 160, troponin 0.060, proBNP 4310 EKG done in the ER showed heart rate of 95, no ST segment elevation or depression seen, no T-wave inversions seen. Chest x-ray done in the ER showed cardiomegaly and mild pulmonary vascular congestion Patient admitted to internal medicine service 03/14. Patient seen examined. Patient sitting upright in the chair. Still has swelling of lower extremities. Denies any shortness of breath at rest. Labs reviewed this morning showed WBC 8.48, hemoglobin 14, platelet count 293 03/15. Patient seen and examined. Still has swelling of lower extremities. Patient weight remains same, gets short of breath on exertion. Labs reviewed showing sodium 136, potassium 3.6, BUN 32, creatinine 1.68, glucose 242. 2D echo done showed impaired LV function with EF between 2025%, mild to moderate mitral regurg, severe pulmonary hypertension, mild to moderate tricuspid regurg 03/16. Patient seen and examined. Cardiology added Entresto and Aldactone on 03/15. EKG overnight showed patient to be in atrial flutter, started on amiodaro ne 03/17. Patient seen and examined. Patient underwent cardiac cath showing on 03/16 showing normal coronaries. Still having swelling of lower extremities. Gets short of breath on exertion 03/18. Patient seen and examined. Currently n.p.o., going for ISAAC with cardioversion. Labs reviewed showing sodium 138, potassium 3.8, BUN 30, creatinine 1.91. No acute issues overnight. Patient was scheduled for ISAAC with cardioversion but it was canceled. Cardiology recommended discharging patient on Eliquis and amiodarone. Patient to follow-up outpatient with cardiology and nephrology. PHYSICAL EXAMINATION: GENERAL: The patient is alert and oriented x3, not in any acute distress. Well developed, well n ill looking HEENT: Pupils are round and equally reacting to light. EOMI. No scleral icterus. No conjunctival pallor. Normocephalic, atraumatic. No pharyngeal erythema. No thyromegaly. CARDIOVASCULAR: S1 and S2 present. No murmurs, rubs, or gallops. PULMONARY: Good air entry bilaterally, bilateral crackles audible. ABDOMEN: Soft, nontender, nondistended, normoactive bowel sounds. No palpable organomegaly. MUSCULOSKELETAL: No joint swelling or deformity. EXTREMITIES: No cyanosis, clubbing, 2+ pitting edema of lower extremities bilaterally NEUROLOGICAL: Gross neurological examination did not reveal any focal deficits. SKIN: No rashes. Dictation was produced using [employer]ru[employer] software. please excuse any grammatical, word or spelling errors. Plan - Discharge Summary Discharge Rx Participant: No New Discharge Prescriptions: New Aspirin 81 mg PO DAILY 30 Days #30 tab Bumetanide [BUMEX] 1 mg PO BID@0900,1600 30 Days #60 tab Amiodarone [Cordarone] 200 mg PO BID 30 Days #60 tab Apixaban [Eliquis] 5 mg PO BID 30 Days #60 tab Sacubitril/Valsartan [Entresto 24 mg-26 mg Tablet] 0.5 each PO BID 30 Days #60 tab Atorvastatin [Lipitor] 40 mg PO HS 30 Days #30 tab Budesonide/Formoterol Fumarate [Symbicort 80-4.5 Mcg Inhaler] 2 puff INHALATION BID #10.2 gm Spironolactone [Aldactone] 12.5 mg PO DAILY 30 Days #30 tab Continue Ipratropium/Albuterol Sulfate [Combivent Respimat Inhaler] 2 puff INHALATION RT-DAILY Dulaglutide [Trulicity] 0.75 mg SQ BAIN Empagliflozin [Jardiance] 10 mg PO DAILY Insulin Glargine,Hum.rec.anlog [Toujeo Solostar] 65 units SQ HS metFORMIN HCL ER [Glucophage XR] 1,000 mg PO W/SUPPER Discontinued cilostazoL [Pletal] 100 mg PO BID Furosemide [Lasix] 40 mg PO BID Sacubitril/Valsartan [Entresto 24 mg-26 mg Tablet] 1 tab PO BID Discharge Medication List Ipratropium/Albuterol Sulfate [Combivent Respimat Inhaler] 2 puff INHALATION RT- DAILY 06/02/15 [History] Dulaglutide [Trulicity] 0.75 mg SQ BAIN 03/12/25 [History] Empagliflozin [Jardiance] 10 mg PO DAILY 03/12/25 [History] Insulin Glargine,Hum.rec.anlog [Toujeo Solostar] 65 units SQ HS 03/12/25 [History] metFORMIN HCL ER [Glucophage XR] 1,000 mg PO W/SUPPER 03/12/25 [History] Amiodarone [Cordarone] 200 mg PO BID 30 Days #60 tab 03/18/25 [Rx] Apixaban [Eliquis] 5 mg PO BID 30 Days #60 tab 03/18/25 [Rx] Aspirin 81 mg PO DAILY 30 Days #30 tab 03/18/25 [Rx] Atorvastatin [Lipitor] 40 mg PO HS 30 Days #30 tab 03/18/25 [Rx] Budesonide/Formoterol Fumarate [Symbicort 80-4.5 Mcg Inhaler] 2 puff INHALATION BID #10.2 gm 03/18/25 [Rx] Bumetanide [BUMEX] 1 mg PO BID@0900,1600 30 Days #60 tab 03/18/25 [Rx] Sacubitril/Valsartan [Entresto 24 mg-26 mg Tablet] 0.5 each PO BID 30 Days #60 tab 03/18/25 [Rx] Spironolactone [Aldactone] 12.5 mg PO DAILY 30 Days #30 tab 03/18/25 [Rx] Follow up Appointment(s)/Referral(s): Favio Kirk DO [REFERRING] - 1-2 days [facility] [NON-STAFF] - Slade Kat MD [STAFF PHYSICIAN] - 1 Week Isaac Powell DO [STAFF PHYSICIAN] - 1 Week Discharge Disposition: HOME SELF-CARE
[2025-03-18] MEDS ORDERED: NYSTATIN 100,000 UNIT/GM POWD 15 GM TOPICAL SCH (21:00)
== END 2025-03-18 15:20 | disposition home health service (06) | DRG 286 ==
LOC: EC 17:01 → 3SCARD 20:48
PROVIDERS: ADMIT Internal Medicine; ATTEND Internal Medicine
PROC: B2111ZZ Fluoroscopy of Multiple Coronary Arteries using Low Osmolar Contrast (ICD-10-PCS; 2025-03-17)
PROC: 4A023N7 Measurement of Cardiac Sampling and Pressure, Left Heart, Percutaneous Approach (ICD-10-PCS; principal; 2025-03-17 08:00)
PROC: 3E033RZ Introduction of Antiarrhythmic into Peripheral Vein, Percutaneous Approach (ICD-10-PCS; 2025-03-18)
DX: I13.0 Hypertensive heart and chronic kidney disease with heart failure and stage 1 through stage 4 chronic kidney disease, or unspecified chronic kidney disease (principal); I50.23 Acute on chronic systolic (congestive) heart failure; N17.0 Acute kidney failure with tubular necrosis; I31.39 Other pericardial effusion (noninflammatory); I27.20 Pulmonary hypertension, unspecified; Z68.41 Body mass index [BMI] 40.0-44.9, adult; J44.9 Chronic obstructive pulmonary disease, unspecified; E11.22 Type 2 diabetes mellitus with diabetic chronic kidney disease; N18.31 Chronic kidney disease, stage 3a; I08.1 Rheumatic disorders of both mitral and tricuspid valves; I48.3 Typical atrial flutter; I48.20 Chronic atrial fibrillation, unspecified; I42.8 Other cardiomyopathies; E66.01 Morbid (severe) obesity due to excess calories; Z79.4 Long term (current) use of insulin; R06.03 Acute respiratory distress; E78.5 Hyperlipidemia, unspecified; I25.10 Atherosclerotic heart disease of native coronary artery without angina pectoris; G47.33 Obstructive sleep apnea (adult) (pediatric); Z79.84 Long term (current) use of oral hypoglycemic drugs; I25.2 Old myocardial infarction; Z87.891 Personal history of nicotine dependence; Z79.02 Long term (current) use of antithrombotics/antiplatelets; Z79.51 Long term (current) use of inhaled steroids; Z79.82 Long term (current) use of aspirin; Z79.899 Other long term (current) drug therapy
CPT/HCPCS: 36415; 71046; 76770; 80048; 80053; 81001; 83036; 83605; 83735; 83880; 84484; 85025; 85610; 85730; 93005; 93306; 93458; 94640; 96374; 96376; 99285

== ENCOUNTER 2025-04-08 16:17 | Inpatient (IN) | payer MEDICARE ==
[2025-04-08 17:43] LABS: Basophils # (A) 0.17 10*3/uL (0.00-0.10); Basophils % (A) 1.9 %; Eosinophils # (A) 0.13 10*3/uL (0.04-0.35); Eosinophils % (A) 1.4 %; HCT 47.5 % (39.6-50.0); HGB 14.1 g/dL (13.0-17.0); Lymphocytes # (A) 0.71 10*3/uL (0.90-5.00); Lymphocytes % (A) 7.8 %; MCH 20.8 pg (27.0-32.0); MCHC 29.7 g/dL (32.0-37.0); MCV 70.1 fL (80.0-97.0); Mean Platelet Volume 9.5 fL (9.5-12.2); Monocytes # (A) 1.11 10*3/uL (0.20-1.00); Monocytes % (A) 12.2 %; Neutrophils # (A) 6.92 10*3/uL (1.80-7.70); Platelet Count 385 10*3/uL (140-440); RBC 6.78 10*6/uL (4.40-5.60); RDW 23.8 % (11.5-14.5)
[2025-04-08 17:51] LABS: INR 1.3 (<1.2); Partial Thromboplastin Time 25.4 sec (22.0-30.0)
--- NOTE | 2025-04-08 18:03 | ED ---
General Adult HPI - General Source: patient Mode of arrival: wheelchair Limitations: no limitations <Thao Loco - Last Filed: 04/08/25 19:58> <ShinechekoTeeteeTeresa Jaxon - Last Filed: 04/20/25 23:38> - General Chief complaint: Recheck/Abnormal Lab/Rx Stated complaint: Skin Discolor Time Seen by Provider: 04/08/25 16:58 - History of Present Illness Initial comments: The patient is a 64-year-old gentleman with multiple comorbidities including diabetes, CHF, coronary artery disease, hyperlipidemia, cirrhosis, who presents emergency room with complaints of possible jaundice and shortness of breath. Patient states he was seen at [facility] a week ago and was diagnosed with cirrhosis. He had 4 L taken off with a paracentesis. He states that the breathing did improve at that time. He states that he is starting to have difficulty breathing again especially with laying down and trying to sleep. Patient states that home health nurse was in today and said he started to looked jaundiced. He she recommended he come to the emergency room. Patient denies any chest pain, hemoptysis, fevers. He denies any other new complaints. He has discoloration of the toes which he did not notice until I pointed it out. He states that he has some discoloration of the right third toe that they have been watching as well. He has not checked his blood sugars in a significant amount of time. Patient does live alone (Thao Loco) - Related Data Home Medications Medication Instructions Recorded Confirmed Ipratropium/Albuterol Sulfate 2 puff INHALATION RT-DAILY 06/02/15 04/17/25 [Combivent Respimat Inhaler] Dulaglutide [Trulicity] 0.75 mg SQ BAIN 03/12/25 04/17/25 Empagliflozin [Jardiance] 10 mg PO DAILY 03/12/25 04/17/25 Budesonide/Formoterol Fumarate 2 puff INHALATION RT-BID 04/08/25 04/17/25 [Symbicort 80-4.5 Mcg Inhaler] Sacubitril/Valsartan [Entresto 24 0.5 tab PO BID 04/08/25 04/17/25 mg-26 mg Tablet] carvediloL [Coreg] 3.125 mg PO BID 04/08/25 04/17/25 Previous Rx's Medication Instructions Recorded Amiodarone [Cordarone] 200 mg PO BID 30 Days #60 tab 03/18/25 Apixaban [Eliquis] 5 mg PO BID 30 Days #60 tab 03/18/25 Aspirin 81 mg PO DAILY 30 Days #30 tab 03/18/25 Atorvastatin [Lipitor] 40 mg PO HS 30 Days #30 tab 03/18/25 Bumetanide [BUMEX] 1 mg PO BID@0900,1600 30 Days #60 03/18/25 tab Insulin Glargine,Hum.rec.anlog 25 units SQ HS #0 04/14/25 [Toujeo Solostar] Nystatin 100,000 Unit/gm Powd 1 applic TOPICAL BID #1 each 04/14/25 [Mycostatin Powder] Allergies Allergy/AdvReac Type Severity Reaction Status Date / Time No Known Allergies Allergy Verified 04/17/25 14:30 Review of Systems ROS Other: All systems not noted in ROS Statement are negative. Constitutional: Reports: as per HPI. Denies: fever, chills Eyes: Reports: as per HPI, other (Jaundice) ENT: Reports: as per HPI Respiratory: Reports: dyspnea. Denies: cough, wheezes Cardiovascular: Reports: as per HPI. Denies: chest pain, palpitations Genitourinary: Reports: as per HPI Musculoskeletal: Reports: as per HPI Skin: Reports: as per HPI, other (Chronic venous stasis changes) Neurological: Reports: as per HPI Psychiatric: Reports: as per HPI <Thao Loco - Last Filed: 04/08/25 19:58> ROS Other: All systems not noted in ROS Statement are negative. <Teresa Fernandes - Last Filed: 04/20/25 23:38> ROS Statement: Those systems with pertinent positive or pertinent negative responses have been documented in the HPI. Past Medical History Past Medical History: Chest Pain / Angina, Heart Failure, COPD, Diabetes Mellitus, Hyperlipidemia, Hypertension, Liver Disease, Myocardial Infarction ([place]), Sleep Apnea/CPAP/BIPAP Additional Past Medical History / Comment(s): wound rt talley Last Myocardial Infarction Date:: 1987 History of Any Multi-Drug Resistant Organisms: None Reported Past Surgical History: Adenoidectomy, Cholecystectomy, Heart Catheterization, Tonsillectomy Additional Past Surgical History / Comment(s): UPP, mastoidectomy, septoplasty, stent in left leg, ablation Past Anesthesia/Blood Transfusion Reactions: No Reported Reaction Past Psychological History: No Psychological Hx Reported Smoking Status: Never smoker Past Alcohol Use History: Occasional Past Drug Use History: None Reported - Past Family History Mother Family Medical History: No Reported History Father Family Medical History: Hypertension <Fatuma Locon - Last Filed: 04/08/25 19:58> General Exam Limitations: no limitations General appearance: alert, in no apparent distress Head exam: Present: atraumatic Eye exam: Present: normal appearance, PERRL, EOMI, other (Possible slight jaundice of the bilateral eyes). Absent: scleral icterus, periorbital swelling ENT exam: Present: normal exam Neck exam: Present: normal inspection, full ROM Respiratory exam: Absent: respiratory distress, stridor, chest wall tenderness Cardiovascular Exam: Present: regular rate GI/Abdominal exam: Present: soft Extremities exam: Present: other (Diffuse chronic venous stasis changes bilaterally, erythema and discoloration of the feet bilaterally. Discoloration of the right third toe without any open wound or drainage. Decreased pulses throughout the lower extremities) Neurological exam: Present: alert, altered, oriented X3 Psychiatric exam: Present: normal affect, normal mood Skin exam: Present: warm, other ( discolored bilateral lower extremities discolored feet. discoloration of right 3rd toe) <Andrew Locolyn - Last Filed: 04/08/25 19:58> Course <Andrew Locolyn - Last Filed: 04/08/25 19:58> Vital Signs 04/08/25 04/08/25 04/08/25 16:47 18:38 19:02 Temperature 97.8 F Pulse Rate 82 80 82 Pulse Rate [ Pulse Oximetery ] Respiratory 16 18 18 Rate Blood Pressure 109/76 108/72 105/87 Blood Pressure [Right Arm] O2 Sat by Pulse 98 96 96 Oximetry 04/08/25 04/08/25 04/08/25 21:28 22:08 23:19 Temperature Pulse Rate Pulse Rate [ 76 80 Pulse Oximetery ] Respiratory Rate Blood Pressure Blood Pressure 106/78 118/93 [Right Arm] O2 Sat by Pulse 97 Oximetry 04/09/25 04/09/25 04/09/25 01:26 02:00 08:24 Temperature 98.6 F 97.7 F Pulse Rate 84 Pulse Rate [ 76 76 Pulse Oximetery ] Respiratory 18 161 H Rate Blood Pressure 104/85 Blood Pressure 127/93 [Right Arm] O2 Sat by Pulse 98 93 L Oximetry 04/09/25 04/09/25 04/09/25 08:50 08:58 10:19 Temperature Pulse Rate 82 80 82 Pulse Rate [ Pulse Oximetery ] Respiratory 19 Rate Blood Pressure 119/83 Blood Pressure [Right Arm] O2 Sat by Pulse 97 Oximetry 04/09/25 04/09/25 04/09/25 12:41 14:56 18:07 Temperature Pulse Rate 81 82 81 Pulse Rate [ Pulse Oximetery ] Respiratory 22 18 16 Rate Blood Pressure 110/82 115/82 114/78 Blood Pressure [Right Arm] O2 Sat by Pulse 97 99 97 Oximetry - Reevaluation(s) Reevaluation #1: 04/08/251944 Patient is stable at this time. Vital signs are stable. Discussed admission for further evaluation management of the CHF exacerbation. Liver enzymes are not significantly elevated at this time. They can determine whether they would like to do a paracentesis or ultrasound to further evaluate for worsening ascites upon admission. Troponin is slightly elevated due to the CHF exacerbation. There is no chest pain. Consult to Dr. Wolf was put in upon admission. Patient was given IV Bumex per the request of admitting physician Dr. Bernal. I discussed admission with the patient. Discussed patient's symptoms workup and admission plan with Dr. Fernandes as well (Thao Loco) EKG Findings - EKG Comments: EKG Findings:: EKG shows ectopic atrial rhythm with first-degree AV block prolonged QT no acute ST segment elevation rate of 81 bpm QT interval of 554 ms <Thao Loco - Last Filed: 04/08/25 19:58> Medical Decision Making - Lab Data Result diagrams: 04/08/25 17:32 04/08/25 17:32 - EKG Data -: EKG Interpreted by Me - Radiology Data Radiology results: report reviewed, image reviewed <Thao Loco - Last Filed: 04/08/25 19:58> - Lab Data Result diagrams: 04/08/25 17:32 04/14/25 06:33 <Teresa Fernandes - Last Filed: 04/20/25 23:38> - Medical Decision Making Was pt. sent in by a medical professional or institution ([facility], [employer] [employer], urgent care, hospital, or [facility]...) When possible be specific @ -Sent in by home health nurse Did you speak to anyone other than the patient for history (EMS, parent, family, police, friend...)? What history was obtained from this source @ -I spoke with Dr. Bernal admitting physician for this patient regarding admission plan and meds to put in Did you review nursing and triage notes (agree or disagree)? Why? @ -Yes I reviewed nursing notes and triage notes Were old charts reviewed (outside hosp., previous admission, EMS record, old EKG, old radiological studies, urgent care reports/EKG's, [facility] records)? Report findings @ -Yes while charts were reviewed Differential Diagnosis (chest pain, altered mental status, abdominal pain women, abdominal pain men, vaginal bleeding, weakness, fever, dyspnea, syncope, h eadache, dizziness, GI bleed, back pain, seizure, CVA, palpatations, mental health, musculoskeletal)? @ -Cirrhosis, CHF exacerbation, chronic venous stasis changes, elevated bilirubin EKG interpreted by me (3pts min.). @ -EKG shows ectopic atrial rhythm with first-degree AV block rate of 81 bpm, prolonged QT interval at 553 ms noted X-rays interpreted by me (1pt min.). @ -Chest x-ray shows vascular congestion consistent with CHF no obvious deformity or pneumothorax seen. No fractures or obvious deformities of the right foot seen. Pending radiology report for confirmation CT interpreted by me (1pt min.). @ -[None done] U/S interpreted by me (1pt. min.). @ -[None done] What testing was considered but not performed or refused? (CT, X-rays, U/S, labs)? Why? @ -[None] What meds were considered but not given or refused? Why? @ -[None] Did you discuss the management of the patient with other professionals (professionals i.e. AN[facility]BAL García, [employer]NE[employer] W[employer]KER, lab, RT, psych nurse, social worker psychiatric, food cooking machine operator, teacher, aoc aad[employer] operations staff officer, trimming caser)? Give summary @ -Discussed management with admitting physician Dr. Bernal and hospital care discussed with physician. Discussed admission orders as well. I spoke with attending E D physician as well regarding patient's symptoms workup and management. Was smoking cessation discussed for >3mins.? @ -[No] Was critical care preformed (if so, how long)? @ -[No] Were there social determinants of health that impacted care today? How? (Homelessness, low income, unemployed, alcoholism, drug addiction, transportation, low edu. Level, literacy, decrease access to med. care, [facility], rehab)? @ -[No] Was there de-escalation of care discussed even if they declined (Discuss DNR or withdrawal of care, Hospice)? DNR status @ -[No] What co-morbidities impacted this encounter? (DM, HTN, Smoking, COPD, CAD, Cancer, CVA, ARF, Chemo, Hep., AIDS, mental health diagnosis, sleep apnea, morbid obesity)? @ -CHF, cirrhosis, hypertension, hyperlipidemia, coronary artery disease Was patient admitted / discharged? Hospital course, mention meds given and route, prescriptions, significant lab abnormalities, going to OR and other pertinent info. @ -Patient will be admitted for further management of th CHF exacerbatione Undiagnosed new problem with uncertain prognosis? @ -[No] Drug Therapy requiring intensive monitoring for toxicity (Heparin, Nitro, Insulin, Cardizem)? @ -[No] Were any procedures done? @ -[No] Diagnosis/symptom? @ -CHF exacerbation, elevated troponin, elevated bilirubin, history of cirrhosis chronic venous stasis changes, discoloration of the right third toe Acute, or Chronic, or Acute on Chronic? @ -Acute on chronic Uncomplicated (without systemic symptoms) or Complicated (systemic symptoms)? @ -[default] Side effects of treatment? @ -[No] Exacerbation, Progression, or Severe Exacerbation? @ -Exacerbation Poses a threat to life or bodily function? How? (Chest pain, [place], [place], pneumonia, PE, COPD, DKA, ARF, appy, cholecystitis, CVA, Diverticulitis, Homicidal, Suicidal, threat to staff... and all critical care pts) @ -[No] (Thao Loco) - Lab Data Lab Results 04/08/25 04/08/25 04/08/25 Range/Units 17:32 17:32 17:32 WBC 9.10 (4.50-10.00) 10*3/uL RBC 6.78 H (4.40-5.60) 10*6/uL Hgb 14.1 (13.0-17.0) g/dL Hct 47.5 (39.6-50.0) % MCV 70.1 L (80.0-97.0) fL MCH 20.8 L (27.0-32.0) pg MCHC 29.7 L (32.0-37.0) g/dL Plt Count 385 (140-440) 10*3/uL MPV 9.5 (9.5-12.2) fL Immature Gran % (Auto) 0.7 % Neutrophils % 76.0 % Lymphocytes % 7.8 % Monocytes % 12.2 % Eosinophils % 1.4 % Basophils % 1.9 % Immature Gran # 0.06 H (0.00-0.04) 10*3/uL Neutrophils # 6.92 (1.80-7.70) 10*3/uL Lymphocytes # 0.71 L (0.90-5.00) 10*3/uL Monocytes # 1.11 H (0.20-1.00) 10*3/uL Eosinophils # 0.13 (0.04-0.35) 10*3/uL Basophils # 0.17 H (0.00-0.10) 10*3/uL Manual Slide Review Performed Anisocytosis (manual) Present PT 14.0 H (10.0-12.5) sec INR 1.3 H (<1.2) APTT 25.4 (22.0-30.0) sec Sodium 135 L (137-145) mmol/L Potassium 4.7 (3.5-5.1) mmol/L Chloride 103 (98-107) mmol/L Carbon Dioxide 22 (22-30) mmol/L Anion Gap 10 mmol/L BUN 43 H (9-20) mg/dL Creatinine 1.94 H (0.66-1.25) mg/dL Est GFR (CKD-EPI)AfAm 41 (>60 ml/min/1.73 sqM) Est GFR (CKD-EPI)NonAf 35 (>60 ml/min/1.73 sqM) Glucose 155 H (74-99) mg/dL Calcium 9.0 (8.4-10.2) mg/dL Total Bilirubin 1.4 H (0.2-1.3) mg/dL Conjugated Bilirubin (0.0-0.3) mg/dL Unconjugated Bilirubin (0.0-1.1) mg/dL Delta Bilirubin (0.0-0.2) mg/dL AST 28 (17-59) U/L ALT 16 (4-49) U/L Alkaline Phosphatase 161 H (38-126) U/L Troponin I (0.000-0.034) ng/mL NT-Pro-B Natriuret Pep 7910 pg/mL Total Protein 6.2 L (6.3-8.2) g/dL Albumin 3.4 L (3.5-5.0) g/dL 04/08/25 04/08/25 Range/Units 17:32 17:32 WBC (4.50-10.00) 10*3/uL RBC (4.40-5.60) 10*6/uL Hgb (13.0-17.0) g/dL Hct (39.6-50.0) % MCV (80.0-97.0) fL MCH (27.0-32.0) pg MCHC (32.0-37.0) g/dL Plt Count (140-440) 10*3/uL MPV (9.5-12.2) fL Immature Gran % (Auto) % Neutrophils % % Lymphocytes % % Monocytes % % Eosinophils % % Basophils % % Immature Gran # (0.00-0.04) 10*3/uL Neutrophils # (1.80-7.70) 10*3/uL Lymphocytes # (0.90-5.00) 10*3/uL Monocytes # (0.20-1.00) 10*3/uL Eosinophils # (0.04-0.35) 10*3/uL Basophils # (0.00-0.10) 10*3/uL Manual Slide Review Anisocytosis (manual) PT (10.0-12.5) sec INR (<1.2) APTT (22.0-30.0) sec Sodium (137-145) mmol/L Potassium (3.5-5.1) mmol/L Chloride (98-107) mmol/L Carbon Dioxide (22-30) mmol/L Anion Gap mmol/L BUN (9-20) mg/dL Creatinine (0.66-1.25) mg/dL Est GFR (CKD-EPI)AfAm (>60 ml/min/1.73 sqM) Est GFR (CKD-EPI)NonAf (>60 ml/min/1.73 sqM) Glucose (74-99) mg/dL Calcium (8.4-10.2) mg/dL Total Bilirubin 1.4 H (0.2-1.3) mg/dL Conjugated Bilirubin 0.0 (0.0-0.3) mg/dL Unconjugated Bilirubin 0.7 (0.0-1.1) mg/dL Delta Bilirubin 0.7 H (0.0-0.2) mg/dL AST (17-59) U/L ALT (4-49) U/L Alkaline Phosphatase (38-126) U/L Troponin I 0.041 H* (0.000-0.034) ng/mL NT-Pro-B Natriuret Pep pg/mL Total Protein (6.3-8.2) g/dL Albumin (3.5-5.0) g/dL Disposition Decision to Admit Reason: Admit from [facility] Decision Date: 04/08/25 (admit to Dr Bernal) Decision Time: 20:07 <Thao Loco - Last Filed: 04/08/25 19:58> <Teresa Fernandes - Last Filed: 04/20/25 23:38> Clinical Impression: CHF (congestive heart failure), Cirrhosis, Chronic venous stasis, Dyspnea Disposition: ADMITTED IP TO THIS HOSP
[2025-04-08 18:09] LABS: Anisocytosis (M) Present
[2025-04-08 18:20] LABS: ALT 16 U/L (4-49); African American GFR (CKD) 41 (>60 ml/min/1.73 sqM); Albumin 3.4 g/dL (3.5-5.0); Anion Gap 10 mmol/L; Blood Urea Nitrogen 43 mg/dL (9-20); Carbon Dioxide 22 mmol/L (22-30); Chloride 103 mmol/L (98-107); Glucose 155 mg/dL (74-99); Non-African American GFR(CKD) 35 (>60 ml/min/1.73 sqM); Sodium 135 mmol/L (137-145); Total Bilirubin 1.4 mg/dL (0.2-1.3); Total Protein 6.2 g/dL (6.3-8.2)
[2025-04-08 18:26] LABS: NT-Pro-B-Type Natriuretic Pept 7910 pg/mL
[2025-04-08 18:36] LABS: AST 28 U/L (17-59); Alkaline Phosphatase 161 U/L (38-126); Potassium 4.7 mmol/L (3.5-5.1)
--- NOTE | 2025-04-08 19:20 | XR ---
EXAMINATION TYPE: XR foot complete RT DATE OF EXAM: 04/08/2025 7:00 PM COMPARISON: None CLINICAL INDICATION: Male, 64 years old with history of discolored 3rd toe; PHH, pain TECHNIQUE: XR foot complete RT examined in the AP, oblique, and lateral projections. FINDINGS: No evidence of any acute osseous pathology. Soft tissue swelling present. No evidence of osseous e rosion to suggest osteomyelitis. Multifocal degeneration changes throughout the joints of the foot wi th osteophyte formation and joint space narrowing. IMPRESSION: 1. No evidence of acute fracture. 2. Soft tissue swelling without evidence of fracture or osseous erosion. 3. Multifocal degeneration changes throughout the joints of the foot. [facility], , 04/08/2025 7:18 PM
--- NOTE | 2025-04-08 19:21 | XR ---
EXAMINATION TYPE: XR chest 2V DATE OF EXAM: 04/08/2025 7:00 PM COMPARISON: Chest radiographs from 03/13/2025. CLINICAL INDICATION: Male, 64 years old with history of shortness of breath; [facility] TECHNIQUE: XR chest 2V Frontal and lateral views of the chest. FINDINGS: Lungs/Pleura: There is no evidence of pleural effusion, focal consolidation, or pneumothorax. Pulmonary vascularity: Unremarkable. Heart/mediastinum: Cardiomediastinal silhouette is enlarged. Musculoskeletal: No acute osseous pathology. IMPRESSION: Cardiomegaly and mild pulmonary vascular congestion. Correlate with BNP for congestive heart failure. [facility], , 04/08/2025 7:18 PM
[2025-04-08 19:56] LABS: Bilirubin, Delta 0.7 mg/dL (0.0-0.2); Bilirubin,Unconjugated 0.7 mg/dL (0.0-1.1); Total Bilirubin 1.4 mg/dL (0.2-1.3)
[2025-04-08 21:13] LABS: ALT 17 U/L (4-49); AST 25 U/L (17-59); African American GFR (CKD) 41 (>60 ml/min/1.73 sqM); Albumin 3.9 g/dL (3.5-5.0); Alkaline Phosphatase 165 U/L (38-126); Anion Gap 12 mmol/L; Blood Urea Nitrogen 43 mg/dL (9-20); Calcium 9.3 mg/dL (8.4-10.2); Carbon Dioxide 26 mmol/L (22-30); Chloride 99 mmol/L (98-107); Glucose 125 mg/dL (74-99); Non-African American GFR(CKD) 35 (>60 ml/min/1.73 sqM); Potassium 4.7 mmol/L (3.5-5.1); Sodium 137 mmol/L (137-145); Total Bilirubin 1.4 mg/dL (0.2-1.3); Total Protein 6.7 g/dL (6.3-8.2)
[2025-04-08 21:22] LABS: NT-Pro-B-Type Natriuretic Pept 7970 pg/mL
[2025-04-08] MEDS: BUMETANIDE 0.25 MG/ML 4 ML VIAL IV SCH (22:09)
[2025-04-08] MEDS ORDERED: DEXTROSE 50% SYRINGE 50 ML IVP PRN ×2 (22:45)
[2025-04-08 22:48] LABS: Glucose,Whole Blood 112 mg/dL (70-110)
[2025-04-08] MEDS: ATORVASTATIN 40 MG TAB PO SCH (23:16)
[2025-04-08] MEDS: SACUBITRIL/VALSARTAN 24 MG-26 MG TABLET PO SCH (23:16)
[2025-04-08] MEDS: APIXABAN 5 MG TAB PO SCH (23:17)
[2025-04-08] MEDS: AMIODARONE 200 MG TAB PO SCH (23:17)
[2025-04-09 06:18] LABS: Glucose,Whole Blood 186 mg/dL (70-110)
[2025-04-09] MEDS: metFORMIN 500 MG TAB PO SCH (06:28)
[2025-04-09] MEDS: carvediloL 3.125 MG TAB PO SCH (06:28)
[2025-04-09] MEDS: INSULIN LISPRO (HumaLOG) 100 UNIT/ML 10 mL VL SQ SCH (06:29)
[2025-04-09] MEDS: SYMBICORT 80-4.5 MCG INHALER INHALATION SCH (08:49)
[2025-04-09] MEDS: IPRATROPIUM-ALBUTEROL 3 ML NEB INHALATION SCH (08:49)
[2025-04-09] MEDS: ASPIRIN 81 MG PO SCH (08:54)
[2025-04-09] MEDS: SPIRONOLACTONE 25 MG TAB PO SCH (08:54)
[2025-04-09] MEDS: DAPAGLIFLOZIN PROPANEDIOL 5 MG TABLET PO SCH (08:54)
[2025-04-09] MEDS: BUMETANIDE 0.25 MG/ML 4 ML VIAL IV SCH (09:06)
--- NOTE | 2025-04-09 09:23 | US ---
EXAMINATION TYPE: US abdomen limited DATE OF EXAM: 04/09/2025 COMPARISON: NONE CLINICAL INDICATION: Male, 64 years old with history of ascites eval; Ascites TECHNIQUE: Grayscale imaging of the abdomen for ascites. FINDINGS: Small amount of ascites within abdomen IMPRESSION: 1. Mild ascites [facility], , 04/09/2025 9:21 AM
--- NOTE | 2025-04-09 11:30 | P.CRDCN ---
History of Present Illness Consult date: 04/09/25 Consult reason: congestive heart failure History of present illness: This is a 64-year-old male patient of Dr. Kat with past medical history of nonischemic cardiomyopathy with EF of 20 to 25%, paroxysmal atrial flutter, valvular heart disease with moderate MR, moderate TR, severe pulmonary hypertension, diabetes, hypertension, dyslipidemia, chronic kidney disease and morbid obesity. Patient was recently established with Dr. Kat after a ho spitalization in February at which time he was treated for heart failure. Patient states that he was also hospitalized last week at [facility] and was in atrial flutter with plan for ISAAC and cardioversion but for some reason this was canceled and patient is scheduled for outpatient ISAAC and cardioversion with Dr. Kat on 04/16. During that hospitalization, patient apparently underwent paracentesis with removal of 4 L of fluid which helped his breathing. He had presented with shortness of breath. Patient has had chronic shortness of breath with worsening as well as weight gain consistent over the past 6 months. He complains of fatigue and not sleeping at night due to his shortness of breath. He states he did have improvement of his swelling while he was at [facility] except for the scrotal edema did not go down. Patient has been started on Bumex 1 mg IV every 12 hours but patient states he does not feel his symptoms are improving. Blood pressure 104/85, heart rate 81, pulse ox 93% on room air. Patient is afebrile. Patient is seen today in the emergency center waiting for a bed on the observation unit. We have requested the patient be admitted to 3 S. -EKG: Atrial tachycardia versus atrial flutter 2-1 conduction -Chest x-ray: Cardiomegaly and mild pulmonary vascular congestion. -Laboratory studies: Troponin 0.041, 0.046, 0.043. WBC 9.1, hemoglobin 14.1. Electrolytes are within normal limits. BUN 43 creatinine 1.94 which appears to be his baseline. Alkaline phosphatase 165. proBNP 7970. -Home cardiac medications: Amiodarone 200 mg twice daily, Eliquis 5 mg twice daily, aspirin 81 mg daily, a atorvastatin 40 mg at bedtime, Bumex 1 mg twice daily, Coreg 3.125 mg twice daily, Jardiance 10 mg daily, Entresto 24-26 mg half a tablet twice daily, spironolactone 12.5 mg daily. -Echocardiogram performed 03/14/2025 revealed EF of 20 to 25%, mild to moderate mitral regurgitation, severe pulmonary hypertension, mild to moderate tricuspid regurgitation, small pericardial effusion. Review Of Systems: At the time of my exam: CONSTITUTIONAL: Denies fever or chills. Reports fatigue. Reports insomnia. HEENT: Denies blurred vision, vision changes, or eye pain. Denies hemoptysis CARDIOVASCULAR: Denies chest pain. Denies orthopnea. Denies PND. Denies palpitations. Reports edema. RESPIRATORY: Reports dyspnea on exertion, reports shortness of breath. GASTROINTESTINAL: Denies abdominal pain. Denies nausea or vomiting. HEMATOLOGIC: Denies bleeding disorders. GENITOURINARY: Denies any blood in urine. SKIN: Denies puritis. Denies rash. Physical examination: Gen: This is a 64-year-old male in no acute distress VS: reviewed HEENT: Head is atraumatic, normocephalic. Pupils equal, round. Sclerae is anicteric. NECK: Supple. No JVD. LUNGS: Breath sounds with crackles in the bilateral bases. No intercostal retractions. HEART: Irregular rate and rhythm. Systolic murmur. ABDOMEN: Tense no tenderness. EXTREMITIES: 3+ bilateral lower extremity edema. No calf tenderness. NEUROLOGICAL: Patient is awake, alert and oriented x3. Assessment: Acute on chronic systolic heart failure Flat troponins not indicative of acute coronary syndrome Atrial tachycardia versus atrial flutter 2-1 conduction Recent diagnosis of cirrhosis of the liver at [facility] status post paracentesis with removal of 4 L of fluid Nonischemic cardiomyopathy with EF of 20 to 25% Valvular heart disease with moderate MR, moderate TR Severe pulmonary hypertension, RVSP estimated at 56 mmHg Diabetes mellitus type 2 Hypertension Dyslipidemia Chronic kidney disease stage stage III Morbid obesity with BMI of 40 Plan: Admit patient to 3 S. Resume patient's home cardiac medications Continue IV Bumex and increase to 2 mg twice daily Monitor JULES, daily weights, electrolytes and renal function Abdominal ultrasound to assess for ascites No need to repeat echocardiogram as this was done in February Obtain recent records from [facility] Further recommendations to follow based upon clinical course Patient may benefit from cardioversion and/or ablation down the road. Patient is scheduled for outpatient ISAAC and cardioversion with Dr. Kat on 04/16. Thank you kindly for this consultation. Nurse practitioner note has been reviewed, I agree with documented findings and plan of care. Patient was seen and examined. Past Medical History Past Medical History: Chest Pain / Angina, Heart Failure, COPD, Diabetes Mellitus, Hyperlipidemia, Hypertension, Liver Disease, Myocardial Infarction ([place]), Sleep Apnea/CPAP/BIPAP Additional Past Medical History / Comment(s): wound rt [place], liver cirrhosis Last Myocardial Infarction Date:: 1987 History of Any Multi-Drug Resistant Organisms: None Reported Past Surgical History: Adenoidectomy, Cholecystectomy, Heart Catheterization, Tonsillectomy Additional Past Surgical History / Comment(s): UPP, mastoidectomy, septoplasty, stent in left leg, ablation Past Anesthesia/Blood Transfusion Reactions: No Reported Reaction Past Psychological History: No Psychological Hx Reported Smoking Status: Never smoker Past Alcohol Use History: Occasional Past Drug Use History: None Reported - Past Family History Mother Family Medical History: No Reported History Father Family Medical History: Hypertension Medications and Allergies Home Medications Medication Instructions Recorded Confirmed Type Ipratropium/Albuterol Sulfate 2 puff INHALATION RT-DAILY 06/02/15 04/08/25 History [Combivent Respimat Inhaler] Dulaglutide [Trulicity] 0.75 mg SQ BAIN 03/12/25 04/08/25 History Empagliflozin [Jardiance] 10 mg PO DAILY 03/12/25 04/08/25 History Insulin Glargine,Hum.rec.anlog 65 units SQ HS 03/12/25 04/08/25 History [Arvind Zuñiga] metFORMIN HCL ER [Glucophage XR] 1,000 mg PO W/SUPPER 03/12/25 04/08/25 History Amiodarone [Cordarone] 200 mg PO BID 30 Days #60 tab 03/18/25 04/08/25 Rx Apixaban [Eliquis] 5 mg PO BID 30 Days #60 tab 03/18/25 04/08/25 Rx Aspirin 81 mg PO DAILY 30 Days #30 tab 03/18/25 04/08/25 Rx Atorvastatin [Lipitor] 40 mg PO HS 30 Days #30 tab 03/18/25 04/08/25 Rx Bumetanide [BUMEX] 1 mg PO BID@0900,1600 30 Days #60 03/18/25 04/08/25 Rx tab Spironolactone [Aldactone] 12.5 mg PO DAILY 30 Days #30 tab 03/18/25 04/08/25 Rx Budesonide/Formoterol Fumarate 2 puff INHALATION RT-BID 04/08/25 04/08/25 History [Symbicort 80-4.5 Mcg Inhaler] Sacubitril/Valsartan [Entresto 24 0.5 tab PO BID 04/08/25 04/08/25 History mg-26 mg Tablet] carvediloL [Coreg] 3.125 mg PO BID 04/08/25 04/08/25 History Allergies Allergy/AdvReac Type Severity Reaction Status Date / Time No Known Allergies Allergy Verified 04/08/25 20:47 Physical Exam Vitals: Vital Signs Temp Pulse Pulse Resp BP BP Pulse Ox 04/09/25 08:24 97.7 F 84 161 H 104/85 93 L 04/09/25 02:00 76 04/09/25 01:26 98.6 F 76 18 127/93 98 04/08/25 23:19 118/93 04/08/25 22:08 80 106/78 97 04/08/25 21:28 76 04/08/25 19:02 82 18 105/87 96 04/08/25 18:38 80 18 108/72 96 04/08/25 16:47 97.8 F 82 16 109/76 98 Intake and Output 04/08/25 04/09/25 04/09/25 22:59 06:59 14:59 Output Total 500 Balance -500 Output: Urine 500 Other: Voiding Method Urinal Weight 136.078 kg Results 04/08/25 17:32 04/08/25 20:38 Cardiac Enzymes 04/08/25 04/08/25 04/08/25 Range/Units 17:32 17:32 20:38 AST 28 25 (17-59) U/L Troponin I 0.041 H* (0.000-0.034) ng/mL 04/08/25 04/08/25 Range/Units 20:38 23:53 AST (17-59) U/L Troponin I 0.046 H* 0.043 H* (0.000-0.034) ng/mL Coagulation 04/08/25 Range/Units 17:32 PT 14.0 H (10.0-12.5) sec APTT 25.4 (22.0-30.0) sec CBC 04/08/25 Range/Units 17:32 WBC 9.10 (4.50-10.00) 10*3/uL RBC 6.78 H (4.40-5.60) 10*6/uL Hgb 14.1 (13.0-17.0) g/dL Hct 47.5 (39.6-50.0) % Plt Count 385 (140-440) 10*3/uL Comprehensive Metabolic Panel 04/08/25 04/08/25 04/08/25 Range/Units 17:32 17:32 20:38 Sodium 135 L 137 (137-145) mmol/L Potassium 4.7 4.7 (3.5-5.1) mmol/L Chloride 103 99 (98-107) mmol/L Carbon Dioxide 22 26 (22-30) mmol/L BUN 43 H 43 H (9-20) mg/dL Creatinine 1.94 H 1.94 H (0.66-1.25) mg/dL Glucose 155 H 125 H (74-99) mg/dL Calcium 9.0 9.3 (8.4-10.2) mg/dL Unconjugated Bilirubin 0.7 (0.0-1.1) mg/dL AST 28 25 (17-59) U/L ALT 16 17 (4-49) U/L Alkaline Phosphatase 161 H 165 H (38-126) U/L Total Protein 6.2 L 6.7 (6.3-8.2) g/dL Albumin 3.4 L 3.9 (3.5-5.0) g/dL Current Medications Generic Name Dose Route Start Last Admin Trade Name Freq PRN Reason Stop Dose Admin Albuterol/Ipratropium 3 ml 04/09/25 08:00 Ipratropium-Albuterol 3 Ml Neb INHALATION RT-DAILY [facility] Amiodarone HCl 200 mg 04/08/25 22:45 04/08/25 23:17 Amiodarone 200 Mg Tab PO 200 mg BID JASMEET Administration Apixaban 5 mg 04/08/25 22:45 04/08/25 23:17 Apixaban 5 Mg Tab PO 5 mg BID [facility] Administration Protocol Aspirin 81 mg 04/09/25 09:00 Aspirin 81 Mg PO DAILY JASMEET Atorvastatin Calcium 40 mg 04/08/25 22:45 04/08/25 23:16 Atorvastatin 40 Mg Tab PO 40 mg HS JASMEET Administration Budesonide/Formoterol Fumarate 2 puff 04/09/25 08:00 Symbicort 80-4.5 Mcg Inhaler INHALATION RT-BID JASMEET Bumetanide 1 mg 04/08/25 20:00 04/08/25 22:09 Bumetanide 0.25 Mg/Ml 4 Ml Vial IV 1 mg Q12H JASMEET Administration Carvedilol 3.125 mg 04/09/25 07:30 04/09/25 06:28 Carvedilol 3.125 Mg Tab PO 3.125 mg BID-W/MEALS JASMEET Administration Dapagliflozin 5 mg 04/09/25 09:00 Dapagliflozin Propanediol 5 Mg Tablet PO DAILY JASMEET Dextrose/Water 25 ml 04/08/25 22:45 Dextrose 50% Syringe 50 Ml IVP PER PROTOCOL PRN Hypoglycemia Protocol Dextrose/Water 50 ml 04/08/25 22:45 Dextrose 50% Syringe 50 Ml IVP PER PROTOCOL PRN Hypoglycemia Protocol Insulin Human Lispro 0 unit 04/09/25 07:30 04/09/25 06:29 Insulin Lispro (Humalog) 100 Unit/Ml 10 Ml Vl SQ 2 unit ACHS JASMEET Administration Protocol Metformin HCl 500 mg 04/09/25 07:30 04/09/25 06:28 Metformin 500 Mg Tab PO 500 mg BID-W/MEALS JASMEET Administration Sacubitril/Valsartan 0.5 each 04/08/25 22:45 04/08/25 23:16 Sacubitril/Valsartan 24 Mg-26 Mg Tablet PO 0.5 each BID JASMEET Administration Spironolactone 12.5 mg 04/09/25 09:00 Spironolactone 25 Mg Tab PO DAILY [facility] Intake and Output 04/08/25 04/09/25 04/09/25 22:59 06:59 14:59 Output Total 500 Balance -500 Output: Urine 500 Other: Voiding Method Urinal Weight 136.078 kg 04/08/25 17:32 04/08/25 20:38
[2025-04-09 11:44] LABS: Glucose,Whole Blood 167 mg/dL (70-110)
[2025-04-09 12:02] LABS: African American GFR (CKD) 43 (>60 ml/min/1.73 sqM); Anion Gap 9 mmol/L; Blood Urea Nitrogen 42 mg/dL (9-20); Calcium 9.5 mg/dL (8.4-10.2); Carbon Dioxide 28 mmol/L (22-30); Chloride 100 mmol/L (98-107); Glucose 117 mg/dL (74-99); Non-African American GFR(CKD) 37 (>60 ml/min/1.73 sqM); Potassium 4.9 mmol/L (3.5-5.1); Sodium 137 mmol/L (137-145)
[2025-04-09 18:38] LABS: Glucose,Whole Blood 160 mg/dL (70-110)
[2025-04-09] MEDS ORDERED: DEXTROSE 50% SYRINGE 50 ML IVP PRN (18:51)
--- NOTE | 2025-04-09 18:57 | P.HPIM ---
History of Present Illness H&P Date: 04/09/25 Chief Complaint: Jaundice Pleasant 64-year-old patient who follows with Dr. Neves. Chronic medical conditions include CHF, COPD, diabetes, hypertension hyperlipidemia cirrhosis [place] about 40 years ago, obstructive sleep apnea does not use a CPAP angioplasty left lower extremity. Patient was here in the hospital about 2 weeks ago was not. With IV Lasix for CHF. Patient was discharged on March 18. On March 17 underwent a cardiac catheterization by Dr. Kat was found to have normal coronary arteries. 2D echo showed a EF of 2024%. Severely increased left ventricular mass. Severe pulmonary hypertension with moderate right ventricular dilatation. Mild to moderate MR. Mild to moderate TR. Patient also found to be atrial fibrillation. Also underlying chronic kidney disease with creatinine of 1.49 in November 2024. Subsequent to that patient was admitted to [facility] where he was diagnosed with cirrhosis. Underwent paracentesis for about 4 L. Was discharged about 7 days ago. Patient was sent in by his home caregiver who felt the patient was jaundiced. Patient states his baseline lower extremity edema is unchanged. Abdominal distention is also unchanged. He is placing has some orthopnea is also pretty much unchanged. Patient started on IV Bumex in the ER. Patient scheduled for repeat paracentesis on Saturday. Patient's appetite is fair. No change in bowel pattern. Review of systems: GEN.: A bit tired EYES: None HEENT: None NECK: None RESPIRATORY: None CARDIOVASCULAR: Edema, some orthopnea GASTROINTESTINAL: None GENITOURINARY: [Scrotal swelling MUSCULOSKELETAL: None LYMPHATICS: None HEMATOLOGICAL: None PSYCHIATRY: None NEUROLOGICAL: None Social history: Non-smoker. Alcohol occasionally. 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 Physical examination: VITAL SIGNS: 97.7, 84, 16, 104 x 85, 93% room air GENERAL: BMI 40.7, sitting at edge of bed not in distress. EYES: Pupils equal. Conjunctiva allison l. HEENT: External appearance of nose and ears normal, oral cavity grossly normal. NECK: JVD not raised; masses not palpable. HEART: First and second heart sounds are normal edema present. LUNGS: Respiratory rate normal; decreased breath sound. ABDOMEN: Soft, but distended nontender, liver spleen not palpable, no masses p alpable, scrotal swelling. PSYCH: Alert and oriented x3; mood and affect allison l. MUSCULOSKELETAL:No Clubbing/cyanosis;muscles-grossly intact. OA NEUROLOGICAL: Cranial nerves grossly intact; no facial asymmetry, power and sensation grossly intact. LYMPHATICS: No lymph nodes palpable in the axilla and neck Extremities: Lower extremity edema. Stasis dermatitis. INVESTIGATIONS, reviewed in the clinical context: April 09, 2025: Potassium 4.9 BUN 42 creatinine 1.84 white count 9.1 hemoglobin 14.1 platelet 385. Total bilirubin 1.4 Troponin I 0.041, 0.046, 0.043 Chest x-ray film personally reviewed by me-cardiomegaly. Questionable venous prominence Abdominal ultrasound: Mild ascites March 12, 2025: Creatinine 1.83 Assessment plan: - Some element of acute on chronic congestive heart failure from both systolic and diastolic dysfunction. EF 20 to 25%. IV Bumex 2 mg twice daily. I's and O's. Follow renal function. Coreg. Entresto. Aldactone. -Newly diagnosed cirrhosis. Likely cryptogenic. Denies any history of alcoholism. This was diagnosed a week ago at [facility]. He is can a follow-up at the same. He had 4 L of paracentesis done over a week ago. Ultrasound currently shows minimal ascites. - Chronic kidney disease. Combination of cardiorenal syndrome. March 12, 2025: Creatinine 1.83 - Cor pulmonale, chronic - Severe secondary pulmonary hypertension - Chronic venous stasis dermatitis lower extremity Dressing - Mild to moderate MR, mild to moderate TR - Diabetes mellitus type 2, chronically requiring insulin Resume home medications. Sliding scale with coverage - Atrial flutter fibrillation/atrial tachycardia Eliquis. Amiodarone. - Morbid obesity BMI 40.7 - COPD non-smoker Combivent - Full code discussed with the patient. Present time he wants to be a full code Care was discussed with the patient. Cardiology consulted. Past Medical History Past Medical History: Chest Pain / Angina, Heart Failure, COPD, Diabetes Mellitus, Hyperlipidemia, Hypertension, Liver Disease, Myocardial Infarction ([place]), Sleep Apnea/CPAP/BIPAP Additional Past Medical History / Comment(s): wound rt [place], liver cirrhosis Last Myocardial Infarction Date:: 1987 History of Any Multi-Drug Resistant Organisms: None Reported Past Surgical History: Adenoidectomy, Cholecystectomy, Heart Catheterization, To nsillectomy Additional Past Surgical History / Comment(s): UPP, mastoidectomy, septoplasty, stent in left leg, ablation Past Anesthesia/Blood Transfusion Reactions: No Reported Reaction Past Psychological History: No Psychological Hx Reported Smoking Status: Never smoker Past Alcohol Use History: Occasional Past Drug Use History: None Reported - Past Family History Mother Family Medical History: No Reported History Father Family Medical History: Hypertension Medications and Allergies Home Medications Medication Instructions Recorded Confirmed Type Ipratropium/Albuterol Sulfate 2 puff INHALATION RT-DAILY 06/02/15 04/08/25 History [Combivent Respimat Inhaler] Dulaglutide [Trulicity] 0.75 mg SQ BAIN 03/12/25 04/08/25 History Empagliflozin [Jardiance] 10 mg PO DAILY 03/12/25 04/08/25 History Insulin Glargine,Hum.rec.anlog 65 units SQ HS 03/12/25 04/08/25 History [Toujazzy Solostar] metFORMIN HCL ER [Glucophage XR] 1,000 mg PO W/SUPPER 03/12/25 04/08/25 History Amiodarone [Cordarone] 200 mg PO BID 30 Days #60 tab 03/18/25 04/08/25 Rx Apixaban [Eliquis] 5 mg PO BID 30 Days #60 tab 03/18/25 04/08/25 Rx Aspirin 81 mg PO DAILY 30 Days #30 tab 03/18/25 04/08/25 Rx Atorvastatin [Lipitor] 40 mg PO HS 30 Days #30 tab 03/18/25 04/08/25 Rx Bumetanide [BUMEX] 1 mg PO BID@0900,1600 30 Days #60 03/18/25 04/08/25 Rx tab Spironolactone [Aldactone] 12.5 mg PO DAILY 30 Days #30 tab 03/18/25 04/08/25 Rx Budesonide/Formoterol Fumarate 2 puff INHALATION RT-BID 04/08/25 04/08/25 H istory [Symbicort 80-4.5 Mcg Inhaler] Sacubitril/Valsartan [Entresto 24 0.5 tab PO BID 04/08/25 04/08/25 History mg-26 mg Tablet] carvediloL [Coreg] 3.125 mg PO BID 04/08/25 04/08/25 History Allergies Allergy/AdvReac Type Severity Reaction Status Date / Time No Known Allergies Allergy Verified 04/08/25 20:47 Physical Exam Vitals: Vital Signs Temp Pulse Pulse Resp BP BP Pulse Ox 04/09/25 10:19 82 19 119/83 97 04/09/25 08:58 80 04/09/25 08:50 82 04/09/25 08:24 97.7 F 84 161 H 104/85 93 L 04/09/25 02:00 76 04/09/25 01:26 98.6 F 76 18 127/93 98 04/08/25 23:19 118/93 04/08/25 22:08 80 106/78 97 04/08/25 21:28 76 04/08/25 19:02 82 18 105/87 96 04/08/25 18:38 80 18 108/72 96 04/08/25 16:47 97.8 F 82 16 109/76 98 Intake and Output 04/08/25 04/09/25 04/09/25 22:59 06:59 14:59 Output Total 500 Balance -500 Output: Urine 500 Other: Voiding Method Urinal Weight 136.078 kg Results CBC & Chem 7: 04/08/25 17:32 04/09/25 11:26 Labs: Abnormal Lab Results - Last 24 Hours (Table) 04/08/25 04/08/25 04/08/25 Range/Units 17:32 17:32 17:32 RBC 6.78 H (4.40-5.60) 10*6/uL MCV 70.1 L (80.0-97.0) fL MCH 20.8 L (27.0-32.0) pg MCHC 29.7 L (32.0-37.0) g/dL Immature Gran # 0.06 H (0.00-0.04) 10*3/uL Lymphocytes # 0.71 L (0.90-5.00) 10*3/uL Monocytes # 1.11 H (0.20-1.00) 10*3/uL Basophils # 0.17 H (0.00-0.10) 10*3/uL PT 14.0 H (10.0-12.5) sec INR 1.3 H (<1.2) Sodium 135 L (137-145) mmol/L BUN 43 H (9-20) mg/dL Creatinine 1.94 H (0.66-1.25) mg/dL Glucose 155 H (74-99) mg/dL POC Glucose (mg/dL) (70-110) mg/dL Hemoglobin A1c (<=6.0) % Total Bilirubin 1.4 H (0.2-1.3) mg/dL Delta Bilirubin (0.0-0.2) mg/dL Alkaline Phosphatase 161 H (38-126) U/L Troponin I (0.000-0.034) ng/mL Total Protein 6.2 L (6.3-8.2) g/dL Albumin 3.4 L (3.5-5.0) g/dL 04/08/25 04/08/25 04/08/25 Range/Units 17:32 17:32 20:38 RBC (4.40-5.60) 10*6/uL MCV (80.0-97.0) fL MCH (27.0-32.0) pg MCHC (32.0-37.0) g/dL Immature Gran # (0.00-0.04) 10*3/uL Lymphocytes # (0.90-5.00) 10*3/uL Monocytes # (0.20-1.00) 10*3/uL Basophils # (0.00-0.10) 10*3/uL PT (10.0-12.5) sec INR (<1.2) Sodium (137-145) mmol/L BUN 43 H (9-20) mg/dL Creatinine 1.94 H (0.66-1.25) mg/dL Glucose 125 H (74-99) mg/dL POC Glucose (mg/dL) (70-110) mg/dL Hemoglobin A1c (<=6.0) % Total Bilirubin 1.4 H 1.4 H (0.2-1.3) mg/dL Delta Bilirubin 0.7 H (0.0-0.2) mg/dL Alkaline Phosphatase 165 H (38-126) U/L Troponin I 0.041 H* (0.000-0.034) ng/mL Total Protein (6.3-8.2) g/dL Albumin (3.5-5.0) g/dL 04/08/25 04/08/25 04/08/25 Range/Units 20:38 22:45 23:53 RBC (4.40-5.60) 10*6/uL MCV (80.0-97.0) fL MCH (27.0-32.0) pg MCHC (32.0-37.0) g/dL Immature Gran # (0.00-0.04) 10*3/uL Lymphocytes # (0.90-5.00) 10*3/uL Monocytes # (0.20-1.00) 10*3/uL Basophils # (0.00-0.10) 10*3/uL PT (10.0-12.5) sec INR (<1.2) Sodium (137-145) mmol/L BUN (9-20) mg/dL Creatinine (0.66-1.25) mg/dL Glucose (74-99) mg/dL POC Glucose (mg/dL) 112 H (70-110) mg/dL Hemoglobin A1c (<=6.0) % Total Bilirubin (0.2-1.3) mg/dL Delta Bilirubin (0.0-0.2) mg/dL Alkaline Phosphatase (38-126) U/L Troponin I 0.046 H* 0.043 H* (0.000-0.034) ng/mL Total Protein (6.3-8.2) g/dL Albumin (3.5-5.0) g/dL 04/09/25 04/09/25 Range/Units 06:03 06:16 RBC (4.40-5.60) 10*6/uL MCV (80.0-97.0) fL MCH (27.0-32.0) pg MCHC (32.0-37.0) g/dL Immature Gran # (0.00-0.04) 10*3/uL Lymphocytes # (0.90-5.00) 10*3/uL Monocytes # (0.20-1.00) 10*3/uL Basophils # (0.00-0.10) 10*3/uL PT (10.0-12.5) sec INR (<1.2) Sodium (137-145) mmol/L BUN (9-20) mg/dL Creatinine (0.66-1.25) mg/dL Glucose (74-99) mg/dL POC Glucose (mg/dL) 186 H (70-110) mg/dL Hemoglobin A1c 7.3 H (<=6.0) % Total Bilirubin (0.2-1.3) mg/dL Delta Bilirubin (0.0-0.2) mg/dL Alkaline Phosphatase (38-126) U/L Troponin I (0.000-0.034) ng/mL Total Protein (6.3-8.2) g/dL Albumin (3.5-5.0) g/dL Thrombosis Risk Factor Assmnt - Choose All That Apply Any of the Below Risk Factors Present?: Yes Each Factor Represents 1 point: Obesity (BMI >25) Other Risk Factors: Yes Each Risk Factor Represents 2 Points: Age 61-74 years Each Risk Factor Represents 3 Points: History of DVT/PE Thrombosis Risk Factor Assessment Total Risk Factor Score: 6 Thrombosis Risk Factor Assessment Level: High Risk
[2025-04-09 20:19] LABS: Glucose,Whole Blood 155 mg/dL (70-110)
[2025-04-09] MEDS: INSULIN GLARGINE (LANTUS) 100 UNIT/ML SYR SQ SCH (20:41)
[2025-04-10 05:55] LABS: Glucose,Whole Blood 159 mg/dL (70-110)
[2025-04-10 09:38] LABS: African American GFR (CKD) 42 (>60 ml/min/1.73 sqM); Anion Gap 10 mmol/L; Blood Urea Nitrogen 40 mg/dL (9-20); Calcium 9.1 mg/dL (8.4-10.2); Carbon Dioxide 28 mmol/L (22-30); Chloride 99 mmol/L (98-107); Glucose 97 mg/dL (74-99); Non-African American GFR(CKD) 36 (>60 ml/min/1.73 sqM); Potassium 3.9 mmol/L (3.5-5.1); Sodium 137 mmol/L (137-145)
--- NOTE | 2025-04-10 11:08 | P.PN ---
Subjective HISTORY OF PRESENT ILLNESS: This is a 64-year-old male patient of Dr. Kat with past medical history of nonischemic cardiomyopathy with EF of 20 to 25%, paroxysmal atrial flutter, valvular heart disease with moderate MR, moderate TR, severe pulmonary hypertension, diabetes, hypertension, dyslipidemia, chronic kidney disease and morbid obesity. Patient was recently established with Dr. Kat after a hospitalization in February at which time he was treated for heart failure. Patient states that he was also hospitalized last week at [facility] and was in atrial flutter with plan for ISAAC and cardioversion but for some reason this was canceled and patient is scheduled for outpatient ISAAC and cardioversion with Dr. Kat on 04/16. During that hospitalization, patient apparently underwent paracentesis with removal of 4 L of fluid which helped his breathing. He had presented with shortness of breath. Patient has had chronic shortness of breath with worsening as well as weight gain consistent over the past 6 months. He complains of fatigue and not sleeping at night due to his shortness of breath. He states he did have improvement of his swelling while he was at [facility] except for the scrotal edema did not go down. Patient has been started on Bumex 1 mg IV every 12 hours but patient states he does not feel his symptoms are improving. Blood pressure 104/85, heart rate 81, pulse ox 93% on room air. Patient is afebrile. Patient is seen today in the emergency center waiting for a bed on the observation unit. We have requested the patient be admitted to 3 S. -EKG: Atrial tachycardia versus atrial flutter 2-1 conduction -Chest x-ray: Cardiomegaly and mild pulmonary vascular congestion. -Laboratory studies: Troponin 0.041, 0.046, 0.043. WBC 9.1, hemoglobin 14.1. Electrolytes are within normal limits. BUN 43 creatinine 1.94 which appears to be his baseline. Alkaline phosphatase 165. proBNP 7970. -Home cardiac medications: Amiodarone 200 mg twice daily, Eliquis 5 mg twice daily, aspirin 81 mg daily, a atorvastatin 40 mg at bedtime, Bumex 1 mg twice daily, Coreg 3.125 mg twice daily, Jardiance 10 mg daily, Entresto 24-26 mg half a tablet twice daily, spironolactone 12.5 mg daily. -Echocardiogram performed 03/14/2025 revealed EF of 20 to 25%, mild to moderate mitral regurgitation, severe pulmonary hypertension, mild to moderate tricuspid regurgitation, small pericardial effusion. 04/10/2025 Patient examined this morning at the bedside. Patient is currently sitting up in the chair. Patient denies chest pain or pressure. He reports shortness of breath this morning. He remains on IV Lasix. PHYSICAL EXAM: VITAL SIGNS: Reviewed. GENERAL: Well-developed in no acute distress. NECK: Supple. No JVD or thyromegaly LUNGS: Respirations even and unlabored. Lungs diminished bilaterally HEART: Irregular rate and rhythm. S1 and S2 heard. EXTREMITIES: Normal range of motion. No clubbing or cyanosis. Peripheral pulses intact. 2+ lower extremity edema ASSESSMENT: Acute on chronic systolic heart failure Flat troponins not indicative of acute coronary syndrome, type II HI secondary to oxygen supply/demand mismatch Atrial tachycardia versus atrial flutter 2-1 conduction Recent diagnosis of cirrhosis of the liver at [facility] status post paracentesis with removal of 4 L of fluid Nonischemic cardiomyopathy with EF of 20 to 25% Valvular heart disease with moderate MR, moderate TR Severe pulmonary hypertension, RVSP estimated at 56 mmHg Diabetes mellitus type 2 Hypertension Dyslipidemia Chronic kidney disease stage stage III Morbid obesity with BMI of 40 PLAN: Continue current cardiac medications Continue anticoagulation with Eliquis Continue IV diuretics with Bumex 2 mg every 12 hours Daily weights, accurate intake and output, monitoring of kidney function Continue telemetry monitoring Patient is scheduled for outpatient ISAAC and cardioversion with Dr. Kat on 04/16/2025. Possible ISAAC and cardioversion on Saturday with Dr. Kat if patient's respiratory status improves Further recommendations pending patient course Nurse practitioner note has been reviewed by physician. Signing provider agrees with the documented findings, assessment, and plan of care documented by INCINERATOR ATTENDANT as a scribe. Objective - Vital Signs Vital signs: Vital Signs Temp 97.4 F L 04/10/25 08:00 Pulse 80 04/10/25 08:42 Resp 16 04/10/25 08:00 BP 116/80 04/10/25 08:00 Pulse Ox 97 04/10/25 08:00 FiO2 Intake & Output 04/09/25 04/10/25 04/10/25 18:59 06:59 18:59 Intake Total 240 480 Output Total 925 400 Balance -685 80 Weight 140.2 kg Intake: Oral 240 480 Output: Urine 925 400 Other: Voiding Method Urinal Toilet Toilet Urinal Urinal # Voids 1 - Labs CBC & Chem 7: 04/08/25 17:32 04/10/25 07:53 Labs: Abnormal Lab Results - Last 24 Hours (Table) 04/09/25 04/09/25 04/09/25 Range/Units 11:26 11:42 18:34 BUN 42 H (9-20) mg/dL Creatinine 1.84 H (0.66-1.25) mg/dL Glucose 117 H (74-99) mg/dL POC Glucose (mg/dL) 167 H 160 H (70-110) mg/dL 04/09/25 04/10/25 04/10/25 Range/Units 20:18 05:54 07:53 BUN 40 H (9-20) mg/dL Creatinine 1.90 H (0.66-1.25) mg/dL Glucose (74-99) mg/dL POC Glucose (mg/dL) 155 H 159 H (70-110) mg/dL
[2025-04-10 11:44] LABS: Glucose,Whole Blood 147 mg/dL (70-110)
[2025-04-10 12:47] VITALS: BMI 41.9
[2025-04-10] MEDS ORDERED: ZINC OXIDE PASTE (Z-GUARD) 1 APPLIC TOPICAL PRN (14:20)
[2025-04-10] MEDS: ACETAMINOPHEN TAB 325 MG TAB PO PRN (14:45)
[2025-04-10 16:16] LABS: Glucose,Whole Blood 137 mg/dL (70-110)
--- NOTE | 2025-04-10 18:02 | P.PN ---
Progress Note - Text Progress Note Date: 04/10/25 Chief Complaint: Jaundice Pleasant 64-year-old patient who follows with Dr. Neves. Chronic medical conditions include CHF, COPD, diabetes, hypertension hyperlipidemia cirrhosis LA about 40 years ago, obstructive sleep apnea does not use a CPAP angioplasty left lower extremity. Patient was here in the hospital about 2 weeks ago was not. With IV Lasix for CHF. Patient was discharged on March 18. On March 17 underwent a cardiac catheterization by Dr. Santiagoaf was found to have normal coronary arteries. 2D echo showed a EF of 2024%. Severely increased left ventricular mass. Severe pulmonary hypertension with moderate right ventricular dilatation. Mild to mod erate MR. Mild to moderate TR. Patient also found to be atrial fibrillation. Also underlying chronic kidney disease with creatinine of 1.49 in November 2024. Subsequent to that patient was admitted to [facility] where he was diagnosed with cirrhosis. Underwent paracentesis for about 4 L. Was discharged about 7 days ago. Patient was sent in by his home caregiver who felt the patient was jaundiced. Patient states his baseline lower extremity edema is unchanged. Abdominal distention is also unchanged. He is placing has some orthopnea is also pretty much unchanged. Patient started on IV Bumex in the ER. Patient scheduled for repeat paracentesis on Saturday. Patient's appetite is fair. No change in bowel pattern. April 10: Patient remains on IV Bumex 2 mg every 12. Not much urine output. Oral intake fair. Being followed by cardiology. Patient to elevate his scrotum when lying down. Active Medications Acetaminophen (Acetaminophen Tab 325 Mg Tab) 650 mg PO Q6HR PRN PRN Reason: Fever and/ or Pain Last Admin: 04/10/25 14:45 Dose: 650 mg Albuterol/Ipratropium (Ipratropium-Albuterol 3 Ml Neb) 3 ml INHALATION RT-DAILY [facility] Last Admin: 04/10/25 08:29 Dose: 3 ml Amiodarone HCl (Amiodarone 200 Mg Tab) 200 mg PO BID [facility] Last Admin: 04/10/25 09:24 Dose: 200 mg Apixaban (Apixaban 5 Mg Tab) 5 mg PO BID [facility]; Protocol Last Admin: 04/10/25 09:24 Dose: 5 mg Aspirin (Aspirin 81 Mg) 81 mg PO DAILY [facility] Last Admin: 04/10/25 09:24 Dose: 81 mg Atorvastatin Calcium (Atorvastatin 40 Mg Tab) 40 mg PO HS [facility] Last Admin: 04/09/25 20:41 Dose: 40 mg Budesonide/Formoterol Fumarate (Symbicort 80-4.5 Mcg Inhaler) 2 puff INHALATION RT-BID [facility] Last Admin: 04/10/25 08:29 Dose: 2 puff Bumetanide (Bumetanide 0.25 Mg/Ml 4 Ml Vial) 2 mg IV Q12H [facility] Last Admin: 04/10/25 09:28 Dose: 2 mg Carvedilol (Carvedilol 3.125 Mg Tab) 3.125 mg PO BID-W/MEALS [facility] Last Admin: 04/10/25 17:07 Dose: 3.125 mg Dapagliflozin (Dapagliflozin Propanediol 5 Mg Tablet) 5 mg PO DAILY [facility] Last Admin: 04/10/25 09:24 Dose: 5 mg Dextrose/Water (Dextrose 50% Syringe 50 Ml) 25 ml IVP PER PROTOCOL PRN; Protocol PRN Reason: Hypoglycemia Dextrose/Water (Dextrose 50% Syringe 50 Ml) 50 ml IVP PER PROTOCOL PRN; Protocol PRN Reason: Hypoglycemia Insulin Glargine (Insulin Glargine (Lantus) 100 Unit/Ml Syr) [address] [facility] Last Admin: 04/09/25 20:41 Dose: 50 unit Insulin Human Lispro (Insulin Lispro (Humalog) 100 Unit/Ml 10 Ml Vl) 0 unit SQ [facility]; Protocol Last Admin: 04/10/25 17:02 Dose: Not Given Non-Formulary Medication (Dulaglutide [Trulicity]) 0.75 mg SQ BAIN [facility] Petrolatum (Zinc Oxide Paste (Z-Guard) 1 Applic) 1 applic TOPICAL Q2HR PRN; Protocol PRN Reason: Wound Healing Sacubitril/Valsartan (Sacubitril/Valsartan 24 Mg-26 Mg Tablet) 0.5 each PO BID [facility] Last Admin: 04/10/25 09:24 Dose: 0.5 each Spironolactone (Spironolactone 25 Mg Tab) 12.5 mg PO DAILY [facility] Last Admin: 04/10/25 09:24 Dose: 12.5 mg Tramadol HCl (Tramadol 50 Mg Tab) 50 mg PO QID PRN PRN Reason: Pain Social history: Non-smoker. Alcohol occasionally. 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 Physical examination: VITAL SIGNS: 97.9, 71, 16, 106 presently 507% room air GENERAL: Up in a chair, bit tired s. EYES: Pupils equal. Conjunctiva allison l. HEENT: External appearance of nose and ears normal, oral cavity grossly normal. NECK: JVD not raised; masses not palpable. HEART: First and second heart sounds are normal edema present. LUNGS: Respiratory rate normal; decreased breath sound. ABDOMEN: Soft, but distended nontender, liver spleen not palpable, no masses palpable, scrotal swelling. PSYCH: Alert and oriented x3; mood and affect allison l. MUSCULOSKELETAL:No Clubbing/cyanosis;muscles-grossly intact. OA Extremities: Lower extremity edema. Stasis dermatitis. INVESTIGATIONS, reviewed in the clinical context: April 10: Potassium 3.9 BUN 40 creatinine 1.9 April 09, 2025: Potassium 4.9 BUN 42 creatinine 1.84 white count 9.1 hemoglobin 14.1 platelet 385. Total bilirubin 1.4 Troponin I 0.041, 0.046, 0.043 Chest x-ray film personally reviewed by me-cardiomegaly. Questionable venous prominence Abdominal ultrasound: Mild ascites March 12, 2025: Creatinine 1.83 Assessment plan: - Some element of acute on chronic congestive heart failure from both systolic and diastolic dysfunction. EF 20 to 25%. IV Bumex 2 mg twice daily. I's and O's. Follow renal function. Coreg. Entresto. Aldactone. Being followed by cardiology -Recent diagnosed cirrhosis. Likely cryptogenic. Denies any history of alcoholism. This was diagnosed a week ago at [facility]. He is can a follow-up at the same. He had 4 L of paracentesis done over a week ago. Ultrasound currently shows minimal ascites. - Chronic kidney disease. Combination of cardiorenal syndrome. March 12, 2025: Creatinine 1.83 - Cor pulmonale, chronic - Severe secondary pulmonary hypertension - Chronic venous stasis dermatitis lower extremity Dressing - Mild to moderate MR, mild to moderate TR - Diabetes mellitus type 2, chronically requiring insulin Resume home medications. Sliding scale with coverage - Atrial flutter fibrillation/atrial tachycardia Eliquis. Amiodarone. - Morbid obesity BMI 40.7 - COPD non-smoker Combivent - Full code discussed with the patient. Present time he wants to be a full code Patient on Saturday to Joann Kat from cardiology for ISAAC and cardioversion. Follow-up with cardiology Past Medical History Past Medical History: Chest Pain / Angina, Heart Failure, COPD, Diabetes Mellitus, Hyperlipidemia, Hypertension, Liver Disease, Myocardial Infarction (LA), Sleep Apnea/CPAP/BIPAP Additional Past Medical History / Comment(s): wound rt [place], liver cirrhosis Last Myocardial Infarction Date:: 1987 History of Any Multi-Drug Resistant Organisms: None Reported Past Surgical History: Adenoidectomy, Cholecystectomy, Heart Catheterization, Tonsillectomy Additional Past Surgical History / Comment(s): UPP, mastoidectomy, septoplasty, stent in left leg, ablation Past Anesthesia/Blood Transfusion Reactions: No Reported Reaction Past Psychological History: No Psychological Hx Reported Smoking Status: Never smoker Past Alcohol Use History: Occasional Past Drug Use History: None Reported
[2025-04-10] MEDS: traMADol 50 MG TAB PO PRN (18:16)
[2025-04-10 20:10] LABS: Glucose,Whole Blood 153 mg/dL (70-110)
[2025-04-11 06:12] LABS: Glucose,Whole Blood 145 mg/dL (70-110)
[2025-04-11 07:58] LABS: African American GFR (CKD) 44 (>60 ml/min/1.73 sqM); Anion Gap 9 mmol/L; Blood Urea Nitrogen 40 mg/dL (9-20); Calcium 9.4 mg/dL (8.4-10.2); Carbon Dioxide 31 mmol/L (22-30); Chloride 99 mmol/L (98-107); Glucose 108 mg/dL (74-99); Non-African American GFR(CKD) 38 (>60 ml/min/1.73 sqM); Potassium 3.8 mmol/L (3.5-5.1); Sodium 139 mmol/L (137-145)
[2025-04-11] MEDS: NON FORMULARY DRUG (Dulaglutide [Trulicity] 0.75 MG/0.5 ML Each) SQ SCH (08:10)
[2025-04-11] MEDS: SPIRONOLACTONE 25 MG TAB PO SCH (08:18)
[2025-04-11] MEDS ORDERED: MIDAZOLAM 2 MG/2 ML VIAL IV PRN (09:43)
[2025-04-11] MEDS ORDERED: fentaNYL (PF) 50 MCG/ML 2 ML AMP IVP PRN (09:43)
--- NOTE | 2025-04-11 09:43 | P.PN ---
Subjective HISTORY OF PRESENT ILLNESS: This is a 64-year-old male patient of Dr. Kat with past medical history of nonischemic cardiomyopathy with EF of 20 to 25%, paroxysmal atrial flutter, valvular heart disease with moderate MR, moderate TR, severe pulmonary hypertension, diabetes, hypertension, dyslipidemia, chronic kidney disease and morbid obesity. Patient was recently established with Dr. Kat after a hospitalization in February at which time he was treated for heart failure. Patient states that he was also hospitalized last week at [facility] and was in atrial flutter with plan for ISAAC and cardioversion but for some reason this was canceled and patient is scheduled for outpatient ISAAC and cardioversion with Dr. Kat on 04/16. During that hospitalization, patient apparently underwent paracentesis with removal of 4 L of fluid which helped his breathing. He had presented with shortness of breath. Patient has had chronic shortness of breath with worsening as well as weight gain consistent over the past 6 months. He complains of fatigue and not sleeping at night due to his shortness of breath. He states he did have improvement of his swelling while he was at [facility] except for the scrotal edema did not go down. Patient has been started on Bumex 1 mg IV every 12 hours but patient states he does not feel his symptoms are improving. Blood pressure 104/85, heart rate 81, pulse ox 93% on room air. Patient is afebrile. Patient is seen today in the emergency center waiting for a bed on the observation unit. We have requested the patient be admitted to 3 S. -EKG: Atrial tachycardia versus atrial flutter 2-1 conduction -Chest x-ray: Cardiomegaly and mild pulmonary vascular congestion. -Laboratory studies: Troponin 0.041, 0.046, 0.043. WBC 9.1, hemoglobin 14.1. Electrolytes are within normal limits. BUN 43 creatinine 1.94 which appears to be his baseline. Alkaline phosphatase 165. proBNP 7970. -Home cardiac medications: Amiodarone 200 mg twice daily, Eliquis 5 mg twice daily, aspirin 81 mg daily, a atorvastatin 40 mg at bedtime, Bumex 1 mg twice daily, Coreg 3.125 mg twice daily, Jardiance 10 mg daily, Entresto 24-26 mg half a tablet twice daily, spironolactone 12.5 mg daily. -Echocardiogram performed 03/14/2025 revealed EF of 20 to 25%, mild to moderate mitral regurgitation, severe pulmonary hypertension, mild to moderate tricuspid regurgitation, small pericardial effusion. 04/10/2025 Patient examined this morning at the bedside. Patient is currently sitting up in the chair. Patient denies chest pain or pressure. He reports shortness of breath this morning. He remains on IV Bumex. 04/11/2025 Patient examined this morning at bedside. Patient currently denies chest pain or pressure. She does report shortness of breath although improved from yesterday. He remains on IV Bumex. PHYSICAL EXAM: VITAL SIGNS: Reviewed. GENERAL: Well-developed in no acute distress. NECK: Supple. No JVD or thyromegaly LUNGS: Respirations even and unlabored. Lungs diminished bilaterally HEART: Irregular rate and rhythm. S1 and S2 heard. EXTREMITIES: Normal range of motion. No clubbing or cyanosis. Peripheral pulses intact. 2+ lower extremity edema ASSESSMENT: Acute on chronic systolic heart failure Flat troponins not indicative of acute coronary syndrome, type II NE secondary to oxygen supply/demand mismatch Atrial tachycardia versus atrial flutter 2-1 conduction Recent diagnosis of cirrhosis of the liver at [facility] status post paracentesis with removal of 4 L of fluid Nonischemic cardiomyopathy with EF of 20 to 25% Valvular heart disease with moderate MR, moderate TR Severe pulmonary hypertension, RVSP estimated at 56 mmHg Diabetes mellitus type 2 Hypertension Dyslipidemia Chronic kidney disease stage stage III Morbid obesity with BMI of 40 PLAN: Continue current cardiac medications Continue anticoagulation with Eliquis Continue IV diuretics with Bumex 2 mg every 12 hours Daily weights, accurate intake and output, monitoring of kidney function Continue telemetry monitoring Patient is scheduled for outpatient ISAAC and cardioversion with Dr. Kat on 04/16/2025. Will schedule patient for ISAAC and cardioversion tomorrow with Dr. Kat. Further recommendations pending patient course Nurse practitioner note has been reviewed by physician. Signing provider agrees with the documented findings, assessment, and plan of care documented by BLOW MOLD TECHNICIAN as a scribe. Objective - Vital Signs Vital signs: Vital Signs Temp 97.2 F L 04/11/25 08:00 Pulse 80 04/11/25 08:56 Resp 16 04/11/25 08:00 BP 113/75 04/11/25 08:00 Pulse Ox 97 04/11/25 08:00 FiO2 Intake & Output 04/10/25 04/11/25 04/11/25 18:59 06:59 18:59 Intake Total 1210 20 730 Output Total 1275 950 Balance -65 -930 730 Weight 140.2 kg 137.8 kg Intake: IV 10 20 10 Invasive Line 1 10 20 10 Oral 1200 720 Output: Urine 1275 950 Other: Voiding Method Toilet Toilet Toilet Urinal Urinal Urinal # Voids 1 - Labs CBC & Chem 7: 04/08/25 17:32 04/11/25 06:46 Labs: Abnormal Lab Results - Last 24 Hours (Table) 04/10/25 04/10/25 04/10/25 Range/Units 11:43 16:14 20:09 Carbon Dioxide (22-30) mmol/L BUN (9-20) mg/dL Creatinine (0.66-1.25) mg/dL Glucose (74-99) mg/dL POC Glucose (mg/dL) 147 H 137 H 153 H (70-110) mg/dL 04/11/25 04/11/25 Range/Units 06:11 06:46 Carbon Dioxide 31 H (22-30) mmol/L BUN 40 H (9-20) mg/dL Creatinine 1.80 H (0.66-1.25) mg/dL Glucose 108 H (74-99) mg/dL POC Glucose (mg/dL) 145 H (70-110) mg/dL
--- NOTE | 2025-04-11 09:54 | P.PN ---
Progress Note - Text Progress Note Date: 04/11/25 Chief Complaint: Jaundice Pleasant 64-year-old patient who follows with Dr. Neves. Chronic medical conditions include CHF, COPD, diabetes, hypertension hyperlipidemia cirrhosis [place] about 40 years ago, obstructive sleep apnea does not use a CPAP angioplasty left lower extremity. Patient was here in the hospital about 2 weeks ago was not. With IV Lasix for CHF. Patient was discharged on March 18. On March 17 underwent a cardiac catheterization by Dr. Kat was found to have normal coronary arteries. 2D echo showed a EF of 2024%. Severely increased left ventricular mass. Severe pulmonary hypertension with moderate right ventricular dilatation. Mild to mod erate MR. Mild to moderate TR. Patient also found to be atrial fibrillation. Also underlying chronic kidney disease with creatinine of 1.49 in November 2024. Subsequent to that patient was admitted to [facility] where he was diagnosed with cirrhosis. Underwent paracentesis for about 4 L. Was discharged about 7 days ago. Patient was sent in by his home caregiver who felt the patient was jaundiced. Patient states his baseline lower extremity edema is unchanged. Abdominal distention is also unchanged. He is placing has some orthopnea is also pretty much unchanged. Patient started on IV Bumex in the ER. Patient scheduled for repeat paracentesis on Saturday. Patient's appetite is fair. No change in bowel pattern. April 10: Patient remains on IV Bumex 2 mg every 12. Not much urine output. Oral intake fair. Being followed by cardiology. Patient to elevate his scrotum when lying down. April 11: Remains on IV Bumex 2 mg every 12. Better urine output. Consult nephrology. Patient scheduled for ISAAC/cardioversion by Dr. Kat tomorrow. Oral intake fair. Ultram was added for scrotal discomfort. Will add Diamox for some metabolic alkalosis Active Medications Acetaminophen (Acetaminophen Tab 325 Mg Tab) 650 mg PO Q6HR PRN PRN Reason: Fever and/ or Pain Last Admin: 04/11/25 08:09 Dose: 650 mg Albuterol/Ipratropium (Ipratropium-Albuterol 3 Ml Neb) 3 ml INHALATION RT-DAILY [facility] Last Admin: 04/11/25 08:43 Dose: 3 ml Amiodarone HCl (Amiodarone 200 Mg Tab) 200 mg PO BID [facility] Last Admin: 04/11/25 08:09 Dose: 200 mg Apixaban (Apixaban 5 Mg Tab) 5 mg PO BID [facility]; Protocol Last Admin: 04/11/25 08:09 Dose: 5 mg Aspirin (Aspirin 81 Mg) 81 mg PO DAILY [facility] Last Admin: 04/11/25 08:09 Dose: 81 mg Atorvastatin Calcium (Atorvastatin 40 Mg Tab) 40 mg PO [facility] Last Admin: 04/10/25 20:03 Dose: 40 mg Budesonide/Formoterol Fumarate (Symbicort 80-4.5 Mcg Inhaler) 2 puff INHALATION RT-BID [facility] Last Admin: 04/11/25 08:44 Dose: 2 puff Bumetanide (Bumetanide 0.25 Mg/Ml 4 Ml Vial) 2 mg IV Q12H [facility] Last Admin: 04/11/25 08:10 Dose: 2 mg Carvedilol (Carvedilol 3.125 Mg Tab) 3.125 mg PO BID-W/MEALS [facility] Last Admin: 04/11/25 06:24 Dose: 3.125 mg Dapagliflozin (Dapagliflozin Propanediol 5 Mg Tablet) 5 mg PO DAILY [facility] Last Admin: 04/11/25 08:09 Dose: 5 mg Dextrose/Water (Dextrose 50% Syringe 50 Ml) 25 ml IVP PER PROTOCOL PRN; Protocol PRN Reason: Hypoglycemia Dextrose/Water (Dextrose 50% Syringe 50 Ml) 50 ml IVP PER PROTOCOL PRN; Protocol PRN Reason: Hypoglycemia Fentanyl Citrate (Fentanyl (Pf) 50 Mcg/Ml 2 Ml Amp) 50 mcg IVP ONCE PRN PRN Reason: Pre-Op Stop: 04/12/25 03:43 Insulin Glargine (Insulin Glargine (Lantus) 100 Unit/Ml Syr) 50 unit SQ [facility] Last Admin: 04/10/25 20:03 Dose: 50 unit Insulin Human Lispro (Insulin Lispro (Humalog) 100 Unit/Ml 10 Ml Vl) 0 unit SQ [facility]; Protocol Last Admin: 04/11/25 06:14 Dose: Not Given Midazolam HCl (Midazolam 2 Mg/2 Ml Vial) 1 mg IV ONCE PRN PRN Reason: Pre-Op Stop: 04/12/25 03:43 Non-Formulary Medication (Dulaglutide [Trulicity]) 0.75 mg SQ [facility] Last Admin: 04/11/25 08:10 Dose: Not Given Nystatin (Nystatin 100,000 Unit/Gm Powd 15 Gm) 1 applic TOPICAL BID [facility]; Protocol Petrolatum (Zinc Oxide Paste (Z-Guard) 1 Applic) 1 applic TOPICAL Q2HR PRN; Protocol PRN Reason: Wound Healing Sacubitril/Valsartan (Sacubitril/Valsartan 24 Mg-26 Mg Tablet) 0.5 each PO BID [facility] Last Admin: 04/11/25 08:09 Dose: 0.5 each Spironolactone (Spironolactone 25 Mg Tab) 25 mg PO DAILY [facility] Last Admin: 04/11/25 08:18 Dose: 25 mg Tramadol HCl (Tramadol 50 Mg Tab) 50 mg PO QID PRN PRN Reason: Pain Last Admin: 04/11/25 04:30 Dose: 50 mg Social history: Non-smoker. Alcohol occasionally. 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 Physical examination: VITAL SIGNS: 97.2, 67, 16, 130 mL 75, 97% room air GENERAL: Sitting over the edge of the bed EYES: Pupils equal. Conjunctiva allison l. HEENT: External appearance of nose and ears normal, oral cavity grossly normal. NECK: JVD not raised; masses not palpable. HEART: First and second heart sounds are normal edema present. LUNGS: Respiratory rate normal; decreased breath sound. ABDOMEN: Soft, but distended nontender, liver spleen not palpable, no masses palpable, scrotal swelling. PSYCH: Alert and oriented x3; mood and affect allison l. MUSCULOSKELETAL:No Clubbing/cyanosis;muscles-grossly intact. OA Extremities: Lower extremity edema. Stasis dermatitis. Currently wrapped up with Kemar wrap INVESTIGATIONS, reviewed in the clinical context: April 11: Potassium 3.8 BUN 40 creatinine 1.80 bicarb April 10: Potassium 3.9 BUN 40 creatinine 1.9 April 09, 2025: Potassium 4.9 BUN 42 creatinine 1.84 white count 9.1 hemoglobin 14.1 platelet 385. Total bilirubin 1.4 Troponin I 0.041, 0.046, 0.043 Chest x-ray film personally reviewed by me-cardiomegaly. Questionable venous prominence Abdominal ultrasound: Mild ascites March 12, 2025: Creatinine 1.83 Assessment plan: - Some element of acute on chronic congestive heart failure from both systolic and diastolic dysfunction. EF 20 to 25%. IV Bumex 2 mg twice daily. I's and O's. Follow renal function. Coreg. Entresto. Aldactone. Being followed by cardiology -Recent diagnosed cirrhosis. Likely cryptogenic. Denies any history of alcoholism. This was diagnosed a week ago at [facility]. He is can a follow-up at the same. He had 4 L of paracentesis done over a week ago. Ultrasound currently shows minimal ascites. - Chronic kidney disease. Combination of cardiorenal syndrome. March 12, 2025: Creatinine 1.83 - Metabolic alkalosis from diuresis Add Diamox - Cor pulmonale, chronic - Severe secondary pulmonary hypertension - Chronic venous stasis dermatitis lower extremity Dressing - Mild to moderate MR, mild to moderate TR - Diabetes mellitus type 2, chronically requiring insulin Resume home medications. Sliding scale with coverage - Atrial flutter fibrillation/atrial tachycardia Eliquis. Amiodarone. Pending ISAAC/cardioversion by Dr. Kat tomorrow - Morbid obesity BMI 40.7 - COPD non-smoker Combivent - Full code discussed with the patient. Present time he wants to be a full code Saturday, i Dr. Kat from cardiology for ISAAC and cardioversion. Continue IV Bumex. Past Medical History Past Medical History: Chest Pain / Angina, Heart Failure, COPD, Diabetes Mellitus, Hyperlipidemia, Hypertension, Liver Disease, Myocardial Infarction ([place]), Sleep Apnea/CPAP/BIPAP Additional Past Medical History / Comment(s): wound rt talley, liver cirrhosis Last Myocardial Infarction Date:: 1987 History of Any Multi-Drug Resistant Organisms: None Reported Past Surgical History: Adenoidectomy, Cholecystectomy, Heart Catheterization, Tonsillectomy Additional Past Surgical History / Comment(s): UPP, mastoidectomy, septoplasty, stent in left leg, ablation Past Anesthesia/Blood Transfusion Reactions: No Reported Reaction Past Psychological History: No Psychological Hx Reported Smoking Status: Never smoker Past Alcohol Use History: Occasional Past Drug Use History: None Reported
[2025-04-11 11:40] LABS: Glucose,Whole Blood 115 mg/dL (70-110)
[2025-04-11] MEDS: NYSTATIN 100,000 UNIT/GM POWD 15 GM TOPICAL SCH (12:14)
[2025-04-11] MEDS: acetaZOLAMIDE 250 MG TAB PO SCH (12:14)
[2025-04-11 16:33] LABS: Glucose,Whole Blood 87 mg/dL (70-110)
--- NOTE | 2025-04-11 19:15 | P.NPCON ---
History of Present Illness - Reason for Consult Consult date: 04/11/25 chronic renal failure - History of Present Illness 64-year-old male seen in renal consultation for chronic kidney disease. Patient has chronic kidney disease stage IIIa with creatinine 1.49 dated December 24, 2024. seems it progressed to stage 3b on most recent admission in February 2025 with cr. ~1.8, he had cardiac cath which showed normal coronories, ISAAC which showed EF 20-25% Creatinine this admission seems to be around baseline. Patient came to the hospital due to worsening scrotal and LE edema. He is currently eder ntained on IV Bumex. He is also on Farxiga. Additionally he is also on Entresto and Aldactone by cardiology. He denies chest pain. Denies gross hematuria or dysuria. Admits to occasional use of NSAIDs. He does have history of diabetes. per chart review the patient was admitted to [facility] where he was diagnosed with cirrhosis. he underwent paracentesis for about 4 L. Was discharged about 7 days ago. Past Medical History Past Medical History: Chest Pain / Angina, Heart Failure, COPD, Diabetes Mellitus, Hyperlipidemia, Hypertension, Liver Disease, Myocardial Infarction ([place]), Sleep Apnea/CPAP/BIPAP Additional Past Medical History / Comment(s): wound rt [place], liver cirrhosis Last Myocardial Infarction Date:: 1987 History of Any Multi-Drug Resistant Organisms: None Reported Past Surgical History: Adenoidectomy, Cholecystectomy, Heart Catheterization, Tonsillectomy Additional Past Surgical History / Comment(s): UPP, mastoidectomy, septoplasty, stent in left leg, ablation Past Anesthesia/Blood Transfusion Reactions: No Reported Reaction Past Psychological History: No Psychological Hx Reported Smoking Status: Never smoker Past Alcohol Use History: Occasional Past Drug Use History: None Reported - Past Family History Mother Family Medical History: No Reported History Father Family Medical History: Hypertension Medications and Allergies Home Medications Medication Instructions Recorded Confirmed Type Ipratropium/Albuterol Sulfate 2 puff INHALATION RT-DAILY 06/02/15 04/08/25 History [Combivent Respimat Inhaler] Dulaglutide [Trulicity] 0.75 mg SQ BAIN 03/12/25 04/08/25 History Empagliflozin [Jardiance] 10 mg PO DAILY 03/12/25 04/08/25 History Insulin Glargine,Hum.rec.anlog 65 units SQ HS 03/12/25 04/08/25 History [Toujazzy Solostar] Amiodarone [Cordarone] 200 mg PO BID 30 Days #60 tab 03/18/25 04/08/25 Rx Apixaban [Eliquis] 5 mg PO BID 30 Days #60 tab 03/18/25 04/08/25 Rx Aspirin 81 mg PO DAILY 30 Days #30 tab 03/18/25 04/08/25 Rx Atorvastatin [Lipitor] 40 mg PO HS 30 Days #30 tab 03/18/25 04/08/25 Rx Bumetanide [BUMEX] 1 mg PO BID@0900,1600 30 Days #60 03/18/25 04/08/25 Rx tab Spironolactone [Aldactone] 12.5 mg PO DAILY 30 Days #30 tab 03/18/25 04/08/25 Rx Budesonide/Formoterol Fumarate 2 puff INHALATION RT-BID 04/08/25 04/08/25 History [Symbicort 80-4.5 Mcg Inhaler] Sacubitril/Valsartan [Entresto 24 0.5 tab PO BID 04/08/25 04/08/25 History mg-26 mg Tablet] carvediloL [Coreg] 3.125 mg PO BID 04/08/25 04/08/25 History Allergies Allergy/AdvReac Type Severity Reaction Status Date / Time No Known Allergies Allergy Verified 04/08/25 20:47 Physical Exam Vitals: Vital Signs Temp Pulse Pulse Resp BP BP Pulse Ox 04/11/25 08:56 80 04/11/25 08:44 78 04/11/25 08:00 97.2 F L 67 16 113/75 97 04/11/25 04:31 97.9 F 79 20 115/78 97 04/10/25 23:41 98.2 F 74 20 131/82 96 04/10/25 19:36 98 F 78 20 103/73 97 04/10/25 15:52 97.9 F 71 16 106/75 97 04/10/25 12:03 69 20 119/70 96 Intake and Output 04/10/25 04/11/25 04/11/25 22:59 06:59 14:59 Intake Total 490 10 730 Output Total 475 950 Balance 15 -940 730 Intake: IV 10 10 10 Invasive Line 1 10 10 10 Oral 480 720 Output: Urine 475 950 Other: Voiding Method Toilet Toilet Toilet Urinal Urinal Urinal # Voids 1 Weight 137.8 kg General: No acute distress. HEENT: Head exam is unremarkable. LUNGS: No audible rhonchi or wheezes. HEART: Rate and Rhythm are regular. ABDOMEN and Genitourinary: Obese, distended, nontender. + scrotal edema EXTREMITITES: + edema and blisters of the toes, legs are wrapped with bandage. Chronic changes noted. Results - Lab Results Most recent lab results Calcium 9.4 mg/dL (8.4-10.2) 04/11/25 06:46 04/08/25 17:32 04/11/25 06:46 Assessment and Plan Assessment: 1. Chronic kidney disease stage 3b, recurrent AKIs likely due to cardiorenal syndrome. Creatinine stable ~ 1.8 this admission. 2. Cardiomyopathy ejection fraction of 20 to 25% with mild to moderate mitral and tricuspid regurgitation. admitted with decompensated HF 3. Severe pulmonary hypertension. 4. Volume overload. getting IV diuretics , cardiology consulted 5. A-fib. rate controlled Plan: stable renal function, agree with IV Bumex. Diamox is added Continue SGLT2 inhibitor, Entresto and Aldactone. monitor UO closely, limit fluids intake to 1.5 L and sodium intake to 2 g/ day check weight daily Avoid nephrotoxins. ISAAC per cardiology Thank you for consulting nephrology, will continue to follow discussed with primary team.
[2025-04-11 20:29] LABS: Glucose,Whole Blood 130 mg/dL (70-110)
[2025-04-12 06:05] LABS: Glucose,Whole Blood 62 mg/dL (70-110)
[2025-04-12] MEDS: DEXTROSE 50% SYRINGE 50 ML IVP PRN (06:10)
[2025-04-12 06:31] LABS: Glucose,Whole Blood 86 mg/dL (70-110)
[2025-04-12 07:23] LABS: African American GFR (CKD) 32 (>60 ml/min/1.73 sqM); Anion Gap 7 mmol/L; Blood Urea Nitrogen 40 mg/dL (9-20); Calcium 9.3 mg/dL (8.4-10.2); Carbon Dioxide 34 mmol/L (22-30); Chloride 100 mmol/L (98-107); Glucose 75 mg/dL (74-99); Non-African American GFR(CKD) 28 (>60 ml/min/1.73 sqM); Potassium 4.4 mmol/L (3.5-5.1); Sodium 141 mmol/L (137-145)
[2025-04-12 08:11] LABS: Glucose,Whole Blood 72 mg/dL (70-110)
[2025-04-12 10:06] LABS: Glucose,Whole Blood 65 mg/dL (70-110)
[2025-04-12 10:35] LABS: Glucose,Whole Blood 111 mg/dL (70-110)
--- NOTE | 2025-04-12 11:07 | P.CONS ---
History of Present Illness - Reason for Consult Consult date: 04/12/25 wound vac - History of Present Illness This is a 64-year-old patient Being seen on 3 N. for nonhealing ulcerations bilateral lower extremities. Patient has multiple open ulcerations with fat layer exposure venous in nature to bilateral lower extremities. Patient also has edema hemosiderin staining and blistering noted. Patient states that he has utilized multiple different products for his legs with positive results in the past. Patient denies utilizing compression garments. Patient past medical history significant for heart failure COPD diabetes hyperlipidemia hypertension sleep apnea. Review Of Systems: Constitutional: No fever, no chills, no night sweats. No weight change. No weakness, fatigue or lethargy. No daytime sleepiness. Integumentary:reports wounds, no lesions. No rash or pruritus. No unusual bruising. No change in hair or nails. Physical exam: General Appearance: Alert, cooperative, no distress, appears stated age. Skin: See HPI all other Skin color, texture, tugor normal, no rashes or lesions. Neurologic: Alert oriented x3 Assessment: 1. Nonhealing ulceration right lower extremity with fat layer exposure 2. Chronic venous hypertension with ulceration right lower extremity 3. Chronic venous hypertension with inflammation 4. Diabetes with skin ulceration Plan: 1. Apply absorptive silver dry to open ulcerations wrap with rolled gauze and Kemar wrap for compression. Elevate legs 30 minutes 3 times a day above the heart. Do not sit with legs dependent. Patient may benefit from advanced wound care and wound care study. We be happy to see him once he is discharged. Alyssa ent declined outpatient wound care at this time. Thank you for the consultation any questions please contact the wound care center DNP note has been reviewed and discussed with Dr. De La Cruz and the impression and plan of care has been directed as dictated. Past Medical History Past Medical History: Chest Pain / Angina, Heart Failure, COPD, Diabetes Mellitus, Hyperlipidemia, Hypertension, Liver Disease, Myocardial Infarction ([place]), Sleep Apnea/CPAP/BIPAP Additional Past Medical History / Comment(s): wound rt tal[place], liver cirrhosis Last Myocardial Infarction Date:: 1987 History of Any Multi-Drug Resistant Organisms: None Reported Past Surgical History: Adenoidectomy, Cholecystectomy, Heart Catheterization, Tonsillectomy Additional Past Surgical History / Comment(s): UPP, mastoidectomy, septoplasty, stent in left leg, ablation Past Anesthesia/Blood Transfusion Reactions: No Reported Reaction Past Psychological History: No Psychological Hx Reported Smoking Status: Never smoker Past Alcohol Use History: Occasional Past Drug Use History: None Reported - Past Family History Mother Family Medical History: No Reported History Father Family Medical History: Hypertension Medications and Allergies Home Medications Medication Instructions Recorded Confirmed Type Ipratropium/Albuterol Sulfate 2 puff INHALATION RT-DAILY 06/02/15 04/08/25 History [Combivent Respimat Inhaler] Dulaglutide [Trulicity] 0.75 mg SQ BAIN 03/12/25 04/08/25 History Empagliflozin [Jardiance] 10 mg PO DAILY 03/12/25 04/08/25 History Insulin Glargine,Hum.rec.anlog 65 units SQ HS 03/12/25 04/08/25 History [Toujeo Solostar] Amiodarone [Cordarone] 200 mg PO BID 30 Days #60 tab 03/18/25 04/08/25 Rx Apixaban [Eliquis] 5 mg PO BID 30 Days #60 tab 03/18/25 04/08/25 Rx Aspirin 81 mg PO DAILY 30 Days #30 tab 03/18/25 04/08/25 Rx Atorvastatin [Lipitor] 40 mg PO HS 30 Days #30 tab 03/18/25 04/08/25 Rx Bumetanide [BUMEX] 1 mg PO BID@0900,1600 30 Days #60 03/18/25 04/08/25 Rx tab Spironolactone [Aldactone] 12.5 mg PO DAILY 30 Days #30 tab 03/18/25 04/08/25 Rx Budesonide/Formoterol Fumarate 2 puff INHALATION RT-BID 04/08/25 04/08/25 History [Symbicort 80-4.5 Mcg Inhaler] Sacubitril/Valsartan [Entresto 24 0.5 tab PO BID 04/08/25 04/08/25 History mg-26 mg Tablet] carvediloL [Coreg] 3.125 mg PO BID 04/08/25 04/08/25 History Allergies Allergy/AdvReac Type Severity Reaction Status Date / Time No Known Allergies Allergy Verified 04/08/25 20:47 Physical Exam Vitals: Vital Signs Temp Pulse Pulse Resp BP Pulse Ox 04/12/25 09:43 84 04/12/25 09:31 80 04/12/25 07:54 97.5 F L 65 17 110/74 96 04/12/25 03:46 71 17 110/68 97 04/11/25 23:20 75 16 100/77 96 04/11/25 20:25 97.4 F L 64 19 105/73 99 04/11/25 16:46 70 18 101/68 98 04/11/25 12:12 97.3 F L 74 18 105/71 98 Intake and Output 04/11/25 04/12/25 04/12/25 22:59 06:59 14:59 Intake Total 128 10 10 Output Total 650 675 375 Balance -472 -228 -450 Intake: IV 10 10 10 Invasive Line 1 10 10 10 Oral 118 Output: Urine 650 675 375 Other: Voiding Method Urinal Urinal Urinal Weight 137.8 kg Results CBC & Chem 7: 04/08/25 17:32 04/12/25 06:36 Labs: Abnormal Lab Results - Last 24 Hours (Table) 04/11/25 04/11/25 04/12/25 Range/Units 11:38 20:27 06:04 Carbon Dioxide (22-30) mmol/L BUN (9-20) mg/dL Creatinine (0.66-1.25) mg/dL POC Glucose (mg/dL) 115 H 130 H 62 L (70-110) mg/dL 04/12/25 04/12/25 04/12/25 Range/Units 06:36 10:04 10:34 Carbon Dioxide 34 H (22-30) mmol/L BUN 40 H (9-20) mg/dL Creatinine 2.35 H (0.66-1.25) mg/dL POC Glucose (mg/dL) 65 L 111 H (70-110) mg/dL Assessment and Plan (1) Non-pressure chronic ulcer of right calf with fat layer exposed Current Visit: Yes Status: Acute Code(s): L97.212 - NON-PRESSURE CHRONIC ULCER OF RIGHT CALF W FAT LAYER EXPOSED SNOMED Code(s): 96090146438599384 (2) Chronic venous hypertension (idiopathic) with ulcer and inflammation of right lower extremity Current Visit: Yes Status: Acute Code(s): I87.331 - CHRONIC VENOUS HTN W ULCER AND INFLAMMATION OF R LOW EXTREM SNOMED Code(s): 462400216925967 (3) Chronic venous hypertension (idiopathic) with inflammation of left lower extremity Current Visit: Yes Status: Acute Code(s): I87.322 - CHRONIC VENOUS HYPERTENSION W INFLAMMATION OF L LOW EXTREM SNOMED Code(s): 803564117 (4) Type 2 diabetes mellitus with other skin ulcer Current Visit: Yes Status: Acute Code(s): E11.622 - TYPE 2 DIABETES MELLITUS WITH OTHER SKIN ULCER; L98.499 - NON-PRESSURE CHRONIC ULCER OF SKIN OF SITES W UNSP SEVERITY SNOMED Code(s): 706835388116540
[2025-04-12 11:14] LABS: Glucose,Whole Blood 78 mg/dL (70-110)
[2025-04-12 12:29] LABS: Glucose,Whole Blood 68 mg/dL (70-110)
--- NOTE | 2025-04-12 12:44 | P.PN ---
Subjective Progress Note Date: 04/12/25 HISTORY OF PRESENT ILLNESS: This is a 64-year-old male patient of Dr. Kat with past medical history of nonischemic cardiomyopathy with EF of 20 to 25%, paroxysmal atrial flutter, valvular heart disease with moderate MR, moderate TR, severe pulmonary hypertension, diabetes, hypertension, dyslipidemia, chronic kidney disease and morbid obesity. Patient was recently established with Dr. Kat after a ho spitalization in February at which time he was treated for heart failure. Patient states that he was also hospitalized last week at [facility] and was in atrial flutter with plan for ISAAC and cardioversion but for some reason this was canceled and patient is scheduled for outpatient ISAAC and cardioversion with Dr. Kat on 04/16. During that hospitalization, patient apparently underwent paracentesis with removal of 4 L of fluid which helped his breathing. He had presented with shortness of breath. Patient has had chronic shortness of breath with worsening as well as weight gain consistent over the past 6 months. He complains of fatigue and not sleeping at night due to his shortness of breath. He states he did have improvement of his swelling while he was at [facility] except for the scrotal edema did not go down. Patient has been started on Bumex 1 mg IV every 12 hours but patient states he does not feel his symptoms are improving. Blood pressure 104/85, heart rate 81, pulse ox 93% on room air. Patient is afebrile. Patient is seen today in the emergency center waiting for a bed on the observation unit. We have requested the patient be admitted to 3 S. -EKG: Atrial tachycardia versus atrial flutter 2-1 conduction -Chest x-ray: Cardiomegaly and mild pulmonary vascular congestion. -Laboratory studies: Troponin 0.041, 0.046, 0.043. WBC 9.1, hemoglobin 14.1. Electrolytes are within normal limits. BUN 43 creatinine 1.94 which appears to be his baseline. Alkaline phosphatase 165. proBNP 7970. -Home cardiac medications: Amiodarone 200 mg twice daily, Eliquis 5 mg twice daily, aspirin 81 mg daily, a atorvastatin 40 mg at bedtime, Bumex 1 mg twice daily, Coreg 3.125 mg twice daily, Jardiance 10 mg daily, Entresto 24-26 mg half a tablet twice daily, spironolactone 12.5 mg daily. -Echocardiogram performed 03/14/2025 revealed EF of 20 to 25%, mild to moderate mitral regurgitation, severe pulmonary hypertension, mild to moderate tricuspid regurgitation, small pericardial effusion. 04/10/2025 Patient examined this morning at the bedside. Patient is currently sitting up in the chair. Patient denies chest pain or pressure. He reports shortness of breath this morning. He remains on IV Bumex. 04/11/2025 Patient examined this morning at bedside. Patient currently denies chest pain or pressure. She does report shortness of breath although improved from yes terday. He remains on IV Bumex. 04/12/2025 Patient is scheduled for ISAAC and cardioversion today with Dr. Kat. Heart rate is in the 70s and 80s, blood pressure 110/74. Patient remains in atrial flu tter. PHYSICAL EXAM: VITAL SIGNS: Reviewed. GENERAL: Well-developed in no acute distress. NECK: Supple. No JVD or thyromegaly LUNGS: Respirations even and unlabored. Lungs diminished bilaterally HEART: Irregular rate and rhythm. S1 and S2 heard. EXTREMITIES: Normal range of motion. No clubbing or cyanosis. Peripheral pulses intact. 2+ lower extremity edema ASSESSMENT: Acute on chronic systolic heart failure Flat troponins not indicative of acute coronary syndrome, type II IL secondary t o oxygen supply/demand mismatch Atrial tachycardia versus atrial flutter 2-1 conduction Recent diagnosis of cirrhosis of the liver at [facility] status post paracentesis with removal of 4 L of fluid Nonischemic cardiomyopathy with EF of 20 to 25% Valvular heart disease with moderate MR, moderate TR Severe pulmonary hypertension, RVSP estimated at 56 mmHg Diabetes mellitus type 2 Hypertension Dyslipidemia Chronic kidney disease stage stage III Morbid obesity with BMI of 40 PLAN: Continue current cardiac medications Continue anticoagulation with Eliquis Continue IV diuretics with Bumex 2 mg every 12 hours Daily weights, accurate intake and output, monitoring of kidney function Continue telemetry monitoring Patient is scheduled for outpatient ISAAC and cardioversion with Dr. Kat today Further recommendations pending patient course Nurse practitioner note has been reviewed by physician. Signing provider agrees with the documented findings, assessment, and plan of care documented by [employer]ICER as a scribe. Objective - Vital Signs Vital signs: Vital Signs Temp 97.5 F L 04/12/25 07:54 Pulse 75 04/12/25 11:10 Resp 17 04/12/25 11:10 BP 104/68 04/12/25 11:10 Pulse Ox 96 04/12/25 11:10 FiO2 Intake & Output 04/11/25 04/12/25 04/12/25 18:59 06:59 18:59 Intake Total 1088 20 10 Output Total 1275 1000 375 Balance -041 -217 -365 Weight 137.8 kg Intake: IV 10 20 10 Invasive Line 1 10 20 10 Oral 1078 Output: Urine 1275 1000 375 Other: Voiding Method Toilet Urinal Urinal Urinal # Voids 1 # Bowel Movements 1 - Labs CBC & Chem 7: 04/08/25 17:32 04/12/25 06:36 Labs: Abnormal Lab Results - Last 24 Hours (Table) 04/11/25 04/12/25 04/12/25 Range/Units 20:27 06:04 06:36 Carbon Dioxide 34 H (22-30) mmol/L BUN 40 H (9-20) mg/dL Creatinine 2.35 H (0.66-1.25) mg/dL POC Glucose (mg/dL) 130 H 62 L (70-110) mg/dL 04/12/25 04/12/25 04/12/25 Range/Units 10:04 10:34 12:28 Carbon Dioxide (22-30) mmol/L BUN (9-20) mg/dL Creatinine (0.66-1.25) mg/dL POC Glucose (mg/dL) 65 L 111 H 68 L (70-110) mg/dL
[2025-04-12] MEDS ORDERED: ATROPINE SULFATE 0.1 MG/ML 10ML SYRINGE ONE (12:55)
[2025-04-12] MEDS: IV FLUID CONTINUATION 1,000 ML IV ONE (12:55)
[2025-04-12] MEDS ORDERED: PROPOFOL 10 MG/ML 20 ML VIAL IV ONE (12:55)
[2025-04-12] MEDS ORDERED: PHENYLEPHRINE-0.9% NACL SYG 1,000 MCG/10 ML SYRINGE ONE (12:55)
[2025-04-12 12:56] LABS: Glucose,Whole Blood 105 mg/dL (70-110)
[2025-04-12] MEDS: BENZOCAINE SPRAY 1 EACH MUCOUS MEM STA (13:13)
--- NOTE | 2025-04-12 13:52 | P.PN ---
Subjective Progress Note Date: 04/12/25 Patient seen as a follow up for AC on CKD in the setting of cardiorenal syndrome. Patient currently presents with no complaints. He states he has urinating more frequently since being placed on the diuretics. He states that lower extremity edema and scrotal edema has remained relatively the same. Objective - Vital Signs Vital signs: Vital Signs Temp 97.5 F L 04/12/25 07:54 Pulse 68 04/12/25 13:00 Resp 18 04/12/25 13:00 BP 102/80 04/12/25 13:00 Pulse Ox 97 04/12/25 13:00 FiO2 Intake & Output 04/11/25 04/12/25 04/12/25 18:59 06:59 18:59 Intake Total 1088 20 10 Output Total 1275 1000 375 Balance -115 -222 -365 Weight 137.8 kg Intake: IV 10 20 10 Invasive Line 1 10 20 10 Oral 1078 Output: Urine 1275 1000 375 Other: Voiding Method Toilet Urinal Urinal Urinal # Voids 1 # Bowel Movements 1 - Exam General: No acute distress, obese HEENT: Head exam is unremarkable. LUNGS: CTA bilaterally, no audible rhonchi or wheezes. HEART: Regular rate and rhythm ABDOMEN and Genitourinary: distended abdomen, nontender to palpation, scrotal edema noted EXTREMITITES: 3+ pitting edema up to knee, and blisters of the toes, legs are wrapped with bandage - Labs CBC & Chem 7: 04/08/25 17:32 04/12/25 06:36 Labs: Abnormal Lab Results - Last 24 Hours (Table) 04/11/25 04/12/25 04/12/25 Range/Units 20:27 06:04 06:36 Carbon Dioxide 34 H (22-30) mmol/L BUN 40 H (9-20) mg/dL Creatinine 2.35 H (0.66-1.25) mg/dL POC Glucose (mg/dL) 130 H 62 L (70-110) mg/dL 04/12/25 04/12/25 04/12/25 Range/Units 10:04 10:34 12:28 Carbon Dioxide (22-30) mmol/L BUN (9-20) mg/dL Creatinine (0.66-1.25) mg/dL POC Glucose (mg/dL) 65 L 111 H 68 L (70-110) mg/dL Assessment and Plan Assessment: 1. Chronic kidney disease stage 3b, recurrent AKIs likely secondary to to cardiorenal syndrome. Baseline creatinine ~ 1.8 this admission. 2. Cardiomyopathy ejection fraction of 20 to 25% with mild to moderate mitral and tricuspid regurgitation. admitted with decompensated HF 3. Severe pulmonary hypertension. 4. Volume overload. getting IV diuretics , cardiology consulted 5. A-fib. rate controlled Plan: Renal function slightly worsened as expected with diuretic use, continue with another day of with IV Bumex. Continue with Diamox d/t metabolic alkalosis Continue Farxiga 5 mg daily and Aldactone 25 mg daily Continue with Entresto Urine output to be closely monitored, informed patient to limit fluids intake to 1.5 L/day and sodium intake to 2 g/day Daily weights. Informed patient once disgarged to keep track of weight Avoid nephrotoxins. ISAAC per cardiology likely this afternoon I have seen and examined the patient with resident and agree with A&P as written.
[2025-04-12 13:57] LABS: Glucose,Whole Blood 87 mg/dL (70-110)
[2025-04-12 14:57] LABS: Glucose,Whole Blood 74 mg/dL (70-110)
[2025-04-12] MEDS: BUMETANIDE 0.25 MG/ML 10 ML VIAL IV SCH (14:57)
[2025-04-12 16:23] LABS: Glucose,Whole Blood 72 mg/dL (70-110)
--- NOTE | 2025-04-12 17:57 | P.PN ---
Progress Note - Text Progress Note Date: 04/12/25 Chief Complaint: Jaundice Pleasant 64-year-old patient who follows with Dr. Neves. Chronic medical conditions include CHF, COPD, diabetes, hypertension hyperlipidemia cirrhosis NV about 40 years ago, obstructive sleep apnea does not use a CPAP angioplasty left lower extremity. Patient was here in the hospital about 2 weeks ago was not. With IV Lasix for CHF. Patient was discharged on March 18. On March 17 underwent a cardiac catheterization by Dr. Kat was found to have normal coronary arteries. 2D echo showed a EF of 2024%. Severely increased left ventricular mass. Severe pulmonary hypertension with moderate right ventricular dilatation. Mild to mod erate MR. Mild to moderate TR. Patient also found to be atrial fibrillation. Also underlying chronic kidney disease with creatinine of 1.49 in November 2024. Subsequent to that patient was admitted to [facility] where he was diagnosed with cirrhosis. Underwent paracentesis for about 4 L. Was discharged about 7 days ago. Patient was sent in by his home caregiver who felt the patient was jaundiced. Patient states his baseline lower extremity edema is unchanged. Abdominal distention is also unchanged. He is placing has some orthopnea is also pretty much unchanged. Patient started on IV Bumex in the ER. Patient scheduled for repeat paracentesis on Saturday. Patient's appetite is fair. No change in bowel pattern. April 10: Patient remains on IV Bumex 2 mg every 12. Not much urine output. Oral intake fair. Being followed by cardiology. Patient to elevate his scrotum when lying down. April 11: Remains on IV Bumex 2 mg every 12. Better urine output. Consult nephrology. Patient scheduled for ISAAC/cardioversion by Dr. Kat tomorrow. Oral intake fair. Ultram was added for scrotal discomfort. Will add Diamox for some metabolic alkalosis April 12: Patient was seen this morning. IV Bumex 2 mg every 12. Diamox. Aldactone. Entresto. Patient has bilateral lower extremity multiple open ulcers with fat layer exposure. Venous in nature. Wound care team is followlorelei tovar. Creatinine did bump up to 2.35. Nephrology also following. Accu-Cheks did drop. Lantus been cut back to 36 units. Patient was scheduled outpatient for ISAAC/cardioversion with Dr. aKt. Cardiology following. Active Medications Acetaminophen (Acetaminophen Tab 325 Mg Tab) 650 mg PO Q6HR PRN PRN Reason: Fever and/ or Pain Last Admin: 04/11/25 08:09 Dose: 650 mg Acetazolamide (Acetazolamide 250 Mg Tab) 250 mg PO BID [facility] Last Admin: 04/12/25 06:15 Dose: 250 mg Albuterol/Ipratropium (Ipratropium-Albuterol 3 Ml Neb) 3 ml INHALATION RT-DAILY [facility] Last Admin: 04/12/25 09:27 Dose: 3 ml Amiodarone HCl (Amiodarone 200 Mg Tab) 200 mg PO BID [facility] Last Admin: 04/12/25 06:15 Dose: 200 mg Apixaban (Apixaban 5 Mg Tab) 5 mg PO BID [facility]; Protocol Last Admin: 04/12/25 06:15 Dose: 5 mg Aspirin (Aspirin 81 Mg) 81 mg PO DAILY [facility] Last Admin: 04/12/25 06:15 Dose: 81 mg Atorvastatin Calcium (Atorvastatin 40 Mg Tab) 40 mg PO HS [facility] Last Admin: 04/11/25 20:35 Dose: 40 mg Budesonide/Formoterol Fumarate (Symbicort 80-4.5 Mcg Inhaler) 2 puff INHALATION RT-BID [facility] Last Admin: 04/12/25 09:28 Dose: 2 puff Bumetanide (Bumetanide 0.25 Mg/Ml 10 Ml Vial) 2 mg IV Q12H [facility] Last Admin: 04/12/25 14:57 Dose: 2 mg Carvedilol (Carvedilol 3.125 Mg Tab) 3.125 mg PO BID-W/MEALS [facility] Last Admin: 04/12/25 17:11 Dose: 3.125 mg Dapagliflozin (Dapagliflozin Propanediol 5 Mg Tablet) 5 mg PO DAILY [facility] Last Admin: 04/12/25 14:57 Dose: 5 mg Dextrose/Water (Dextrose 50% Syringe 50 Ml) 25 ml IVP PER PROTOCOL PRN; Protocol PRN Reason: Hypoglycemia Last Admin: 04/12/25 12:40 Dose: 25 ml Dextrose/Water (Dextrose 50% Syringe 50 Ml) 50 ml IVP PER PROTOCOL PRN; Protocol PRN Reason: Hypoglycemia Insulin Glargine (Insulin Glargine (Lantus) 100 Unit/Ml Syr) 36 unit SQ [facility] Insulin Human Lispro (Insulin Lispro (Humalog) 100 Unit/Ml 10 Ml Vl) 0 unit SQ [facility]; Protocol Last Admin: 04/12/25 17:02 Dose: Not Given Non-Formulary Medication (Dulaglutide [Trulicity]) 0.75 mg SQ BAIN [facility] Last Admin: 04/11/25 08:10 Dose: Not Given Nystatin (Nystatin 100,000 Unit/Gm Powd 15 Gm) 1 applic TOPICAL BID [facility]; Protocol Last Admin: 04/12/25 06:19 Dose: 1 applic Petrolatum (Zinc Oxide Paste (Z-Guard) 1 Applic) 1 applic TOPICAL Q2HR PRN; Protocol PRN Reason: Wound Healing Sacubitril/Valsartan (Sacubitril/Valsartan 24 Mg-26 Mg Tablet) 0.5 each PO BID [facility] Last Admin: 04/12/25 06:14 Dose: 0.5 each Spironolactone (Spironolactone 25 Mg Tab) 25 mg PO DAILY [facility] Last Admin: 04/12/25 06:15 Dose: 25 mg Tramadol HCl (Tramadol 50 Mg Tab) 50 mg PO QID PRN PRN Reason: Pain Last Admin: 04/12/25 11:16 Dose: 50 mg Social history: Non-smoker. Alcohol occasionally. 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 Physical examination: VITAL SIGNS: 97.3, 65, 17, 97 x 36, 99% on 2 L GENERAL: Sitting at the edge of the bed. EYES: Pupils equal. Conjunctiva allison l. HEENT: External appearance of nose and ears normal, oral cavity grossly normal. NECK: JVD not raised; masses not palpable. HEART: First and second heart sounds are normal edema present. LUNGS: Respiratory rate normal; decreased breath sound. ABDOMEN: Soft, but distended nontender, liver spleen not palpable, no masses palpable, scrotal swelling. PSYCH: Alert and oriented x3; mood and affect allison l. MUSCULOSKELETAL:No Clubbing/cyanosis;muscles-grossly intact. OA Extremities: [Bilateral lower extremity open wounds with fat exposure.] Covered with Kemar wrap local dressing INVESTIGATIONS, reviewed in the clinical context: April 12: Potassium 4.4 bicarb 34 BUN 40 creatinine 2.35. Blood glucose 75 April 11: Potassium 3.8 BUN 40 creatinine 1.80 bicarb 31 April 10: Potassium 3.9 BUN 40 creatinine 1.9 April 09, 2025: Potassium 4.9 BUN 42 creatinine 1.84 white count 9.1 hemoglobin 14.1 platelet 385. Total bilirubin 1.4 Troponin I 0.041, 0.046, 0.043 Chest x-ray film personally reviewed by me-cardiomegaly. Questionable venous prominence Abdominal ultrasound: Mild ascites March 12, 2025: Creatinine 1.83 Assessment plan: -Acute on chronic congestive heart failure from both systolic and diastolic dysfunction. EF 20 to 25%. IV Bumex 2 mg twice daily. I's and O's. Follow renal function. Coreg. Entresto. Aldactone. Being followed by cardiology -Recent diagnosed cirrhosis. Likely cryptogenic. Denies any history of alco holism. This was diagnosed a week ago at [facility]. He is can a follow-up at the same. He had 4 L of paracentesis done over a week ago. Ultrasound currently shows minimal ascites. - Chronic kidney disease. Stage IIIb combination of cardiorenal syndrome.: Some worsening March 12, 2025: Creatinine 1.83 Being followed by nephrology - Metabolic alkalosis from diuresis Diamox - Cor pulmonale, chronic - Severe secondary pulmonary hypertension - Chronic venous stasis dermatitis lower extremity. Bilateral lower extremity venous wounds with fat layer exposure. Wound care team following. - Mild to moderate MR, mild to moderate TR - Diabetes mellitus type 2, chronically requiring insulin. Uncontrolled with hyperglycemia Decrease Lantus. Follow Accu-Cheks - Atrial flutter fibrillation/atrial tachycardia Eliquis. Amiodarone. Pending ISAAC/cardioversion by Dr. Kat-was scheduled today as outpatient - Morbid obesity BMI 40.7 - COPD non-smoker Combivent - Full code discussed with the patient. Present time he wants to be a full code Discussed with patient. Follow-up with cardiology. Nephrology Past Medical History Past Medical History: Chest Pain / Angina, Heart Failure, COPD, Diabetes Mellitus, Hyperlipidemia, Hypertension, Liver Disease, Myocardial Infarction ([place]), Sleep Apnea/CPAP/BIPAP Additional Past Medical History / Comment(s): wound rt [place], liver cirrhosis Last Myocardial Infarction Date:: 1987 History of Any Multi-Drug Resistant Organisms: None Reported Past Surgical History: Adenoidectomy, Cholecystectomy, Heart Catheterization, Tonsillectomy Additional Past Surgical History / Comment(s): UPP, mastoidectomy, septoplasty, stent in left leg, ablation Past Anesthesia/Blood Transfusion Reactions: No Reported Reaction Past Psychological History: No Psychological Hx Reported Smoking Status: Never smoker Past Alcohol Use History: Occasional Past Drug Use History: None Reported
[2025-04-12 19:56] LABS: Glucose,Whole Blood 78 mg/dL (70-110)
[2025-04-12] MEDS: INSULIN GLARGINE (LANTUS) 100 UNIT/ML SYR SQ SCH (20:37)
[2025-04-12 23:16] LABS: Glucose,Whole Blood 79 mg/dL (70-110)
[2025-04-13 02:53] LABS: Glucose,Whole Blood 53 mg/dL (70-110)
[2025-04-13 03:12] LABS: Glucose,Whole Blood 190 mg/dL (70-110)
--- NOTE | 2025-04-13 05:46 | P.PCN ---
Date of Procedure: 04/13/25 Operative Findings: Transesophageal echocardiogram Performing physician lSade Kat MD Indication Rule out intracardiac thrombus before cardioversion Procedure description After obtaining informed consent the patient was brought to the recovery. The pulse oximetry and heart rate monitors were attached to the patient. Subsequently the patient throat was sprayed using lidocaine. The patient was then turned into a left lateral position and a bite guard was placed. The transesophageal echocardiogram was advanced to the mid esophageal where a 2D echocardiogram as well as color Doppler and pulse-wave Doppler obtained from multiple angles. Subsequently the probe was advanced to the stomach. The procedure was completed with no complication Conclusion No evidence of any intracardiac thrombus Intact left atrial appendage with no thrombus Impaired LV systolic function with EF between 30 to 35% Mild to moderate mitral regurgitation No evidence of pericardial effusion
--- NOTE | 2025-04-13 05:49 | P.PCN ---
Date of Procedure: 04/12/25 Operative Findings: Transesophageal echocardiogram Performing physician Slade Kat MD Indication Rule out intracardiac thrombus before cardioversion Procedure description After obtaining informed consent the patient was brought to the recovery. The pulse oximetry and heart rate monitors were attached to the patient. Subsequently the patient throat was sprayed using lidocaine. The patient was then turned into a left lateral position and a bite guard was placed. The transesophageal echocardiogram was advanced to the mid esophageal where a 2D echocardiogram as well as color Doppler and pulse-wave Doppler obtained from multiple angles. Subsequently the probe was advanced to the stomach. The procedure was completed with no complication Conclusion No evidence of any intracardiac thrombus Intact left atrial appendage with no thrombus Impaired LV systolic function with EF between 30 to 35% Mild to moderate mitral regurgitation No evidence of pericardial effusion
[2025-04-13 06:09] LABS: Glucose,Whole Blood 58 mg/dL (70-110)
[2025-04-13 06:29] LABS: Glucose,Whole Blood 58 mg/dL (70-110)
[2025-04-13 06:52] LABS: Glucose,Whole Blood 74 mg/dL (70-110)
[2025-04-13 07:43] LABS: Glucose,Whole Blood 72 mg/dL (70-110)
[2025-04-13 08:10] LABS: African American GFR (CKD) 26 (>60 ml/min/1.73 sqM); Anion Gap 13 mmol/L; Blood Urea Nitrogen 44 mg/dL (9-20); Calcium 9.1 mg/dL (8.4-10.2); Carbon Dioxide 29 mmol/L (22-30); Chloride 98 mmol/L (98-107); Glucose 60 mg/dL (74-99); Non-African American GFR(CKD) 23 (>60 ml/min/1.73 sqM); Potassium 4.1 mmol/L (3.5-5.1); Sodium 140 mmol/L (137-145)
[2025-04-13] MEDS: BUMETANIDE 1 MG TAB PO SCH ×2 (09:30→15:21)
--- NOTE | 2025-04-13 10:35 | P.PN ---
Subjective Progress Note Date: 04/13/25 HISTORY OF PRESENT ILLNESS: This is a 64-year-old male patient of Dr. Kat with past medical history of nonischemic cardiomyopathy with EF of 20 to 25%, paroxysmal atrial flutter, valvular heart disease with moderate MR, moderate TR, severe pulmonary hypertension, diabetes, hypertension, dyslipidemia, chronic kidney disease and morbid obesity. Patient was recently established with Dr. Kat after a ho spitalization in February at which time he was treated for heart failure. Patient states that he was also hospitalized last week at [facility] and was in atrial flutter with plan for ISAAC and cardioversion but for some reason this was canceled and patient is scheduled for outpatient ISAAC and cardioversion with Dr. Kat on 04/16. During that hospitalization, patient apparently underwent paracentesis with removal of 4 L of fluid which helped his breathing. He had presented with shortness of breath. Patient has had chronic shortness of breath with worsening as well as weight gain consistent over the past 6 months. He complains of fatigue and not sleeping at night due to his shortness of breath. He states he did have improvement of his swelling while he was at [facility] except for the scrotal edema did not go down. Patient has been started on Bumex 1 mg IV every 12 hours but patient states he does not feel his symptoms are improving. Blood pressure 104/85, heart rate 81, pulse ox 93% on room air. Patient is afebrile. Patient is seen today in the emergency center waiting for a bed on the observation unit. We have requested the patient be admitted to 3 S. -EKG: Atrial tachycardia versus atrial flutter 2-1 conduction -Chest x-ray: Cardiomegaly and mild pulmonary vascular congestion. -Laboratory studies: Troponin 0.041, 0.046, 0.043. WBC 9.1, hemoglobin 14.1. Electrolytes are within normal limits. BUN 43 creatinine 1.94 which appears to be his baseline. Alkaline phosphatase 165. proBNP 7970. -Home cardiac medications: Amiodarone 200 mg twice daily, Eliquis 5 mg twice daily, aspirin 81 mg daily, a atorvastatin 40 mg at bedtime, Bumex 1 mg twice daily, Coreg 3.125 mg twice daily, Jardiance 10 mg daily, Entresto 24-26 mg half a tablet twice daily, spironolactone 12.5 mg daily. -Echocardiogram performed 03/14/2025 revealed EF of 20 to 25%, mild to moderate mitral regurgitation, severe pulmonary hypertension, mild to moderate tricuspid regurgitation, small pericardial effusion. 04/10/2025 Patient examined this morning at the bedside. Patient is currently sitting up in the chair. Patient denies chest pain or pressure. He reports shortness of breath this morning. He remains on IV Bumex. 04/11/2025 Patient examined this morning at bedside. Patient currently denies chest pain or pressure. She does report shortness of breath although improved from yes terday. He remains on IV Bumex. 04/12/2025 Patient is scheduled for ISAAC and cardioversion today with Dr. Kat. Heart rate is in the 70s and 80s, blood pressure 110/74. Patient remains in atrial flu tter. 04/13/2025 Patient seen and examined. Yesterday he underwent ISAAC and cardioversion with Dr. Kat which converted him to sinus rhythm. He remains in a sinus rhythm this morning. He states he is feeling good. He is complaining of scrotal edema. He continues to have lower extremity edema as well. Blood pressure 94/69, heart rate 63, pulse ox 99% on room air. Repeat blood work reveals BUN 44 creatinine 2.79, potassium 4.1. PHYSICAL EXAM: VITAL SIGNS: Reviewed. GENERAL: Well-developed in no acute distress. NECK: Supple. No JVD or thyromegaly LUNGS: Respirations even and unlabored. Lungs diminished bilaterally HEART: Irregular rate and rhythm. S1 and S2 heard. EXTREMITIES: Normal range of motion. No clubbing or cyanosis. Peripheral pulses intact. 2+ lower extremity edema ASSESSMENT: Acute on chronic systolic heart failure Flat troponins not indicative of acute coronary syndrome, type II TX secondary to oxygen supply/demand mismatch Typical atrial flutter status post cardioversion Recent diagnosis of cirrhosis of the liver at [facility] status post paracentesis with removal of 4 L of fluid Nonischemic cardiomyopathy with EF of 20 to 25% Valvular heart disease with moderate MR, moderate TR Severe pulmonary hypertension, RVSP estimated at 56 mmHg Diabetes mellitus type 2 Hypertension Dyslipidemia Chronic kidney disease stage stage III Morbid obesity with BMI of 40 PLAN: Continue current cardiac medications Continue anticoagulation with Eliquis Transition IV Bumex to oral 2 mg twice daily Patient is cleared for discharge from cardiology and will follow-up with Dr. Kat in 1 to 2 weeks. Further recommendations pending patient course Nurse practitioner note has been reviewed by physician. Signing provider agrees with the documented findings, assessment, and plan of care documented by PAYLOADER OPERATOR as a scribe. Objective - Vital Signs Vital signs: Vital Signs Temp 97.4 F L 04/12/25 20:15 Pulse 68 04/13/25 03:15 Resp 17 04/13/25 03:15 BP 103/62 04/13/25 03:15 Pulse Ox 96 04/13/25 03:15 FiO2 Intake & Output 04/12/25 04/13/25 04/13/25 18:59 06:59 18:59 Intake Total 430 20 Output Total 375 600 Balance 55 -580 Weight 138.7 kg Intake: IV 430 20 Invasive Line 1 20 Invasive Line 2 10 20 Output: Urine 375 600 Straight 600 Other: Voiding Method Urinal Urinal # Voids 3 1 # Bowel Movements 1 1 - Labs CBC & Chem 7: 04/08/25 17:32 04/13/25 07:30 Labs: Abnormal Lab Results - Last 24 Hours (Table) 04/12/25 04/12/25 04/12/25 Range/Units 10:04 10:34 12:28 POC Glucose (mg/dL) 65 L 111 H 68 L (70-110) mg/dL 04/13/25 04/13/25 04/13/25 Range/Units 02:52 03:10 06:07 POC Glucose (mg/dL) 53 L 190 H 58 L (70-110) mg/dL 04/13/25 Range/Units 06:28 POC Glucose (mg/dL) 58 L (70-110) mg/dL
[2025-04-13 11:29] LABS: Glucose,Whole Blood 83 mg/dL (70-110)
--- NOTE | 2025-04-13 14:22 | P.PN ---
Subjective Progress Note Date: 04/13/25 Patient seen and evaluated bedside. No events overnight, no acute complaints. LE edema improving. Patient states he is still voiding but has tapered off. Vital Signs reviewed and stable General: No acute distress, obese HEENT: Head exam is unremarkable. LUNGS: CTA bilaterally, no audible rhonchi or wheezes. HEART: Regular rate and rhythm ABDOMEN and Genitourinary: distended abdomen, nontender to palpation, scrotal edema noted EXTREMITITES: 2+ pitting edema up to knee, and blisters of the toes, legs are wrapped with bandage Objective - Vital Signs Vital signs: Vital Signs Temp 97.4 F L 04/12/25 20:15 Pulse 68 04/13/25 03:15 Resp 17 04/13/25 03:15 BP 103/62 04/13/25 03:15 Pulse Ox 96 04/13/25 03:15 FiO2 Intake & Output 04/12/25 04/13/25 04/13/25 18:59 06:59 18:59 Intake Total 430 20 Output Total 375 600 Balance 55 -580 Weight 138.7 kg Intake: IV 430 20 Invasive Line 1 20 Invasive Line 2 10 20 Output: Urine 375 600 Straight 600 Other: Voiding Method Urinal Urinal # Voids 3 1 # Bowel Movements 1 1 - Labs CBC & Chem 7: 04/08/25 17:32 04/13/25 07:30 Labs: Abnormal Lab Results - Last 24 Hours (Table) 04/12/25 04/12/25 04/12/25 Range/Units 10:04 10:34 12:28 BUN (9-20) mg/dL Creatinine (0.66-1.25) mg/dL Glucose (74-99) mg/dL POC Glucose (mg/dL) 65 L 111 H 68 L (70-110) mg/dL 04/13/25 04/13/25 04/13/25 Range/Units 02:52 03:10 06:07 BUN (9-20) mg/dL Creatinine (0.66-1.25) mg/dL Glucose (74-99) mg/dL POC Glucose (mg/dL) 53 L 190 H 58 L (70-110) mg/dL 04/13/25 04/13/25 Range/Units 06:28 07:30 BUN 44 H (9-20) mg/dL Creatinine 2.79 H (0.66-1.25) mg/dL Glucose 60 L (74-99) mg/dL POC Glucose (mg/dL) 58 L (70-110) mg/dL Assessment and Plan Assessment: 1. Chronic kidney disease stage 3b, recurrent AKIs likely secondary to to cardiorenal syndrome. Baseline creatinine ~ 1.8 this admission. 2. Cardiomyopathy ejection fraction of 30 to 35% with mild to moderate mitral and tricuspid regurgitation. admitted with decompensated HF 3. Severe pulmonary hypertension. 4. Volume overload. getting IV diuretics , cardiology consulted 5. A-fib/flutter. s/p cardioversion Plan: Renal function slightly worsened as expected with diuretic use, cut Bumex down to 1 mg PO BID Discontinue diamox Continue Farxiga 5 mg daily and Aldactone 25 mg daily Continue with Entresto Urine output to be closely monitored, informed patient to limit fluids intake to 1.5 L/day and sodium intake to 2 g/day Daily weights. Informed patient once discharged to keep track of weight Strict intake/output Avoid nephrotoxins. I have seen and examined the patient with resident and agree with A&P as michel joshi. AC due to ATN secondary to CRS.
--- NOTE | 2025-04-13 15:21 | P.PN ---
Progress Note - Text Progress Note Date: 04/13/25 Chief Complaint: Jaundice Pleasant 64-year-old patient who follows with Dr. Neves. Chronic medical conditions include CHF, COPD, diabetes, hypertension hyperlipidemia cirrhosis [place] about 40 years ago, obstructive sleep apnea does not use a CPAP angioplasty left lower extremity. Patient was here in the hospital about 2 weeks ago was not. With IV Lasix for CHF. Patient was discharged on March 18. On March 17 underwent a cardiac catheterization by Dr. Kat was found to have normal coronary arteries. 2D echo showed a EF of 2024%. Severely increased left ventricular mass. Severe pulmonary hypertension with moderate right ventricular dilatation. Mild to mod erate MR. Mild to moderate TR. Patient also found to be atrial fibrillation. Also underlying chronic kidney disease with creatinine of 1.49 in November 2024. Subsequent to that patient was admitted to [facility] where he was diagnosed with cirrhosis. Underwent paracentesis for about 4 L. Was discharged about 7 days ago. Patient was sent in by his home caregiver who felt the patient was jaundiced. Patient states his baseline lower extremity edema is unchanged. Abdominal distention is also unchanged. He is placing has some orthopnea is also pretty much unchanged. Patient started on IV Bumex in the ER. Patient scheduled for repeat paracentesis on Saturday. Patient's appetite is fair. No change in bowel pattern. April 10: Patient remains on IV Bumex 2 mg every 12. Not much urine output. Oral intake fair. Being followed by cardiology. Patient to elevate his scrotum when lying down. April 11: Remains on IV Bumex 2 mg every 12. Better urine output. Consult nephrology. Patient scheduled for ISAAC/cardioversion by Dr. Kat tomorrow. Oral intake fair. Ultram was added for scrotal discomfort. Will add Diamox for some metabolic alkalosis April 12: Patient was seen this morning. IV Bumex 2 mg every 12. Diamox. Aldactone. Entresto. Patient has bilateral lower extremity multiple open ulcers with fat layer exposure. Venous in nature. Wound care team is roxanne tovar. Creatinine did bump up to 2.35. Nephrology also following. Accu-Cheks did drop. Lantus been cut back to 36 units. Patient was scheduled outpatient for ISAAC/cardioversion with Dr. Kat. Cardiology following. April 13: Seen this morning. Underwent ISAAC followed by successful cardioversion. Creatinine is up to 2.79. Switched over to oral Bumex. Will watch renal function further 24 hours. Eating fair. Diamox discontinue. Accu-Cheks close patient is n.p.o. this morning Active Medications Acetaminophen (Acetaminophen Tab 325 Mg Tab) 650 mg PO Q6HR PRN PRN Reason: Fever and/ or Pain Last Admin: 04/11/25 08:09 Dose: 650 mg Albuterol/Ipratropium (Ipratropium-Albuterol 3 Ml Neb) 3 ml INHALATION RT-DAILY [facility] Last Admin: 04/13/25 09:15 Dose: 3 ml Amiodarone HCl (Amiodarone 200 Mg Tab) 200 mg PO BID [facility] Last Admin: 04/13/25 09:30 Dose: 200 mg Apixaban (Apixaban 5 Mg Tab) 5 mg PO BID [facility]; Protocol Last Admin: 04/13/25 09:31 Dose: 5 mg Aspirin (Aspirin 81 Mg) 81 mg PO DAILY [facility] Last Admin: 04/13/25 09:31 Dose: 81 mg Atorvastatin Calcium (Atorvastatin 40 Mg Tab) 40 mg PO HS [facility] Last Admin: 04/12/25 20:38 Dose: 40 mg Budesonide/Formoterol Fumarate (Symbicort 80-4.5 Mcg Inhaler) 2 puff INHALATION RT-BID [facility] Last Admin: 04/13/25 09:15 Dose: 2 puff Bumetanide (Bumetanide 1 Mg Tab) 1 mg PO BID@0900,1600 [facility] Carvedilol (Carvedilol 3.125 Mg Tab) 3.125 mg PO BID-W/MEALS [facility] Last Admin: 04/13/25 06:27 Dose: 3.125 mg Dapagliflozin (Dapagliflozin Propanediol 5 Mg Tablet) 5 mg PO DAILY [facility] Last Admin: 04/13/25 09:30 Dose: 5 mg Dextrose/Water (Dextrose 50% Syringe 50 Ml) 25 ml IVP PER PROTOCOL PRN; Protocol PRN Reason: Hypoglycemia Last Admin: 04/12/25 12:40 Dose: 25 ml Dextrose/Water (Dextrose 50% Syringe 50 Ml) 50 ml IVP PER PROTOCOL PRN; Protocol PRN Reason: Hypoglycemia Insulin Glargine (Insulin Glargine (Lantus) 100 Unit/Ml Syr) 36 unit SQ [facility] Last Admin: 04/12/25 20:37 Dose: 26 unit Insulin Human Lispro (Insulin Lispro (Humalog) 100 Unit/Ml 10 Ml Vl) 0 unit SQ ACHS [facility]; Protocol Last Admin: 04/13/25 13:56 Dose: Not Given Non-Formulary Medication (Dulaglutide [Trulicity]) 0.75 mg SQ BAIN [facility] Last Admin: 04/11/25 08:10 Dose: Not Given Nystatin (Nystatin 100,000 Unit/Gm Powd 15 Gm) 1 applic TOPICAL BID [facility]; Protocol Last Admin: 04/13/25 09:31 Dose: 1 applic Petrolatum (Zinc Oxide Paste (Z-Guard) 1 Applic) 1 applic TOPICAL Q2HR PRN; Protocol PRN Reason: Wound Healing Sacubitril/Valsartan (Sacubitril/Valsartan 24 Mg-26 Mg Tablet) 0.5 each PO BID [facility] Last Admin: 04/13/25 09:31 Dose: 0.5 each Spironolactone (Spironolactone 25 Mg Tab) 25 mg PO DAILY [facility] Last Admin: 04/13/25 09:31 Dose: 25 mg Tramadol HCl (Tramadol 50 Mg Tab) 50 mg PO QID PRN PRN Reason: Pain Last Admin: 04/13/25 09:30 Dose: 50 mg Social history: Non-smoker. Alcohol occasionally. 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 Physical examination: VITAL SIGNS: 97.2, 61, 17, 104 x 71, 96% room GENERAL: Sitting up, not interested EYES: Pupils equal. Conjunctiva allison l. HEENT: External appearance of nose and ears normal, oral cavity grossly normal. NECK: JVD not raised; masses not palpable. HEART: First and second heart sounds are normal edema present. LUNGS: Respiratory rate normal; decreased breath sound. ABDOMEN: Soft, but distended nontender, liver spleen not palpable, no masses palpable, scrotal swelling. PSYCH: Alert and oriented x3; mood and affect allison l. MUSCULOSKELETAL:No Clubbing/cyanosis;muscles-grossly intact. OA Extremities: [Bilateral lower extremity open wounds with fat exposure.] Covered with Kemar wrap local dressing INVESTIGATIONS, reviewed in the clinical context: April 13: Potassium 4.1 BUN 44 creatinine 2.79 April 12: Potassium 4.4 bicarb 34 BUN 40 creatinine 2.35. Blood glucose 75 April 11: Potassium 3.8 BUN 40 creatinine 1.80 bicarb 31 April 10: Potassium 3.9 BUN 40 creatinine 1.9 April 09, 2025: Potassium 4.9 BUN 42 creatinine 1.84 white count 9.1 hemoglobin 14.1 platelet 385. Total bilirubin 1.4 Troponin I 0.041, 0.046, 0.043 Chest x-ray film personally reviewed by me-cardiomegaly. Questionable venous prominence Abdominal ultrasound: Mild ascites March 12, 2025: Creatinine 1.83 Assessment plan: -Acute on chronic congestive heart failure from both systolic and diastolic dysfunction. EF 20 to 25%. IV Bumex 2 mg twice daily. I's and O's. Follow renal function. Coreg. Entresto. Aldactone. Being followed by cardiology -Recent diagnosed cirrhosis. Likely cryptogenic. Denies any history of alcoholism. This was diagnosed a week ago at [facility]. He is can a follow-up at the same. He had 4 L of paracentesis done over a week ago. Ultrasound currently shows minimal ascites. -Acute on chronic kidney disease. Stage IIIb combination of cardiorenal syndrome.: Some worsening March 12, 2025: Creatinine 1.83 Being followed by nephrology - Metabolic alkalosis from diuresis Diamox, now - Cor pulmonale, chronic - Severe secondary pulmonary hypertension - Chronic venous stasis dermatitis lower extremity. Bilateral lower extremity venous wounds with fat layer exposure. Wound care team following. - Mild to moderate MR, mild to moderate TR - Diabetes mellitus type 2, chronically requiring insulin. Uncontrolled with hyperglycemia Decrease Lantus. Follow Accu-Cheks - Atrial flutter fibrillation/atrial tachycardia Eliquis. Amiodarone. April 13: ISAAC followed by successful cardioversion - Morbid obesity BMI 40.7 - COPD non-smoker Combivent - Full code discussed with the patient. D watch for 24 hours. Repeat labs in the morning. Past Medical History Past Medical History: Chest Pain / Angina, Heart Failure, COPD, Diabetes Mellitus, Hyperlipidemia, Hypertension, Liver Disease, Myocardial Infarction ([place]), Sleep Apnea/CPAP/BIPAP Additional Past Medical History / Comment(s): wound rt [place], liver cirrhosis Last Myocardial Infarction Date:: 1987 History of Any Multi-Drug Resistant Organisms: None Reported Past Surgical History: Adenoidectomy, Cholecystectomy, Heart Catheterization, Tonsillectomy Additional Past Surgical History / Comment(s): UPP, mastoidectomy, septoplasty, stent in left leg, ablation Past Anesthesia/Blood Transfusion Reactions: No Reported Reaction Past Psychological History: No Psychological Hx Reported Smoking Status: Never smoker Past Alcohol Use History: Occasional Past Drug Use History: None Reported
[2025-04-13 16:38] LABS: Glucose,Whole Blood 64 mg/dL (70-110)
[2025-04-13 17:06] LABS: Glucose,Whole Blood 59 mg/dL (70-110)
[2025-04-13 17:31] LABS: Glucose,Whole Blood 126 mg/dL (70-110)
[2025-04-13 20:39] LABS: Glucose,Whole Blood 110 mg/dL (70-110)
--- NOTE | 2025-04-14 06:22 | P.GSCN ---
History of Present Illness Consult date: 04/13/25 Reason for Consult: Urinary retention Requesting physician: Jose Maria Bernal History of present illness: The patient is a 64-year-old white male with multiple medical conditions including hypertension, hyperlipidemia, diabetes mellitus, COPD, CHF, and sleep apnea. He was hospitalized 2 weeks ago and treated for CHF. Cardiac catheterization showed normal coronary arteries. 2D echo showed an EF of 20- 25%. The patient was subsequently hospitalized at [facility] and diagnosed with cirrhosis. Reportedly, 4 L of fluid was drained via paracentesis. The patient has underwent an unremarkable urologic history. He denies any prior history of UTIs or urolithiasis. He has no known baseline BPH. However, he does report a weak urinary stream with occasional hesitancy. He denies intermittency and straining, as well as dysuria and hematuria. He has been found to empty his bladder incompletely, and has been straight catheterized for volumes of 600 cc and 375 cc. Review of Systems - Cardiovascular Reports high blood pressure, Reports leg edema - Genitourinary Reports as per HPI Past Medical History Past Medical History: Chest Pain / Angina, Heart Failure, COPD, Diabetes Mellitus, Hyperlipidemia, Hypertension, Liver Disease, Myocardial Infarction ([place]), Sleep Apnea/CPAP/BIPAP Additional Past Medical History / Comment(s): wound rt [place], liver cirrhosis Last Myocardial Infarction Date:: 1987 History of Any Multi-Drug Resistant Organisms: None Reported Past Surgical History: Adenoidectomy, Cholecystectomy, Heart Catheterization, Tonsillectomy Additional Past Surgical History / Comment(s): UPP, mastoidectomy, septoplasty, stent in left leg, ablation Past Anesthesia/Blood Transfusion Reactions: No Reported Reaction Past Psychological History: No Psychological Hx Reported Smoking Status: Never smoker Past Alcohol Use History: Occasional Past Drug Use History: None Reported - Past Family History Mother Family Medical History: No Reported History Father Family Medical History: Hypertension Medications and Allergies Home Medications Medication Instructions Recorded Confirmed Type Ipratropium/Albuterol Sulfate 2 puff INHALATION RT-DAILY 06/02/15 04/08/25 History [Combivent Respimat Inhaler] Dulaglutide [Trulicity] 0.75 mg SQ BAIN 03/12/25 04/08/25 History Empagliflozin [Jardiance] 10 mg PO DAILY 03/12/25 04/08/25 History Insulin Glargine,Hum.rec.anlog 65 units SQ HS 03/12/25 04/08/25 History [Toujazzy Solostar] Amiodarone [Cordarone] 200 mg PO BID 30 Days #60 tab 03/18/25 04/08/25 Rx Apixaban [Eliquis] 5 mg PO BID 30 Days #60 tab 03/18/25 04/08/25 Rx Aspirin 81 mg PO DAILY 30 Days #30 tab 03/18/25 04/08/25 Rx Atorvastatin [Lipitor] 40 mg PO HS 30 Days #30 tab 03/18/25 04/08/25 Rx Bumetanide [BUMEX] 1 mg PO BID@0900,1600 30 Days #60 03/18/25 04/08/25 Rx tab Spironolactone [Aldactone] 12.5 mg PO DAILY 30 Days #30 tab 03/18/25 04/08/25 Rx Budesonide/Formoterol Fumarate 2 puff INHALATION RT-BID 04/08/25 04/08/25 History [Symbicort 80-4.5 Mcg Inhaler] Sacubitril/Valsartan [Entresto 24 0.5 tab PO BID 04/08/25 04/08/25 History mg-26 mg Tablet] carvediloL [Coreg] 3.125 mg PO BID 04/08/25 04/08/25 History Allergies Allergy/AdvReac Type Severity Reaction Status Date / Time No Known Allergies Allergy Verified 04/08/25 20:47 Surgical - Exam Vital Signs Temp Pulse Resp BP Pulse Ox 97.8 F 82 16 109/76 98 04/08/25 16:47 04/08/25 16:47 04/08/25 16:47 04/08/25 16:47 04/08/25 16:47 - General well developed, well nourished, no distress - Respiratory normal respiratory effort - Abdomen Soft, obese, non-tender. - Genitourinary Moderate to severe penoscrotal edema. - Psychiatric oriented to time, oriented to person, oriented to place, speech is normal, memory intact Results - Labs 04/08/25 17:32 04/13/25 07:30 Abnormal Lab Results - Last 24 Hours (Table) 04/12/25 04/13/25 04/13/25 Range/Units 12:28 02:52 03:10 BUN (9-20) mg/dL Creatinine (0.66-1.25) mg/dL Glucose (74-99) mg/dL POC Glucose (mg/dL) 68 L 53 L 190 H (70-110) mg/dL 04/13/25 04/13/25 04/13/25 Range/Units 06:07 06:28 07:30 BUN 44 H (9-20) mg/dL Creatinine 2.79 H (0.66-1.25) mg/dL Glucose 60 L (74-99) mg/dL POC Glucose (mg/dL) 58 L 58 L (70-110) mg/dL Diabetes panel 04/13/25 Range/Units 07:30 Sodium 140 (137-145) mmol/L Potassium 4.1 (3.5-5.1) mmol/L Chloride 98 (98-107) mmol/L Carbon Dioxide 29 (22-30) mmol/L BUN 44 H (9-20) mg/dL Creatinine 2.79 H (0.66-1.25) mg/dL Glucose 60 L (74-99) mg/dL Calcium 9.1 (8.4-10.2) mg/dL Calcium panel 04/13/25 Range/Units 07:30 Calcium 9.1 (8.4-10.2) mg/dL Pituitary panel 04/13/25 Range/Units 07:30 Sodium 140 (137-145) mmol/L Potassium 4.1 (3.5-5.1) mmol/L Chloride 98 (98-107) mmol/L Carbon Dioxide 29 (22-30) mmol/L BUN 44 H (9-20) mg/dL Creatinine 2.79 H (0.66-1.25) mg/dL Glucose 60 L (74-99) mg/dL Calcium 9.1 (8.4-10.2) mg/dL Adrenal panel 04/13/25 Range/Units 07:30 Sodium 140 (137-145) mmol/L Potassium 4.1 (3.5-5.1) mmol/L Chloride 98 (98-107) mmol/L Carbon Dioxide 29 (22-30) mmol/L BUN 44 H (9-20) mg/dL Creatinine 2.79 H (0.66-1.25) mg/dL Glucose 60 L (74-99) mg/dL Calcium 9.1 (8.4-10.2) mg/dL Assessment and Plan (1) Incomplete bladder emptying Current Visit: Yes Status: Acute Code(s): R33.9 - RETENTION OF URINE, UNSPECIFIED SNOMED Code(s): 279907160 Plan: Bladder scan is typically unreliable in patients with ascites. However, the increased straight catheterization volumes are consistent with incomplete bladder emptying. I would suggest that he be placed on an alpha-js such as tamsulosin with the hopes that this will improve bladder emptying. Time with Patient: Greater than 30
[2025-04-14 06:24] LABS: Glucose,Whole Blood 65 mg/dL (70-110)
[2025-04-14 06:54] LABS: Glucose,Whole Blood 79 mg/dL (70-110)
[2025-04-14 07:33] LABS: African American GFR (CKD) 25 (>60 ml/min/1.73 sqM); Anion Gap 14 mmol/L; Blood Urea Nitrogen 46 mg/dL (9-20); Calcium 9.4 mg/dL (8.4-10.2); Carbon Dioxide 25 mmol/L (22-30); Chloride 98 mmol/L (98-107); Non-African American GFR(CKD) 22 (>60 ml/min/1.73 sqM); Potassium 4.1 mmol/L (3.5-5.1); Sodium 137 mmol/L (137-145)
[2025-04-14 07:48] LABS: Glucose 40 mg/dL (74-99)
[2025-04-14 08:21] VITALS: RESP 18
[2025-04-14 11:29] LABS: Glucose,Whole Blood 75 mg/dL (70-110)
--- NOTE | 2025-04-14 12:02 | P.PN ---
Subjective Progress Note Date: 04/14/25 Patient seen and evaluated bedside. No events overnight, no acute complaints. LE edema improving. Patient states he has been voiding. Vital Signs reviewed and stable General: No acute distress, obese HEENT: Head exam is unremarkable. LUNGS: CTA bilaterally, no audible rhonchi or wheezes. HEART: Regular rate and rhythm ABDOMEN and Genitourinary: distended abdomen, nontender to palpation, scrotal edema noted EXTREMITITES: 2+ pitting edema up to knee, and blisters of the toes, legs are wrapped with bandage Objective - Vital Signs Vital signs: Vital Signs Temp 98 F 04/14/25 08:00 Pulse 64 04/14/25 08:00 Resp 18 04/14/25 08:00 BP 105/72 04/14/25 08:00 Pulse Ox 96 04/14/25 08:00 FiO2 Intake & Output 04/13/25 04/14/25 04/14/25 18:59 06:59 18:59 Intake Total 2240 260 10 Output Total 375 400 Balance 1865 -140 10 Weight 132.5 kg Intake: IV 20 20 10 Invasive Line 2 20 20 10 Oral 2220 240 Output: Urine 375 400 Straight 375 Other: Voiding Method Urinal Urinal # Voids 1 - Labs CBC & Chem 7: 04/08/25 17:32 04/14/25 06:33 Labs: Abnormal Lab Results - Last 24 Hours (Table) 04/13/25 04/13/25 04/13/25 Range/Units 16:36 16:58 17:20 BUN (9-20) mg/dL Creatinine (0.66-1.25) mg/dL Glucose (74-99) mg/dL POC Glucose (mg/dL) 64 L 59 L 126 H (70-110) mg/dL 04/14/25 04/14/25 Range/Units 06:22 06:33 BUN 46 H (9-20) mg/dL Creatinine 2.88 H (0.66-1.25) mg/dL Glucose 40 L* (74-99) mg/dL POC Glucose (mg/dL) 65 L (70-110) mg/dL Assessment and Plan Assessment: AC due to ATN secondary to CRS. 1. Chronic kidney disease stage 3b, recurrent AKIs likely secondary to to cardiorenal syndrome. Baseline creatinine ~ 1.8 this admission. 2. Cardiomyopathy ejection fraction of 30 to 35% with mild to moderate mitral and tricuspid regurgitation. admitted with decompensated HF 3. Severe pulmonary hypertension. 4. Volume overload. getting IV diuretics , cardiology consulted 5. A-fib/flutter. s/p cardioversion Plan: c/w Bumex 1 mg PO QD diamox discontinued Continue Farxiga 5 mg daily aldactone discontinued by cardiology Continue with Entresto Urine output to be closely monitored, informed patient to limit fluids intake to 1.5 L/day and sodium intake to 2 g/day Daily weights. Informed patient once discharged to keep track of weight Strict intake/output Avoid nephrotoxins. I have seen and examined the patient with resident and agree with A&P as written. Check BMP, mag in 2-3 days; f/u outpatient 1 week post d/c.
[2025-04-14 12:03] VITALS: BP 107/68; PULSE 65; TEMP 97.8
--- NOTE | 2025-04-14 13:48 | P.PN ---
Subjective Progress Note Date: 04/14/25 HISTORY OF PRESENT ILLNESS: This is a 64-year-old male patient of Dr. Kat with past medical history of nonischemic cardiomyopathy with EF of 20 to 25%, paroxysmal atrial flutter, valvular heart disease with moderate MR, moderate TR, severe pulmonary hypertension, diabetes, hypertension, dyslipidemia, chronic kidney disease and morbid obesity. Patient was recently established with Dr. Kat after a ho spitalization in February at which time he was treated for heart failure. Patient states that he was also hospitalized last week at [facility] and was in atrial flutter with plan for ISAAC and cardioversion but for some reason this was canceled and patient is scheduled for outpatient ISAAC and cardioversion with Dr. Kat on 04/16. During that hospitalization, patient apparently underwent paracentesis with removal of 4 L of fluid which helped his breathing. He had presented with shortness of breath. Patient has had chronic shortness of breath with worsening as well as weight gain consistent over the past 6 months. He complains of fatigue and not sleeping at night due to his shortness of breath. He states he did have improvement of his swelling while he was at [facility] except for the scrotal edema did not go down. Patient has been started on Bumex 1 mg IV every 12 hours but patient states he does not feel his symptoms are improving. Blood pressure 104/85, heart rate 81, pulse ox 93% on room air. Patient is afebrile. Patient is seen today in the emergency center waiting for a bed on the observation unit. We have requested the patient be admitted to 3 S. -EKG: Atrial tachycardia versus atrial flutter 2-1 conduction -Chest x-ray: Cardiomegaly and mild pulmonary vascular congestion. -Laboratory studies: Troponin 0.041, 0.046, 0.043. WBC 9.1, hemoglobin 14.1. Electrolytes are within normal limits. BUN 43 creatinine 1.94 which appears to be his baseline. Alkaline phosphatase 165. proBNP 7970. -Home cardiac medications: Amiodarone 200 mg twice daily, Eliquis 5 mg twice daily, aspirin 81 mg daily, a atorvastatin 40 mg at bedtime, Bumex 1 mg twice daily, Coreg 3.125 mg twice daily, Jardiance 10 mg daily, Entresto 24-26 mg half a tablet twice daily, spironolactone 12.5 mg daily. -Echocardiogram performed 03/14/2025 revealed EF of 20 to 25%, mild to moderate mitral regurgitation, severe pulmonary hypertension, mild to moderate tricuspid regurgitation, small pericardial effusion. 04/10/2025 Patient examined this morning at the bedside. Patient is currently sitting up in the chair. Patient denies chest pain or pressure. He reports shortness of breath this morning. He remains on IV Bumex. 04/11/2025 Patient examined this morning at bedside. Patient currently denies chest pain or pressure. She does report shortness of breath although improved from yes terday. He remains on IV Bumex. 04/12/2025 Patient is scheduled for ISAAC and cardioversion today with Dr. Kat. Heart rate is in the 70s and 80s, blood pressure 110/74. Patient remains in atrial flu tter. 04/13/2025 Patient seen and examined. Yesterday he underwent ISAAC and cardioversion with Dr. Kat which converted him to sinus rhythm. He remains in a sinus rhythm this morning. He states he is feeling good. He is complaining of scrotal edema. He continues to have lower extremity edema as well. Blood pressure 94/69, heart rate 63, pulse ox 99% on room air. Repeat blood work reveals BUN 44 creatinine 2.79, potassium 4.1. 04/14/2025 Patient seen and examined. Blood pressure 105/72, heart rate 64, pulse ox 96% on room air. Repeat blood work reveals BUN 46 and creatinine 2.88. Patient's renal function continues to worsen and consults been added for nephrology. Patient also noted to have a blood sugar of 40 this morning. Yesterday we transition IV Bumex to oral 2 mg twice daily. Following that, nephrology decrease Bumex down to 1 mg twice daily and discontinue Diamox. Today we will discontinue Aldactone. Patient was also seen by urology for incomplete bladder emptying due to increased right catheterization volumes. PHYSICAL EXAM: VITAL SIGNS: Reviewed. GENERAL: Well-developed in no acute distress. NECK: Supple. No JVD or thyromegaly LUNGS: Respirations even and unlabored. Lungs diminished bilaterally HEART: Irregular rate and rhythm. S1 and S2 heard. EXTREMITIES: Normal range of motion. No clubbing or cyanosis. Peripheral pulses intact. 2+ lower extremity edema ASSESSMENT: Acute on chronic systolic heart failure Flat troponins not indicative of acute coronary syndrome, type II OR secondary to oxygen supply/demand mismatch Typical atrial flutter status post cardioversion Recent diagnosis of cirrhosis of the liver at [facility] status post paracen tesis with removal of 4 L of fluid Nonischemic cardiomyopathy with EF of 20 to 25% Valvular heart disease with moderate MR, moderate TR Severe pulmonary hypertension, RVSP estimated at 56 mmHg Diabetes mellitus type 2 Hypertension Dyslipidemia Chronic kidney disease stage stage III Morbid obesity with BMI of 40 PLAN: Continue current cardiac medications Continue anticoagulation with Eliquis Continue Bumex oral 1 mg twice daily per nephrology Discontinue Aldactone due to worsening renal function Patient is cleared for discharge from cardiology and will follow-up with Dr. Kat in 1 to 2 weeks. Further recommendations pending patient course Nurse practitioner note has been reviewed by physician. Signing provider agrees with the documented findings, assessment, and plan of care documented by BRADDISHER as a scribe. Objective - Vital Signs Vital signs: Vital Signs Temp 98 F 04/14/25 08:00 Pulse 64 04/14/25 08:00 Resp 18 04/14/25 08:00 BP 105/72 04/14/25 08:00 Pulse Ox 96 04/14/25 08:00 FiO2 Intake & Output 04/13/25 04/14/25 04/14/25 18:59 06:59 18:59 Intake Total 2240 260 10 Output Total 375 400 Balance 1865 -140 10 Weight 132.5 kg Intake: IV 20 20 10 Invasive Line 2 20 20 10 Oral 2220 240 Output: Urine 375 400 Straight 375 Other: Voiding Method Urinal Urinal # Voids 1 - Labs CBC & Chem 7: 04/08/25 17:32 04/14/25 06:33 Labs: Abnormal Lab Results - Last 24 Hours (Table) 04/13/25 04/13/25 04/13/25 Range/Units 16:36 16:58 17:20 BUN (9-20) mg/dL Creatinine (0.66-1.25) mg/dL Glucose (74-99) mg/dL POC Glucose (mg/dL) 64 L 59 L 126 H (70-110) mg/dL 04/14/25 04/14/25 Range/Units 06:22 06:33 BUN 46 H (9-20) mg/dL Creatinine 2.88 H (0.66-1.25) mg/dL Glucose 40 L* (74-99) mg/dL POC Glucose (mg/dL) 65 L (70-110) mg/dL
--- NOTE | 2025-04-14 18:12 | P.DS ---
Providers Date of admission: 04/08/25 19:48 Expected date of discharge: 04/14/25 Attending physician: Jose Maria Bernal Consults: 04/08/25 19:36 Consult Physician Routine Consulting Provider: Slade Kat Consult Reason/Comments: CHF exacerbation Do you want consulting provider notified?: Yes, Notify in am 04/11/25 09:35 Consult Physician Routine Consulting Provider: Nanette Bardales Consult Reason/Comments: ckd Do you want consulting provider notified?: Yes 04/13/25 11:36 Consult Physician Routine Consulting Provider: Tyler Ortiz Consult Reason/Comments: Retention Do you want consulting provider notified?: Yes Primary care physician: [facility] Course: Chief Complaint: Jaundice Pleasant 64-year-old patient who follows with Dr. Neves. Chronic medical conditions include CHF, COPD, diabetes, hypertension hyperlipidemia cirrhosis SD about 40 years ago, obstructive sleep apnea does not use a CPAP angioplasty left lower extremity. Patient was here in the hospital about 2 weeks ago was not. With IV Lasix for CHF. Patient was discharged on March 18. On March 17 underwent a cardiac catheterization by Dr. Kat was found to have normal coronary arteries. 2D echo showed a EF of 2024%. Severely increased left ventricular mass. Severe pulmonary hypertension with moderate right ventricular dilatation. Mild to moderate MR. Mild to moderate TR. Patient also found to be atrial fibrillation. Also underlying chronic kidney disease with creatinine of 1.49 in November 2024. Subsequent to that patient was admitted to [facility] where he was diagnosed with cirrhosis. Underwent paracentesis for about 4 L. Was discharged about 7 days ago. Patient was sent in by his home caregiver who felt the patient was jaundiced. Patient states his baseline lower extremity edema is unchanged. Abdominal distention is also unchanged. He is placing has some orthopnea is also pretty much unchanged. Patient started on IV Bumex in the ER. Patient scheduled for repeat paracentesis on Saturday. Patient's appetite is fair. No change in bowel pattern. April 10: Patient remains on IV Bumex 2 mg every 12. Not much urine output. Oral intake fair. Being followed by cardiology. Patient to elevate his scrotum when lying down. April 11: Remains on IV Bumex 2 mg every 12. Better urine output. Consult nephrology. Patient scheduled for ISAAC/cardioversion by Dr. Kat tomorrow. Oral intake fair. Ultram was added for scrotal discomfort. Will add Diamox for some metabolic alkalosis April 12: Patient was seen this morning. IV Bumex 2 mg every 12. Diamox. Aldactone. Entresto. Patient has bilateral lower extremity multiple open ulcers with fat layer exposure. Venous in nature. Wound care team is following. Creatinine did bump up to 2.35. Nephrology also following. Accu- Cheks did drop. Lantus been cut back to 36 units. Patient was scheduled outpatient for ISAAC/cardioversion with Dr. Kat. Cardiology following. April 13: Seen this morning. Underwent ISAAC followed by successful cardioversion. Creatinine is up to 2.79. Switched over to oral Bumex. Will watch renal function further 24 hours. Eating fair. Diamox discontinue. Accu-Cheks close patient is n.p.o. this morning April 14: Patient's creatinine has plateaued off. Remains in sinus rhythm. Cleared by cardiology. And by nephrology. Patient to follow-up with cardiology, nephrology, he will also follow-up with his set making machine operator out of [place]. Also follow-up with the wound care center. Wound care instructions by the wound care team here. Follow-up labs outpatient. Patient dose of Lantus for the cut back. Patient to follow Accu-Cheks Social history: Non-smoker. Alcohol occasionally. 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 Physical examination: VITAL SIGNS: 97.8, 65, 18, 107 x 68, 98% room air GENERAL: Sitting up, at the bedside EYES: Pupils equal. Conjunctiva allison l. HEENT: External appearance of nose and ears normal, oral cavity grossly normal. NECK: JVD not raised; masses not palpable. HEART: First and second heart sounds are normal edema present. LUNGS: Respiratory rate normal; decreased breath sound. ABDOMEN: Soft, but distended nontender, liver spleen not palpable, no masses palpable, scrotal swelling. PSYCH: Alert and oriented x3; mood and affect allison l. MUSCULOSKELETAL:No Clubbing/cyanosis;muscles-grossly intact. OA Extremities: [Bilateral lower extremity open wounds with fat exposure.] Covered with Kemar wrap local dressing INVESTIGATIONS, reviewed in the clinical context: April 14: Potassium 4.1 BUN 46 creatinine 2.88 April 10: Potassium 3.9 BUN 40 creatinine 1.9 April 09, 2025: Potassium 4.9 BUN 42 creatinine 1.84 white count 9.1 hemoglobin 14.1 platelet 385. Total bilirubin 1.4 Troponin I 0.041, 0.046, 0.043 Chest x-ray film personally reviewed by me-cardiomegaly. Questionable venous prominence Abdominal ultrasound: Mild ascites March 12, 2025: Creatinine 1.83 Assessment plan: -Acute on chronic congestive heart failure from both systolic and diastolic dysfunction. EF 20 to 25%. IV Bumex 2 mg twice daily. I's and O's. Follow renal function. Coreg. Entresto. Aldactone. Being followed by cardiology-discharged on Bumex 1 mg twice daily -Recent diagnosed cirrhosis. Likely cryptogenic. Denies any history of alcoholism. This was diagnosed a week ago at [facility]. He is can a follow-up at the same. He had 4 L of paracentesis done over a week ago. Ultrasound currently shows minimal ascites. Follow-up with his set making machine operator at [facility] -Acute on chronic kidney disease. Stage IIIb combination of cardiorenal syndrome.: Stabilized March 12, 2025: Creatinine 1.83 Creatinine today 2.88 Seen by nephrology. Follow-up with Dr. Powell outpatient - Metabolic alkalosis from diuresis Diamox, now discontinued - Cor pulmonale, chronic - Severe secondary pulmonary hypertension - Chronic venous stasis dermatitis lower extremity. Bilateral lower extremity venous wounds with fat layer exposure. Wound care team following. Follow-up the wound care center - Mild to moderate MR, mild to moderate TR - Diabetes mellitus type 2, chronically requiring insulin. Uncontrolled with hyperglycemia Lantus decreased to 25 units nightly. Follow Accu-Cheks - Atrial flutter fibrillation/atrial tachycardia: Successful cardioversion Eliquis. Amiodarone. April 13: ISAAC followed by successful cardioversion Follow-up with Dr. Kat - Morbid obesity BMI 40.7 - COPD non-smoker Combivent - Full code discussed with the patient. Disposition: Home Home care Labs: CBC BMP: 3 to 5 days Past Medical History Past Medical History: Chest Pain / Angina, Heart Failure, COPD, Diabetes Mellitus, Hyperlipidemia, Hypertension, Liver Disease, Myocardial Infarction ([place]), Sleep Apnea/CPAP/BIPAP Additional Past Medical History / Comment(s): wound rt [place], liver cirrhosis Last Myocardial Infarction Date:: 1987 History of Any Multi-Drug Resistant Organisms: None Reported Past Surgical History: Adenoidectomy, Cholecystectomy, Heart Catheterization, Tonsillectomy Additional Past Surgical History / Comment(s): UPP, mastoidectomy, septoplasty, stent in left leg, ablation Past Anesthesia/Blood Transfusion Reactions: No Reported Reaction Past Psychological History: No Psychological Hx Reported Smoking Status: Never smoker Past Alcohol Use History: Occasional Past Drug Use History: None Reported Plan - Discharge Summary Discharge Rx Participant: No New Discharge Prescriptions: New Nystatin 100,000 Unit/gm Powd [Mycostatin Powder] 1 applic TOPICAL BID #1 each Continue Ipratropium/Albuterol Sulfate [Combivent Respimat Inhaler] 2 puff INHALATION RT-DAILY Dulaglutide [Trulicity] 0.75 mg SQ BAIN Aspirin 81 mg PO DAILY 30 Days #30 tab Bumetanide [BUMEX] 1 mg PO BID@0900,1600 30 Days #60 tab Amiodarone [Cordarone] 200 mg PO BID 30 Days #60 tab Apixaban [Eliquis] 5 mg PO BID 30 Days #60 tab Atorvastatin [Lipitor] 40 mg PO HS 30 Days #30 tab Sacubitril/Valsartan [Entresto 24 mg-26 mg Tablet] 0.5 tab PO BID Budesonide/Formoterol Fumarate [Symbicort 80-4.5 Mcg Inhaler] 2 puff INHALATION RT-BID carvediloL [Coreg] 3.125 mg PO BID Empagliflozin [Jardiance] 10 mg PO DAILY Changed Insulin Glargine,Hum.rec.anlog [Toujazzy Solostar] 25 units SQ HS #0 Discontinued metFORMIN HCL ER [Glucophage XR] 1,000 mg PO W/SUPPER Spironolactone [Aldactone] 12.5 mg PO DAILY 30 Days #30 tab Discharge Medication List Ipratropium/Albuterol Sulfate [Combivent Respimat Inhaler] 2 puff INHALATION RT- DAILY 06/02/15 [History] Dulaglutide [Trulicity] 0.75 mg SQ BAIN 03/12/25 [History] Empagliflozin [Jardiance] 10 mg PO DAILY 03/12/25 [History] Amiodarone [Cordarone] 200 mg PO BID 30 Days #60 tab 03/18/25 [Rx] Apixaban [Eliquis] 5 mg PO BID 30 Days #60 tab 03/18/25 [Rx] Aspirin 81 mg PO DAILY 30 Days #30 tab 03/18/25 [Rx] Atorvastatin [Lipitor] 40 mg PO HS 30 Days #30 tab 03/18/25 [Rx] Bumetanide [BUMEX] 1 mg PO BID@0900,1600 30 Days #60 tab 03/18/25 [Rx] Budesonide/Formoterol Fumarate [Symbicort 80-4.5 Mcg Inhaler] 2 puff INHALATION RT-BID 04/08/25 [History] Sacubitril/Valsartan [Entresto 24 mg-26 mg Tablet] 0.5 tab PO BID 04/08/25 [History] carvediloL [Coreg] 3.125 mg PO BID 04/08/25 [History] Insulin Glargine,Hum.rec.anlog [Toujeo Solostar] 25 units SQ HS #0 04/14/25 [Rx] Nystatin 100,000 Unit/gm Powd [Mycostatin Powder] 1 applic TOPICAL BID #1 each 04/14/25 [Rx] Follow up Appointment(s)/Referral(s): wound-centredr [Other] - 1 Week Slade Kat MD [STAFF PHYSICIAN] - 04/19/25 11:00 am Ramirez Neves MD [Primary Care Provider] - 04/23/25 11:30 am (Appointment with Vibha Jorge) [facility] [NON-STAFF] - Isaac Powell DO [STAFF PHYSICIAN] - 04/22/25 8:00 am Gagan Stephens MD [STAFF PHYSICIAN] - 2 Weeks Activity/Diet/Wound Care/Special Instructions: wound care orders Apply absorptive silver to leg ulcerations then wrap with gauze and Kemar wrap - change Saturday, Saturday and Fridays. Elevate above heart for 30 minutes, 3 times per day. home care Discharge Disposition: HOME SELF-CARE
--- NOTE | 2025-06-23 11:23 | P.PCN ---
Date of Procedure: 04/12/24 Operative Findings: Cardioversion Report Performing physician Slade Kat M.D. Procedure performed Successful cardioversion of atrial fibrillation to normal sinus mechanism using 200 J at first attempt Indication Symptomatic atrial fibrillation Complication None Level of sedation The procedure was performed under deep sedation using propofol with [employer]IST in the room Procedure description After obtaining an informed consent the patient was brought to the recovery room. Sedation was introduced using propofol with [employer] C[employer] C[employer]IST in the room. Subsequently the patient cardioverted from atrial fibrillation to normal sinus mechanism using 200 J and first attempt Conclusion Successful cardioversion of atrial fibrillation to normal sinus mechanism using 200 J Postprocedure management Continue the current medical regimen Continue oral anticoagulation Follow-up with the patient
== END 2025-04-14 15:58 | disposition home health service (06) | DRG 291 ==
LOC: EC 16:17 → 6NMEDSUR 19:48 → OBSVTOIN 19:48 → 6NMEDSUR 23:54 → 3SCARD 04-09 09:16
PROVIDERS: ADMIT Hospitalist; ATTEND Hospitalist
PROC: B246ZZ4 Ultrasonography of Right and Left Heart, Transesophageal (ICD-10-PCS; principal; 2025-04-12 07:30)
PROC: 5A2204Z Restoration of Cardiac Rhythm, Single (ICD-10-PCS; principal; 2025-04-12 07:30)
DX: I13.0 Hypertensive heart and chronic kidney disease with heart failure and stage 1 through stage 4 chronic kidney disease, or unspecified chronic kidney disease (principal); I50.43 Acute on chronic combined systolic (congestive) and diastolic (congestive) heart failure; N17.0 Acute kidney failure with tubular necrosis; E87.3 Alkalosis; R18.8 Other ascites; I87.333 Chronic venous hypertension (idiopathic) with ulcer and inflammation of bilateral lower extremity; I48.3 Typical atrial flutter; I27.20 Pulmonary hypertension, unspecified; I27.81 Cor pulmonale (chronic); Z68.41 Body mass index [BMI] 40.0-44.9, adult; K74.69 Other cirrhosis of liver; N18.32 Chronic kidney disease, stage 3b; J44.9 Chronic obstructive pulmonary disease, unspecified; E11.22 Type 2 diabetes mellitus with diabetic chronic kidney disease; I08.1 Rheumatic disorders of both mitral and tricuspid valves; L97.212 Non-pressure chronic ulcer of right calf with fat layer exposed; L97.222 Non-pressure chronic ulcer of left calf with fat layer exposed; E66.01 Morbid (severe) obesity due to excess calories; Z79.4 Long term (current) use of insulin; I42.8 Other cardiomyopathies; I48.91 Unspecified atrial fibrillation; E11.622 Type 2 diabetes mellitus with other skin ulcer; E78.5 Hyperlipidemia, unspecified; G47.33 Obstructive sleep apnea (adult) (pediatric); I25.10 Atherosclerotic heart disease of native coronary artery without angina pectoris; I25.2 Old myocardial infarction; N50.89 Other specified disorders of the male genital organs; R33.9 Retention of urine, unspecified; R39.12 Poor urinary stream; Z79.01 Long term (current) use of anticoagulants; Z79.82 Long term (current) use of aspirin; Z79.51 Long term (current) use of inhaled steroids; Z79.85 Long-term (current) use of injectable non-insulin antidiabetic drugs; Z79.84 Long term (current) use of oral hypoglycemic drugs; Z79.899 Other long term (current) drug therapy
CPT/HCPCS: 36415; 71046; 76705; 80048; 80053; 82248; 83036; 83880; 84484; 85025; 85610; 85730; 92960; 93005; 93312; 93320; 93325; 94640; 96374; 96376; 99285

== ENCOUNTER 2025-04-17 04:38 | Emergency (ER) | payer MEDICARE ==
[2025-04-17] MEDS ORDERED: MORPHINE SULFATE 2 MG/ML SYRINGE IV PRN (04:49)
[2025-04-17] MEDS ORDERED: ARTIFICIAL TEARS-HYPROMELLOSE DROPS 15 ML BTL BOTH EYES PRN (04:49)
[2025-04-17] MEDS ORDERED: LORazepam 1 MG/0.5 ML VIAL IV PRN (04:49)
--- NOTE | 2025-04-17 04:50 | ED ---
Recheck HPI - General Stated Complaint: JAMIA Time Seen by Provider: 04/17/25 04:48 Source: RN notes reviewed, old records reviewed Mode of arrival: EMS Limitations: no limitations - History of Present Illness Initial Comments: This is a 64-year-old male presenting to the ER for evaluation of discomfort patient is presenting from home as he is transitioning to hospice care MD Complaint: medication refill request Returns Today for: persistent/worsening pain related to initial visit Symptoms Since Prior Visit: worsening pain Associated Symptoms: none Treatments Prior to Arrival: Given Pain Meds on - Related Data Home Medications Medication Instructions Recorded Confirmed Ipratropium/Albuterol Sulfate 2 puff INHALATION RT-DAILY 06/02/15 04/08/25 [Combivent Respimat Inhaler] Dulaglutide [Trulicity] 0.75 mg SQ BAIN 03/12/25 04/08/25 Empagliflozin [Jardiance] 10 mg PO DAILY 03/12/25 04/08/25 Budesonide/Formoterol Fumarate 2 puff INHALATION RT-BID 04/08/25 04/08/25 [Symbicort 80-4.5 Mcg Inhaler] Sacubitril/Valsartan [Entresto 24 0.5 tab PO BID 04/08/25 04/08/25 mg-26 mg Tablet] carvediloL [Coreg] 3.125 mg PO BID 04/08/25 04/08/25 Previous Rx's Medication Instructions Recorded Amiodarone [Cordarone] 200 mg PO BID 30 Days #60 tab 03/18/25 Apixaban [Eliquis] 5 mg PO BID 30 Days #60 tab 03/18/25 Aspirin 81 mg PO DAILY 30 Days #30 tab 03/18/25 Atorvastatin [Lipitor] 40 mg PO HS 30 Days #30 tab 03/18/25 Bumetanide [BUMEX] 1 mg PO BID@0900,1600 30 Days #60 03/18/25 tab Insulin Glargine,Hum.rec.anlog 25 units SQ HS #0 04/14/25 [Toujeo Solostar] Nystatin 100,000 Unit/gm Powd 1 applic TOPICAL BID #1 each 04/14/25 [Mycostatin Powder] Allergies Allergy/AdvReac Type Severity Reaction Status Date / Time No Known Allergies Allergy Verified 04/08/25 20:47 Review of Systems ROS Statement: Those systems with pertinent positive or pertinent negative responses have been documented in the HPI. ROS Other: All systems not noted in ROS Statement are negative. Past Medical History Past Medical History: Chest Pain / Angina, Heart Failure, COPD, Diabetes Mellitus, Hyperlipidemia, Hypertension, Liver Disease, Myocardial Infarction ([place]), Sleep Apnea/CPAP/BIPAP Additional Past Medical History / Comment(s): wound rt [place]ley, liver cirrhosis Last Myocardial Infarction Date:: 1987 History of Any Multi-Drug Resistant Organisms: None Reported Past Surgical History: Adenoidectomy, Cholecystectomy, Heart Catheterization, Tonsillectomy Additional Past Surgical History / Comment(s): UPP, mastoidectomy, septoplasty, stent in left leg, ablation Past Anesthesia/Blood Transfusion Reactions: No Reported Reaction Past Psychological History: No Psychological Hx Reported Smoking Status: Never smoker Past Alcohol Use History: Occasional Past Drug Use History: None Reported - Past Family History Mother Family Medical History: No Reported History Father Family Medical History: Hypertension General Exam General appearance: alert, in no apparent distress Head exam: Present: atraumatic, normocephalic, normal inspection Eye exam: Present: normal appearance, PERRL, EOMI. Absent: scleral icterus, conjunctival injection, periorbital swelling ENT exam: Present: normal exam, mucous membranes moist Neck exam: Present: normal inspection. Absent: tenderness, meningismus, lymphadenopathy Respiratory exam: Present: normal lung sounds bilaterally. Absent: respiratory distress, wheezes, rales, rhonchi, stridor Cardiovascular Exam: Present: regular rate, normal rhythm, normal heart sounds. Absent: systolic murmur, diastolic murmur, rubs, gallop, clicks GI/Abdominal exam: Present: soft, normal bowel sounds. Absent: distended, tenderness, guarding, rebound, rigid Extremities exam: Present: normal inspection, full ROM, normal capillary refill. Absent: tenderness, pedal edema, joint swelling, calf tenderness Back exam: Present: normal inspection Neurological exam: Present: alert, oriented X3, CN II-XII intact Psychiatric exam: Present: normal affect, normal mood Skin exam: Present: warm, dry, intact, normal color. Absent: rash Course Vital Signs 04/17/25 04/17/25 04:43 05:10 Temperature 97.5 F L Pulse Rate 89 86 Respiratory 22 22 Rate Blood Pressure 119/65 O2 Sat by Pulse 93 L 97 Oximetry - Reevaluation(s) Reevaluation #1: 04/17/25 05:17 Medical records were reviewed Reevaluation #2: 04/17/25 05:17 Continue to transition to hospice care Medical Decision Making - Medical Decision Making 64 male will be transferred to inpatient hospice, with transition to home hospice care Disposition Clinical Impression: DNR no code (do not resuscitate), Hospice care Disposition: ADMITTED IP TO THIS [facility] Condition: Undetermined Is patient prescribed a controlled substance at d/c from ED?: No Referrals: Ramirez Neves MD [Primary Care Provider] - 1-2 days
[2025-04-17 04:52] VITALS: BP 119/65; RESP 22; TEMP 97.5
[2025-04-17] MEDS: ONDANSETRON 4 MG/2 ML VIAL IVP PRN (05:05)
[2025-04-17] MEDS: MORPHINE SULFATE 4 MG/ML SYRINGE IV PRN (05:07)
[2025-04-17 05:11] VITALS: PULSE 86
[2025-04-17] MEDS: SCOPOLAMINE 1 MG/72 HR PATCH TRANSDERM STA (06:12)
== END 2025-04-17 06:13 | disposition other institution (70) ==
LOC: EC 04:38 → 5NMEDONC 05:33 → UNDOADMOB 05:33 → EC 06:13
DX: Z51.5 Encounter for palliative care (principal); Z66 Do not resuscitate
CPT/HCPCS: 99285; 96374; 96375; J2270; J2405; 96361

== ENCOUNTER 2025-04-17 05:29 | Observation (INO) | payer MEDICAID, MEDICARE ==
[2025-04-17] MEDS ORDERED: ARTIFICIAL TEARS-HYPROMELLOSE DROPS 15 ML BTL BOTH EYES PRN (05:55)
[2025-04-17] MEDS ORDERED: ONDANSETRON 4 MG/2 ML VIAL IVP PRN (05:55)
[2025-04-17] MEDS ORDERED: DRY MOUTH SPRAY 59 SPRAY/59 ML SPRAY MUCOUS MEM PRN (05:55)
[2025-04-17] MEDS: MORPHINE SULFATE 4 MG/ML SYRINGE IV PRN (12:09)
[2025-04-17] MEDS: MORPHINE SULFATE 2 MG/ML SYRINGE IV PRN (13:08)
[2025-04-17 19:43] VITALS: RESP 16
--- NOTE | 2025-04-17 22:12 | P.HPIM ---
History of Present Illness H&P Date: 04/17/25 Chief Complaint: Shortness of breath Patient is a 64-year-old male with a past medical history of coronary artery disease, chronic CHF with systolic and diastolic dysfunction ejection fraction 2024%, hypertension, hyperemia, diabetes type 2, COPD, obstructive sleep apnea, cryptogenic liver cirrhosis, CKD stage IIIb, and peripheral vascular disease was brought to the hospital by his family due to worsening shortness of breath. Patient was recently admitted to the hospital on 04/14/2024. Since his symptoms are not improving, family has decided to go for comfort care. Recent laboratory data reviewed. Review of Systems Review of systems could not be obtained from the patient due to mental status change. ROS unobtainable: due to mental status Past Medical History Past Medical History: Chest Pain / Angina, Heart Failure, COPD, Diabetes Mellitus, Hyperlipidemia, Hypertension, Liver Disease, Myocardial Infarction ([place]), Sleep Apnea/CPAP/BIPAP Additional Past Medical History / Comment(s): wound rt [place], liver cirrhosis Last Myocardial Infarction Date:: 1987 History of Any Multi-Drug Resistant Organisms: None Reported Past Surgical History: Adenoidectomy, Cholecystectomy, Heart Catheterization, Tonsillectomy Additional Past Surgical History / Comment(s): UPP, mastoidectomy, septoplasty, stent in left leg, ablation Past Anesthesia/Blood Transfusion Reactions: No Reported Reaction Past Psychological History: No Psychological Hx Reported Smoking Status: Never smoker Past Alcohol Use History: Occasional Past Drug Use History: None Reported - Past Family History Mother Family Medical History: No Reported History Father Family Medical History: Hypertension Medications and Allergies Home Medications Medication Instructions Recorded Confirmed Type Ipratropium/Albuterol Sulfate 2 puff INHALATION RT-DAILY 06/02/15 04/17/25 History [Combivent Respimat Inhaler] Dulaglutide [Trulicity] 0.75 mg SQ BAIN 03/12/25 04/17/25 History Empagliflozin [Jardiance] 10 mg PO DAILY 03/12/25 04/17/25 History Amiodarone [Cordarone] 200 mg PO BID 30 Days #60 tab 03/18/25 04/17/25 Rx Apixaban [Eliquis] 5 mg PO BID 30 Days #60 tab 03/18/25 04/17/25 Rx Aspirin 81 mg PO DAILY 30 Days #30 tab 03/18/25 04/17/25 Rx Atorvastatin [Lipitor] 40 mg PO HS 30 Days #30 tab 03/18/25 04/17/25 Rx Bumetanide [BUMEX] 1 mg PO BID@0900,1600 30 Days #60 03/18/25 04/17/25 Rx tab Budesonide/Formoterol Fumarate 2 puff INHALATION RT-BID 04/08/25 04/17/25 History [Symbicort 80-4.5 Mcg Inhaler] Sacubitril/Valsartan [Entresto 24 0.5 tab PO BID 04/08/25 04/17/25 History mg-26 mg Tablet] carvediloL [Coreg] 3.125 mg PO BID 04/08/25 04/17/25 History Insulin Glargine,Hum.rec.anlog 25 units SQ HS #0 04/14/25 04/17/25 Rx [Toujeo Solostar] Nystatin 100,000 Unit/gm Powd 1 applic TOPICAL BID #1 each 04/14/25 04/17/25 Rx [Mycostatin Powder] Allergies Allergy/AdvReac Type Severity Reaction Status Date / Time No Known Allergies Allergy Verified 04/17/25 14:30 Physical Exam Vitals: Vital Signs Temp Pulse Pulse Resp BP BP Pulse Ox 04/17/25 12:14 84 19 96/66 97 04/17/25 10:40 19 04/17/25 10:24 85 19 138/89 95 04/17/25 08:30 22 04/17/25 06:47 97.8 F 79 22 105/73 97 04/17/25 06:22 97.5 F L 85 22 Intake and Output 04/16/25 04/17/25 04/17/25 22:59 06:59 14:59 Other: Weight 136.078 kg PHYSICAL EXAMINATION: Patient is lying in the bed no distress. Awake alert but drowsy and let hargic... HEENT: Normocephalic. Neck is supple. Pupils reactive. Nostrils clear. Oral cavity is moist. Neck reveals no JVD, carotid bruits, or thyromegaly. CHEST EXAMINATION: Trachea is central. Symmetrical expansion. Bibasilar diminished sounds. CARDIAC: Normal S1, S2 with no gallops. No murmurs ABDOMEN: Soft. Bowel sounds normal. No organomegaly. No abdominal bruits. Extremities: reveal no edema. No clubbing or cyanosis Neurologically awake, alert, oriented x 0-1 no gross focal deficits noted Skin: No rash or skin lesions. Psychiatric: Could not be assessed completely Musculoskeletal: No joint swelling or deformity. Thrombosis Risk Factor Assmnt - DVT/VTE Prophylaxis DVT/VTE Prophylaxis: Pharmacologic Prophylaxis ordered Assessment and Plan Assessment: Altered mental status due to acute metabolic encephalopathy Acute on chronic CHF with systolic and diastolic function ejection fraction 20 to 25% Recently diagnosed with cryptogenic liver cirrhosis at Chronic kidney disease stage IIIb with baseline creatinine around 1.9 Severe pulmonary hypertension Chronic venous stasis dermatitis bilateral lower extremity Mild to moderate MR and mild to moderate TR Diabetes type 2 uncontrolled with hyperglycemia and episodes of hypoglycemia previously Atrial fibrillation/flutter with history of cardioversion. Was on anticoagulation with Eliquis Morbid obesity with a BMI more than 40 COPD no prior history of smoking CODE STATUS. Comfort care. Plan: Patient will be continued on pain management and comfort measures. Hospice care consult was placed. Prognosis poor at this time. Family is at bedside and is agreeable. Time with Patient: Greater than 30
[2025-04-18 01:56] VITALS: BP 117/64; PULSE 88; TEMP 97.7
[2025-04-18 06:28] LABS: Glucose,Whole Blood 156 mg/dL (70-110)
== END 2025-04-18 15:55 | disposition expired ==
LOC: EC 05:29 → 5NMEDONC 05:33 → 4SSUR 17:20
PROVIDERS: ADMIT Hospitalist; ATTEND Hospitalist
DX: G93.41 Metabolic encephalopathy (principal); I25.10 Atherosclerotic heart disease of native coronary artery without angina pectoris; I13.0 Hypertensive heart and chronic kidney disease with heart failure and stage 1 through stage 4 chronic kidney disease, or unspecified chronic kidney disease; I50.42 Chronic combined systolic (congestive) and diastolic (congestive) heart failure; N18.32 Chronic kidney disease, stage 3b; E11.22 Type 2 diabetes mellitus with diabetic chronic kidney disease; J44.9 Chronic obstructive pulmonary disease, unspecified; G47.33 Obstructive sleep apnea (adult) (pediatric); E11.51 Type 2 diabetes mellitus with diabetic peripheral angiopathy without gangrene; I27.20 Pulmonary hypertension, unspecified; I87.2 Venous insufficiency (chronic) (peripheral); I08.1 Rheumatic disorders of both mitral and tricuspid valves; E11.65 Type 2 diabetes mellitus with hyperglycemia; I48.91 Unspecified atrial fibrillation; I48.92 Unspecified atrial flutter; E66.01 Morbid (severe) obesity due to excess calories; Z68.41 Body mass index [BMI] 40.0-44.9, adult; Z79.85 Long-term (current) use of injectable non-insulin antidiabetic drugs; Z79.84 Long term (current) use of oral hypoglycemic drugs; Z79.01 Long term (current) use of anticoagulants; Z79.82 Long term (current) use of aspirin; Z79.51 Long term (current) use of inhaled steroids; Z79.4 Long term (current) use of insulin; Z79.899 Other long term (current) drug therapy
CPT/HCPCS: 96376 ×2; 96374; G0379; G0378 ×3; J2270 ×3